=== PATIENT | male | born 1940 | race Caucasian/White ===

== ENCOUNTER 2017-12-14 12:26 | Emergency (ER) | payer MEDICARE, OTHER ==
[2017-12-14 12:45] VITALS: BP 174/81
--- NOTE | 2017-12-14 13:23 | UC ---
Phil Howe Stephanie, scribed for Edwin Witt MD on 12/14/17 at 1304 . Cardiac HPI - HPI Summary HPI Summary: The pt is a 77 y/o M that presents to with CP that began yesterday. The CP is intermittent and is aggravated by exertion and alleviated by rest. The CP is described as pressure/heaviness. Symptoms include chills, diaphoresis, gastric reflux, SOB, chronic knee pain, and black stool that has been present for over 1 week. The CP is located in the mid sternal chest and radiates to the posterior neck and back. The pt reports that last night it felt like someone was sitting on his chest. The pt denies nausea. Currently the pt is not experiencing pain but at its worse, the pain is described as an 8 in severity. - History of Current Complaint Chief Complaint: UCChestPain Stated Complaint: CHEST PAIN DIZZY Time Seen by Provider: 12/14/17 12:42 Hx Obtained From: Patient Onset/Duration: Lasting Days - 1, Resolved Timing: Intermittent Episodes Lasting: - during exertion Initial Severity: Moderate Current Severity: None Chest Pain Location: Mid Sternal Character: Heaviness, Pressure/Squeezing Aggravating Factor(s): Exertion Alleviating Factor(s): Rest Associated Signs & Symptoms: Positive: Chest Pain, SOB, Diaphoresis. Negative: Nausea/Vomiting - Allergy/Home Medications Allergies/Adverse Reactions: Allergies Allergy/AdvReac Type Severity Reaction Status Date / Time "PAIN PILL" AdvReac Intermediate GI Upset Uncoded 01/16/16 15:44 PMH/Surg Hx/FS Hx/Imm Hx Cardiovascular History: Cardiac Disease - Surgical History Surgical History: Yes Surgery Procedure, Year, and Place: carotid artery left; torn rotator cuff right - Family History Known Family History: Positive: Unknown - Pt denies family history when asked. - Social History Occupation: Retired Lives: With Family Alcohol Use: Daily Alcohol Amount: "A FEW A DAY" Substance Use Type: None Smoking Status (MU): Former Smoker When Did the Patient Quit Smoking/Using Tobacco: 2002 - Immunization History Most Recent Tetanus Shot: 01/13/16 Review of Systems Constitutional: Chills Skin: Other - diaphoresis Eyes: Negative ENT: Negative Respiratory: Shortness Of Breath Cardiovascular: Chest Pain Gastrointestinal: Other - gastric reflux, black stool Genitourinary: Negative Motor: Negative Neurovascular: Negative Musculoskeletal: Other: - chronic knee pain Neurological: Negative Psychological: Negative All Other Systems Reviewed And Are Negative: Yes Physical Exam Triage Information Reviewed: Yes Vital Signs: Initial Vital Signs Temp 98.2 F 12/14/17 12:36 Pulse 88 12/14/17 12:36 Resp 18 12/14/17 12:36 BP 174/81 12/14/17 12:36 Pulse Ox 99 12/14/17 12:36 Vital Signs Reviewed: Yes - Additional Comments General: well-appearing, no pain distress Skin: warm, color reflects adequate perfusion, dry Head: normal Eyes: EOMI, CRISTINA ENT: normal Neck: supple, nontender Respiratory: CTA, breath sounds present Cardiovascular: RRR Abdomen: soft, nontender Bowel: present Musculoskeletal: normal, strength/ROM intact Neurological: normal, sensory/motor intact, A&O x3 Psychological: affect/mood appropriate Diagnostics - EKG Cardiac Rhythm: Sinus: Normal - 12:33, 80 BPM, RBBB, No old EKG to compare to. Ectopy: None ST Segment: Normal - Assessment/Plan Course Of Treatment: Medications reviewed. I RECOMMENDED TRANSFER TO THE ED BY AMBULANCE. THE PATIENT DECLINED. AMA FORM EXPLAINED AND PATIENT SIGNED IT. EKG WITHOUT STEMI. PATIENT ALSO REPORTS BLACK STOOLS SO, ANEMIA IS ANOTHER CONCERN. DISCUSSED WITH DR CHRISTOPHER BARTON IN THE ED. - Clinical Impression Provider Diagnoses: CHEST PAIN, SHORTNESS OF BREATH Discharge - Discharge Plan Condition: Guarded Disposition: AGAINST MEDICAL ADVICE Patient Education Materials: Chest Pain (ED), Shortness of Breath (ED) Referrals: Segun Salinas MD [Primary Care Provider] - Additional Instructions: GO DIRECTLY TO THE EMERGENCY DEPARTMENT FOR FURTHER EVALUATION OF YOUR CHEST PAIN AND SHORTNESS OF BREATH. The documentation as recorded by the Phil maloney Stephanie accurately reflects the service I personally performed and the decisions made by me, Edwin Witt MD.
== END 2017-12-14 12:58 | disposition left against medical advice (07) ==
LOC: UCEAST 12:26
DX: R07.89 Other chest pain (principal); R06.02 Shortness of breath; R61 Generalized hyperhidrosis; I45.10 Unspecified right bundle-branch block; Z87.891 Personal history of nicotine dependence
CPT/HCPCS: 93005; 99212; G0463

== ENCOUNTER 2017-12-14 13:17 | Inpatient (IN) | payer MEDICARE, OTHER ==
--- NOTE | 2017-12-14 14:12 | RAD ---
HISTORY: Chest pain COMPARISONS: February 10, 2014 VIEWS: 4: Frontal dual-energy and lateral views of the chest. FINDINGS: CARDIOMEDIASTINAL SILHOUETTE: The cardiomediastinal silhouette is normal. MORENO: The moreno are normal. PLEURA: The costophrenic angles are sharp. No pleural abnormalities are noted. LUNG PARENCHYMA: The lungs are clear. ABDOMEN: The upper abdomen is clear. There is no subphrenic gas. BONES AND SOFT TISSUES: No bone or soft tissue abnormalities are noted. OTHER: None. IMPRESSION: NO ACTIVE CARDIOPULMONARY DISEASE.
[2017-12-14 14:42] LABS: ABS Basophils 0 10^3/ul (0-0.2); ABS Eosinophils 0 10^3/ul (0-0.6); ABS Lymphocytes 1.4 10^3/ul (1.0-4.8); ABS Monocytes 0.4 10^3/ul (0-0.8); ABS Neutrophils 3.5 10^3/ul (1.5-7.7); ABS Nucleated RBC 0 10^3/ul; Eosinophil % 0.7 % (0-6); Hematocrit 30 % (42-52); Hemoglobin 10.2 g/dl (14.0-18.0); Lymphocyte % 26.3 % (25-47); Mean Corpuscular HGB Conc 34 g/dl (31-36); Mean Corpuscular Hemoglobin 33 pg (27-31); Mean Corpuscular Volume 96 fL (80-94); Mean Platelet Volume 7 um3 (7.4-10.4); Nucleated Red Blood Cells % 0.1; Platelet Count 169 10^3/ul (150-450); Red Blood Count 3.11 10^6/ul (4.0-5.4); Red Cell Distribution Width 14 % (10.5-15); White Blood Count 5.2 10^3/ul (3.5-10.8)
[2017-12-14 16:22] LABS: Urine Appearance Clear; Urine Blood Negative (Negative); Urine Color Yellow; Urine Ketones Negative (Negative); Urine Protein Negative (Negative); Urine Specific Gravity 1.018 (1.010-1.030); Urine Urobilinogen Negative (Negative)
[2017-12-14] MEDS ORDERED: Pantoprazole IV* 40 MG IV ONE (16:56)
[2017-12-14] MEDS: Pantoprazole IV* 80 MG in NS 0.9% 250 ML* 250 ML IVPB SCH (19:13)
[2017-12-14] MEDS: NS 0.9% 1000 ML* 1,000 ML IV SCH (20:13)
[2017-12-14 20:38] LABS: Hematocrit 28 % (42-52); Hemoglobin 9.7 g/dl (14.0-18.0)
--- NOTE | 2017-12-15 01:01 | HP ---
HISTORY AND PHYSICAL: DATE OF ADMISSION: 12/14/17 PRIMARY CARE PROVIDER: None. VASCULAR SURGEON: Segun Salinas MD ATTENDING PHYSICIAN: Zara Marley DO * (dictated by Krystian Gibson NP) CHIEF COMPLAINT: Shortness of breath and chest pain with melena. HISTORY OF PRESENT ILLNESS: Mr. Reilly is a 77-year-old male with past medical history significant for bilateral carotid stenosis, who is status post a left carotid endarterectomy and has a right occluded carotid who presented initially to the urgent care center with complaints of shortness of breath and chest pain. The patient states that for the last 3 to 4 months, he has had shortness of breath and that it has been worse over the last week. He also reports intermittently for 1 week chest pain that is worse with ambulation and improves when he is resting. He also reports feeling "woozy and dizzy" especially when he bends down and stands up. He reports chills and hot flashes. He reports melena for 1 week. He denies any nausea, vomiting, diarrhea, diaphoresis, abdominal pain, urinary symptoms such as dysuria or hematuria. He describes his chest pain as a heaviness and then if he is doing an activity such as shovelling, he describes the pain as an ache on the left side of his chest. Due to his symptoms, he decided to present to urgent care center for further evaluation. The patient also reports indigestion. While at Urgent Care, the patient had an EKG showing a sinus rhythm at a rate of 80 and a right bundle-branch block with no previous EKGs for comparison. The patient was asked to be taken to the emergency room by EMS and he declined and drove himself to the emergency room. While in the emergency room, the patient denied shortness of breath or chest pain. He had labs with a troponin of 0.00, hemoglobin of 10.2, hematocrit of 30. He had a guaiac that was positive. He had a repeat EKG showing a sinus rhythm at a rate of 75. No acute signs of ischemia and this was similar to previous EKG. He had a chest x-ray showing no active cardiopulmonary disease. Due to the patient's symptoms, the Hospitalists were asked to evaluate the patient for admission. PAST MEDICAL HISTORY: Bilateral carotid stenosis with right carotid occlusion. PAST SURGICAL HISTORY: 1. Status post left carotid endarterectomy. 2. Status post right rotator cuff repair. HOME MEDICATIONS: 1. Aspirin 325 mg oral daily. 2. Acetaminophen 1000 mg oral daily as needed for pain. ALLERGIES: No known drug allergies. FAMILY HISTORY: The patient's father passed at age 58 from what they were told was a blood clot to his heart. The patient's sister has a history of diabetes and an unknown cancer that she is currently undergoing treatment for. SOCIAL HISTORY: The patient is a former smoker. He reports quitting 14 years ago. Prior to that, he reports a few year smoking history of 1 pack a day. He reports drinking 2 beers daily and occasionally more. He denies recreational drug use. 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 His , Ramandeep Reilly , will be his surrogate decision maker in the event he is unable to make decisions for himself. REVIEW OF SYSTEMS: I performed an 11-point review of systems, all the pertinent positive and negatives are mentioned in the history of present illness. Remaining review of systems are negative. PHYSICAL EXAMINATION GENERAL APPEARANCE: The patient is alert and pleasant, appears to be in no acute distress. VITAL SIGNS: Temperature 97.9, heart rate 60, respiratory rate 11, O2 sat 99% on room air, blood pressure 138/62. HEENT: Normocephalic, atraumatic. Pupils are equal and reactive to light. Extraocular movements are intact. RESPIRATORY: There is no accessory muscle use. Lungs are clear to auscultation , bilateral. CARDIOVASCULAR: Regular rate and rhythm. S1, S2 present. There are no murmurs , rubs, or gallops heard. ABDOMEN: Soft, nontender, nondistended. There are bowel sounds present x4. EXTREMITIES: There is no lower extremity edema. DP, PT pulses are 2+ and symmetric. MUSCULOSKELETAL: There is no clubbing or cyanosis noted. The patient exhibits good strength in all extremities. The patient reports reproduction of chest pain with palpation, but states that the pain with palpation is different than the pain he has with exertion. NEUROLOGIC: The patient is alert and oriented x4. Cranial nerves II through XII are grossly intact. PSYCHOLOGICAL: The patient is calm and cooperative. SKIN: There are no rashes or abnormalities seen. DIAGNOSTIC STUDIES/LABORATORY DATA: Sodium 136, potassium 4.0, chloride 105, CO2 26, BUN 28, creatinine 1.25. Glucose 91, troponin 0.00. White blood cell count 5.9, hemoglobin 10.2, hematocrit 30, and platelet count 169. A guaiac positive, urinalysis negative. EKG from Urgent Care shows a sinus rhythm with a rate of 80 and a right bundle- branch block and no acute signs of ischemia. EKG from the emergency room shows a sinus arrhythmia with a rate of 75 and no acute signs of ischemia. There are no previous EKGs for comparison. Chest x-ray from today, radiologist's impression, no active cardiopulmonary disease. IMPRESSION: Mr. Reilly is a 77-year-old male with past medical history significant for bilateral carotid stenosis, status post left carotid endarterectomy who presented to Urgent Care and then the emergency room with complaints of shortness of breath, chest pain, and melena. He will be admitted as an observation for chest pain and suspected upper GI bleed. ASSESSMENT: 1. Melena. I suspect this represents an upper GI bleed. The patient takes a full dose of aspirin daily and reports heartburn. GI has been contacted by the emergency room and will consult on the patient. He has been given a dose of Protonix 80 mg bolus and will be placed on a Protonix drip. We will trend his H and H and have 2 large [address] IVs in place at all times. We will get orthostatic vital signs on him. I suspect that some of the patient's shortness of breath and dizziness are secondary to his GI bleeding. 2. Chest pain. The patient's chest pain is concerning. It is exertional and improves with rest. But due to his GI bleed, I am unable to continue aspirin on him. He does not have an elevated troponin or EKG changes. For now, the plan will be to trend his troponins, monitor him on telemetry. We will touch base with Cardiology tomorrow and see if they have any further recommendations. He will need a stress test eventually. His RAINER score is 2. 3. Carotid stenosis. The patient follows with Dr. Salinas. 4. Fluids, electrolytes and nutrition: The patient will be on a clear liquid diet. He will have normal saline at 125 an hour. 5. Code status: Full code. 6. DVT prophylaxis: The patient is at high risk. He will have SCDs only as chemical DVT prophylaxis is contraindicated in the setting of a GI bleed. 7. Disposition: Observation. TIME SPENT: Time for this admission was approximately 60 minutes with greater than half of that was spent with the patient and his daughter discussing medications, past medical history and events leading up to his arrival today and performing a physical examination. The case has been reviewed with the attending, Dr. Marley, who agrees with the plan of care. KRYSTIAN ARMENDARIZ, [place] [id number]/CPS #: [id number] JHONATHAN
--- NOTE | 2017-12-15 01:58 | CONS ---
GASTROENTEROLOGY CONSULTATION: DATE OF CONSULT: 12/14/17 HOSPITAL PROVIDER: Zara Marley DO PRIMARY CARE PHYSICIAN: None. REASON FOR CONSULTATION: Melena. HISTORY OF PRESENT ILLNESS: Mr. Reilly is a pleasant 77-year-old male with a history of bilateral carotid artery disease, status post left endarterectomy, on baby aspirin who presented earlier today with a 1-week history of melena with associated dyspnea and chest pain. He denies a prior history of these symptoms. He denies [id number] NSAID use besides his baby aspirin. He describes his shortness of breath that has been intermittently worsening over the past 3 months. Over the last week, he developed melena as well as significant pressure in his chest described like "someone sitting on my chest." He admits to significant dyspnea on exertion over the last few weeks and feeling "woozy." He denies nausea, vomiting, but does admit to chronic gastroesophageal reflux disease intermittently, but denies dysphagia to solids and liquids. He denies bright red blood per rectum. He does not see a primary care physician regularly. Therefore, it is unknown what his baseline hemoglobin is. He states he has never been told that he was anemic in the past. He denies a previous history of an endoscopy and colonoscopy. No family history of gastrointestinal malignancies. Gastroenterology was consulted for the patient's history of melena and positive melena on rectal exam in the ER. He is also found to be slightly anemic with a hemoglobin of 10.2 and an MCV of 96. PAST MEDICAL HISTORY: 1. Bilateral carotid artery disease. PAST SURGICAL HISTORY: 1. Left endarterectomy. 2. Right rotator cuff tear. HOME MEDICATIONS: 1. Aspirin 81 mg daily. 2. Tylenol 1000 mg as needed. ALLERGIES: To PAIN PILL?, which causes a GI upset. SOCIAL HISTORY: He admits to drinking 2 beers daily. Denies recreational drug use. Quit tobacco 14 years ago. 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 REVIEW OF SYSTEMS: On a 14-point scale has been reviewed and all pertinent positives and negatives have been noted above in the HPI. PHYSICAL EXAM: Vital Signs: Temperature 97.8, heart rate 92, respirations 16, oxygenation 99% on room air, blood pressure 125/70. Generally, the patient is alert and oriented x3, in no acute distress, lying comfortably in his bed, well - nourished appearing. HEENT: Normocephalic, atraumatic. Extraocular muscles intact. Anicteric sclerae bilaterally. Moist mucous membranes. Cardiovascular : Regular rate and rhythm. Pulmonary: Clear to auscultation bilaterally. Abdominal Exam: Soft, nontender, nondistended. No rebound, guarding, or rigidity. No surgical scars are noted. Extremities: No clubbing, cyanosis or edema. Neurological: No gross focal deficits. LABORATORY DATA: WBCs 5.2, hemoglobin 10.2, hematocrit 30, platelets 169. PTT 28.1, sodium 136, potassium 4.0, chloride 105, CO2 26, anion gap 5, BUN 28, creatinine 1.25, glucose 91, calcium 9.1, magnesium 2.5, total bilirubin 0.40, AST 22, ALT 18, alkaline phosphatase 28, total creatine kinase 198, CK-MB 6.0, troponin 0.00, beta natriuretic peptide 50, total protein 6.3, albumin 3.6, globulin 2.7, TSH 2.70. ASSESSMENT AND PLAN: Mr. Reilly is a pleasant 77-year-old male with a history of bilateral carotid artery disease, status post left endarterectomy, on aspirin 81 mg daily, who presented to [facility] with a 1-week history of melena and worsening shortness of breath, dyspnea on exertion and chest pain. He was found to be slightly anemic with hemoglobin of 10.2. Rectal examination revealed melena. He was also noted to have acute kidney injury with a creatinine of 1.25 on admission. He denies a previous history of an endoscopy and colonoscopy. Gastroenterology was consulted for further evaluation and treatment of patient's symptoms. 1. Melena. The patient has had a 1-week history of melena and is currently on aspirin 81 mg daily. He denies a prior history of an endoscopy and denies any recent [id number] NSAID use. He is in need of an upper endoscopy for further evaluation. If upper endoscopy is negative, he may need a colonoscopy for further evaluation. Recommend monitoring hemoglobin daily and transfuse if hemoglobin becomes less than 7. The patient may be on clear liquids tonight and NPO after midnight and we will plan to perform an endoscopy tomorrow for further evaluation. The patient is currently on a Protonix drip for possible upper GI bleeding. 2. Chest pain. In the ER, the patient had a troponin of 0.00 and a normal EKG which rules out an acute issue. There is a question as to whether or not the patient will receive a stress test. If he does, we will need a cardiac clearance prior to performing an upper endoscopy tomorrow. 3. Acute kidney injury. May be secondary to gastrointestinal bleeding. Recommend following creatinine level in a.m. The patient is currently on IV fluids. 4. Bilateral carotid artery disease, status post endarterectomy. Patient is on aspirin 81 mg daily. Thank you, Dr. Marley, for allowing us to participate in the care of your patient. If you should have any further questions or concerns, please do not hesitate to contact us. [id number]/[facility] #: [id number] JHONATHAN
[2017-12-15 02:08] LABS: Hematocrit 27 % (42-52); Hemoglobin 9.5 g/dl (14.0-18.0)
[2017-12-15] MEDS: Pantoprazole IV* 80 MG in NS 0.9% 250 ML* 250 ML IVPB SCH ×2 (05:38→16:43)
[2017-12-15] MEDS: NS 0.9% 1000 ML* 1,000 ML IV SCH (05:38)
[2017-12-15 08:19] LABS: ABS Basophils 0 10^3/ul (0-0.2); ABS Eosinophils 0.1 10^3/ul (0-0.6); ABS Lymphocytes 1.2 10^3/ul (1.0-4.8); ABS Monocytes 0.4 10^3/ul (0-0.8); ABS Neutrophils 3.5 10^3/ul (1.5-7.7); ABS Nucleated RBC 0 10^3/ul; Hematocrit 27 % (42-52); Hemoglobin 9.3 g/dl (14.0-18.0); Lymphocyte % 22.9 % (25-47); Mean Corpuscular HGB Conc 35 g/dl (31-36); Mean Corpuscular Hemoglobin 33 pg (27-31); Mean Corpuscular Volume 96 fL (80-94); Mean Platelet Volume 6 um3 (7.4-10.4); Nucleated Red Blood Cells % 0; Platelet Count 146 10^3/ul (150-450); Red Blood Count 2.79 10^6/ul (4.0-5.4); Red Cell Distribution Width 14 % (10.5-15); White Blood Count 5.2 10^3/ul (3.5-10.8)
[2017-12-15 08:37] LABS: EGFR Non-African American 66.3 (>60)
[2017-12-15] MEDS ORDERED: fentaNYL* 50 MCG/ML 2 ML VIAL (100 MCG VIAL) ONE (12:53)
[2017-12-15] MEDS ORDERED: Midazolam* 1 MG/ML 10 ML VIAL (10 MG) ONE (12:53)
--- NOTE | 2017-12-15 16:29 | ED ---
Jan Howe Nikita, scribed for Trever Chairez MD on 12/14/17 at 1435 . HPI Cardiac - HPI Summary HPI Summary: This patient is a 77 year old M presenting to ED with a chief complaint of intermittent SOB and intermittent chest pain, worsening from baseline since last week. The CC is described as SOB for 3-4 months and pressure to the chest. The patient rates the pain 1-2/10 in severity. Symptoms aggravated by ambulating. Symptoms alleviated by nothing. Patient reports dizziness described as woozy, chills, hot flashes, melena for the past week. Patient denies cough, N/V, diaphoresis. - History of Current Complaint Chief Complaint: EDChestPainROMI Stated Complaint: CHEST PAIN-SENT FROM CC Hx Obtained From: Patient Onset/Duration: Started Days Ago, Still Present Timing: Constant, Lasting Days Current Severity: None Pain Intensity: 0 Pain Scale Used: 0-10 Numeric Character: Other: - "like someone is sitting on my chest" Aggravating Factor(s): Movement Alleviating Factor(s): Nothing Associated Signs and Symptoms: Positive: Other: - Patient reports dizziness described as woozy, chills, hot flashes, melena for the past week. Patient denies cough, N/V, diaphoresis. - Allergy/Home Medications Allergies/Adverse Reactions: Allergies Allergy/AdvReac Type Severity Reaction Status Date / Time "PAIN PILL" AdvReac Intermediate GI Upset Uncoded 01/16/16 15:44 PMH/Surg Hx/FS Hx/Imm Hx Cardiovascular History: Reports: Other Cardiovascular Problems/Disorders - BI LAT CARROTID NARROWING, SURG, (LEFT OCCLUDED) RX BABY ASPRIN - Surgical History Surgery Procedure, Year, and Place: carotid artery left; torn rotator cuff right - Immunization History Date of Influenza Vaccine: 10/10 Infectious Disease History: No Infectious Disease History: Denies: Hx Clostridium Difficile, Hx Hepatitis, Hx Human Immunodeficiency Virus (HIV), Hx of Known/Suspected MRSA, Hx Shingles, Hx Tuberculosis, Hx Known/ Suspected VRE, Hx Known/Suspected VRSA, History Other Infectious Disease, Traveled Outside the [place] in Last 30 Days - Family History Known Family History: Positive: None, Cardiac Disease - OR, Diabetes - Social History Alcohol Use: Daily Alcohol Amount: 2 beers daily Substance Use Type: Reports: None Hx Tobacco Use: No Smoking Status (MU): Former Smoker Review of Systems Positive: Chills, Other - hot flashes Positive: Chest Pain Positive: Shortness Of Breath. Negative: Cough Positive: Other - melena. Negative: Vomiting, Nausea Neurological: Other - dizziness All Other Systems Reviewed And Are Negative: Yes Physical Exam - Summary Physical Exam Summary: VITAL SIGNS: Reviewed. GENERAL: ~Patient is a well-developed and nourished male who is lying comfortable in the stretcher. ~Patient is not in any acute respiratory distress. HEAD AND FACE: No signs of trauma. ~No ecchymosis, hematomas or skull depressions. No sinus tenderness. EYES: PERRLA, EOMI x 2, No injected conjunctiva, no nystagmus. EARS: Hearing grossly intact. Ear canals and tympanic membranes are within normal limits. MOUTH: Oropharynx within normal limits. NECK: Supple, trachea is midline, no adenopathy, no JVD, no carotid bruit, no c- spine tenderness, neck with full ROM. CHEST: Symmetric, no tenderness at palpation LUNGS: Clear to auscultation bilaterally. No wheezing or crackles. CVS: Regular rate and rhythm, S1 and S2 present, no murmurs or gallops appreciated. ABDOMEN: Soft, non-tender. No signs of distention. No rebound no guarding, and no masses palpated. Bowel sounds are normal. EXTREMITIES: FROM in all major joints, no edema, no cyanosis or clubbing. NEURO: Alert and oriented x 3. No acute neurological deficits. Speech is normal and follows commands. SKIN: Dry and warm Rectal exam: hemorrhoid at 12 oclock. Rectal tone is normal. Melena. Triage Information Reviewed: Yes Vital Signs On Initial Exam: Initial Vitals Temp Pulse Resp BP Pulse Ox 97.9 F 85 15 138/62 100 12/14/17 13:19 12/14/17 13:19 12/14/17 13:19 12/14/17 13:19 12/14/17 13:19 Vital Signs Reviewed: Yes Diagnostics - Vital Signs Vital Signs Temp Pulse Resp BP Pulse Ox 12/14/17 13:19 97.9 F 85 15 138/62 100 - Laboratory Lab Results: Lab Results 12/14/17 12/14/17 12/14/17 Range/Units 14:19 14:19 14:19 WBC (3.5-10.8) 10^3/ul RBC (4.0-5.4) 10^6/ul Hgb (14.0-18.0) g/dl Hct (42-52) % MCV (80-94) fL MCH (27-31) pg MCHC (31-36) g/dl RDW (10.5-15) % Plt Count (150-450) 10^3/ul MPV (7.4-10.4) um3 Neut % (Auto) (38-83) % Lymph % (Auto) (25-47) % Kane % (Auto) (1-9) % Eos % (Auto) (0-6) % Baso % (Auto) (0-2) % Absolute Neuts (auto) (1.5-7.7) 10^3/ul Absolute Lymphs (auto) (1.0-4.8) 10^3/ul Absolute Monos (auto) (0-0.8) 10^3/ul Absolute Eos (auto) (0-0.6) 10^3/ul Absolute Basos (auto) (0-0.2) 10^3/ul Absolute Nucleated RBC 10^3/ul Nucleated RBC % APTT 28.1 (26.0-36.3) seconds Sodium 136 (133-145) mmol/L Potassium 4.0 (3.5-5.0) mmol/L Chloride 105 (101-111) mmol/L Carbon Dioxide 26 (22-32) mmol/L Anion Gap 5 (2-11) mmol/L BUN 28 H (6-24) mg/dL Creatinine 1.25 H (0.67-1.17) mg/dL Est GFR ( Amer) 72.0 (>60) Est GFR (Non-Af Amer) 56.0 (>60) BUN/Creatinine Ratio 22.4 H (8-20) Glucose 91 (70-100) mg/dL Calcium 9.1 (8.6-10.3) mg/dL Magnesium 2.5 (1.9-2.7) mg/dL Total Bilirubin 0.40 (0.2-1.0) mg/dL AST 22 (13-39) U/L ALT 18 (7-52) U/L Alkaline Phosphatase 28 L (34-104) U/L Total Creatine Kinase 198 (10-223) U/L CK-MB (CK-2) 6.0 (0.6-6.3) ng/mL Troponin I 0.00 (<0.04) ng/mL B-Natriuretic Peptide 50 ( - 100) pg/mL Total Protein 6.3 L (6.4-8.9) g/dL Albumin 3.6 (3.2-5.2) g/dL Globulin 2.7 (2-4) g/dL Albumin/Globulin Ratio 1.3 (1-3) TSH 2.70 (0.34-5.60) mcIU/mL Urine Color Urine Appearance Urine pH (5-9) Ur Specific [place] (1.010-1.030) Urine Protein (Negative) Urine Ketones (Negative) Urine Blood (Negative) Urine Nitrate (Negative) Urine Bilirubin (Negative) Urine Urobilinogen (Negative) Ur Leukocyte Esterase (Negative) Urine Glucose (Negative) Blood Type Antibody Screen 12/14/17 12/14/17 12/14/17 Range/Units 14:19 14:19 16:00 WBC 5.2 (3.5-10.8) 10^3/ul RBC 3.11 L (4.0-5.4) 10^6/ul Hgb 10.2 L (14.0-18.0) g/dl Hct 30 L (42-52) % MCV 96 H (80-94) fL MCH 33 H (27-31) pg MCHC 34 (31-36) g/dl RDW 14 (10.5-15) % Plt Count 169 (150-450) 10^3/ul MPV 7 L (7.4-10.4) um3 Neut % (Auto) 65.8 (38-83) % Lymph % (Auto) 26.3 (25-47) % Kane % (Auto) 7.0 (1-9) % Eos % (Auto) 0.7 (0-6) % Baso % (Auto) 0.2 (0-2) % Absolute Neuts (auto) 3.5 (1.5-7.7) 10^3/ul Absolute Lymphs (auto) 1.4 (1.0-4.8) 10^3/ul Absolute Monos (auto) 0.4 (0-0.8) 10^3/ul Absolute Eos (auto) 0 (0-0.6) 10^3/ul Absolute Basos (auto) 0 (0-0.2) 10^3/ul Absolute Nucleated RBC 0 10^3/ul Nucleated RBC % 0.1 APTT (26.0-36.3) seconds Sodium (133-145) mmol/L Potassium (3.5-5.0) mmol/L Chloride (101-111) mmol/L Carbon Dioxide (22-32) mmol/L Anion Gap (2-11) mmol/L BUN (6-24) mg/dL Creatinine (0.67-1.17) mg/dL Est GFR ( Amer) (>60) Est GFR (Non-Af Amer) (>60) BUN/Creatinine Ratio (8-20) Glucose (70-100) mg/dL Calcium (8.6-10.3) mg/dL Magnesium (1.9-2.7) mg/dL Total Bilirubin (0.2-1.0) mg/dL AST (13-39) U/L ALT (7-52) U/L Alkaline Phosphatase (34-104) U/L Total Creatine Kinase (10-223) U/L CK-MB (CK-2) (0.6-6.3) ng/mL Troponin I (<0.04) ng/mL B-Natriuretic Peptide ( - 100) pg/mL Total Protein (6.4-8.9) g/dL Albumin (3.2-5.2) g/dL Globulin (2-4) g/dL Albumin/Globulin Ratio (1-3) TSH (0.34-5.60) mcIU/mL Urine Color Yellow Urine Appearance Clear Urine pH 6.0 (5-9) Ur Specific Madison 1.018 (1.010-1.030) Urine Protein Negative (Negative) Urine Ketones Negative (Negative) Urine Blood Negative (Negative) Urine Nitrate Negative (Negative) Urine Bilirubin Negative (Negative) Urine Urobilinogen Negative (Negative) Ur Leukocyte Esterase Negative (Negative) Urine Glucose Negative (Negative) Blood Type A Positive Antibody Screen Negative Result Diagrams: 12/15/17 08:06 12/15/17 08:06 Lab Statement: Any lab studies that have been ordered have been reviewed, and results considered in the medical decision making process. - Radiology CXR Radiology Interpretation Completed By: Radiologist - NO ACTIVE CARDIOPULMONARY DISEASE. ED physician has reviewed this radiology report. - EKG 1325 Cardiac Rate: NL EKG Rhythm: Sinus Rhythm - 75 BPM EKG Interpretation: No ST elevations. Normal axis. Disposition - Course Assessment/Plan: This patient is a 77 year old M presenting to ED with a chief complaint of SOB and chest pain, worsening from baseline since last week.Test results are without significant abnormalities except slight anemia possibly secondary to GI bleed, BUN is 28 and creatinine is 1.25. Significant for slight renal insufficiency. Troponin is 0.00. Urinalysis is negative for UTI. Occult blood is positive. Consulted Dr. Min who will consult with this pt, consulted with dr. Marley who will accept this pt for admission. The pt is hemodynamically stable, alert and oriented x3. - Differential Dx - Cardiopulmonary Differential Diagnoses - Cardiopulmonary: Other - GI bleed - Diagnoses Provider Diagnoses: GI bleed - Physician Notifications Discussed Care Of Patient With: Loretta Min Time Discussed With Above Provider: 15:48 Instructed by Provider To: Other - Dr. Min will consult the pt. Consulted Dr. Marley at 1630 who accepts the pt for admission. Discharge - Discharge Plan Condition: Stable Disposition: ADMITTED TO [facility] The documentation as recorded by the Jan maloney Nikita accurately reflects the service I personally performed and the decisions made by Contreras vo Walter, MD.
--- NOTE | 2017-12-15 20:52 | PN ---
Subjective Date of Service: 12/15/17 Interval History: Patient seen and examined at bedside. Denies fever, chills, shortness of breath , chest discomfort, N/V/D. Pt has not been ambulating to know if he has exertional chest pain or shortness of breath. Tele: Sinus rhythm, rate 60-70's Family History: Unchanged from Admission Social History: Unchanged from Admission Past Medical History: Unchanged from Admission Objective Active Medications: Omeprazole (Prilosec Cap*) 40 mg PO DAILY SILVERIO Vital Signs - 8 hr 12/15/17 12/15/17 14:36 16:03 Temperature 97.4 F 97.5 F Pulse Rate 73 59 Respiratory 18 16 Rate Blood Pressure 126/59 108/41 (mmHg) O2 Sat by Pulse 96 99 Oximetry Oxygen Devices in Use Now: None Appearance: NAD, sitting on the side of the bed Ears/Nose/Mouth/Throat: Mucous Membranes Moist Respiratory: Symmetrical Chest Expansion and Respiratory Effort, Clear to Auscultation Cardiovascular: NL Sounds; No Murmurs; No JVD, RRR Abdominal: NL Sounds; No Tenderness; No Distention Extremities: No Edema Skin: No Rash or Ulcers Neurological: Alert and Oriented x 3, NL Muscle Strength and Tone Lines/Tubes/Other Access: Clean, Dry and Intact Peripheral IV - site benign Nutrition: Taking PO's Result Diagrams: 12/15/17 08:06 12/15/17 08:06 Additional Lab and Data: Assess/Plan/Problems-Billing Assessment: Mr. Reilly is a 77 yo male with PMH significant for bilateral carotid artery stenosis with a right side occlusion who presented to the emergency room with complaints of shortness of breath, chest discomfort, and melena. - Patient Problems (1) GI bleed Code(s): K92.2 - GASTROINTESTINAL HEMORRHAGE, UNSPECIFIED SNOMED Code(s): 43558324 Comment: - S/P EGD with Dr. Fisher - Suspect secondary to ulcers - Start omeprazole (2) Chest pain Code(s): R07.9 - CHEST PAIN, UNSPECIFIED SNOMED Code(s): 34254805 Comment: - Denies CP and SOB at this time, but he has not been ambulating yet today - Troponins 0.00, 0.01, 0.01, 0.00 - Will plan for an exercise nuclear stress test in the AM - Will add lipid panel and HgA1C to this AMs labs (3) Carotid artery disease Code(s): I77.9 - DISORDER OF ARTERIES AND ARTERIOLES, UNSPECIFIED SNOMED Code( s): 672674740 Comment: - With right occlusion - Resume ASA when ok with GI (4) DVT prophylaxis Code(s): XSD6519 - SNOMED Code(s): 121411840 Comment: - SCDs, chemical DVT prophylaxis contraindicated in getting of GI bleed (5) Full code status Code(s): Z78.9 - OTHER SPECIFIED HEALTH STATUS SNOMED Code(s): 681660652 Status and Disposition: OBV to Inpatient. Discharge to home when medically stable, suspect in the AM.
[2017-12-16 06:30] LABS: ABS Basophils 0 10^3/ul (0-0.2); ABS Eosinophils 0.1 10^3/ul (0-0.6); ABS Lymphocytes 1.2 10^3/ul (1.0-4.8); ABS Monocytes 0.3 10^3/ul (0-0.8); ABS Neutrophils 3.2 10^3/ul (1.5-7.7); ABS Nucleated RBC 0 10^3/ul; Eosinophil % 2.2 % (0-6); Hematocrit 27 % (42-52); Hemoglobin 9.2 g/dl (14.0-18.0); Lymphocyte % 25.3 % (25-47); Mean Corpuscular HGB Conc 34 g/dl (31-36); Mean Corpuscular Hemoglobin 33 pg (27-31); Mean Corpuscular Volume 96 fL (80-94); Mean Platelet Volume 7 um3 (7.4-10.4); Nucleated Red Blood Cells % 0; Platelet Count 144 10^3/ul (150-450); Red Cell Distribution Width 14 % (10.5-15); White Blood Count 4.9 10^3/ul (3.5-10.8)
[2017-12-16] MEDS ORDERED: Omeprazole CAP* 20 MG PO SCH (09:00)
[2017-12-16] MEDS ORDERED: Aminophylline IV* 25 MG/ML 10 ML VIAL ONE (11:45)
[2017-12-16] MEDS ORDERED: Regadenoson* 0.4 MG/5 ML SYRINGE ONE (11:45)
--- NOTE | 2017-12-16 13:07 | RAD ---
Edited for charges. INDICATION: Chest pain and shortness of breath. COMPARISON: No relevant prior exams available on the [facility] [place] for comparison. TECHNIQUE: 10.300 mCi of Tc-99m Myoview were administered IV. SPECT images of the heart were obtained. Later on the same day. Under the direction of Dr. Reilly, an exercise stress test was performed. The patient achieved a peak heart rate of 151 bpm, 106 % of the age- predicted maximum. Subsequently, the patient was given an IV injection of 25.310 mCi Tc- 99m Myoview. SPECT images of the heart were obtained and a gated wall motion study was performed. FINDINGS: Gated wall motion images were obtained at stress and demonstrate hypokinesia of the septum and anterior wall. The calculated left ventricular ejection fraction is 59 % at stress. Estimated LEFT ventricular end diastolic volume is 78 mL. TID 0.97. Artifact from diaphragmatic attenuation and gut activity. Based on review of the attenuation corrected and non corrected images the distribution of radiopharmaceutical within the myocardium on the stress and rest images is within normal limits. No fixed or reversible regions of hypoperfusion evident. IMPRESSION: 1. No evidence for stress induced myocardial ischemia or presence of an infarct. 2. Hypokinesia at the septum and anterior wall. The hypokinesia at the inferior wall may be overestimated due to artifact from diaphragmatic attenuation. Estimated LEFT ventricular ejection fraction remains within normal limits. ASSESSMENT: Low risk based on nuclear portion Based on imaging criteria from ACC/AHA 2002 Guideline Update for the Management of Patients With Chronic Stable Angina Table 23. Noninvasive Risk Stratification. MTDD
--- NOTE | 2017-12-16 14:48 | PRO ---
CC: Dr. Segun Salinas * DATE OF PROCEDURE: 12/15/17 - ROOM #441 PROCEDURE: EGD. INDICATION: Melena. MEDICATIONS GIVEN: 25 mcg IV fentanyl, 7 mg IV Versed. DESCRIPTION OF PROCEDURE: After the EGD procedure, including the risks, benefits, and alternative, not limited to perforation, surgery, and/or were explained to Mr. Reilly, written consent was then obtained. IV medication was given and a bite-block was placed between the teeth. An Olympus gastroscope was then inserted into the patient's mouth, advanced down the esophagus, into the stomach, into the distal duodenum. In the esophagus, at the GE junction, he did have a 3-cm segment of Gold's mucosa; 3 biopsies were taken. The scope was advanced through a small hiatal hernia into the body of the stomach. Retroflex and forward views were unremarkable except for in the antrum, there were 2 small ulceration, nonbleeding; biopsy was obtained for H. pylori. The scope was advanced to widely patent pylorus into the duodenal bulb, into the distal duodenum, both of which were unremarkable. The scope was withdrawn from the patient. He tolerated the procedure well. He was returned to his hospital room in stable condition. IMPRESSION: 1. Complete upper endoscopy into the distal duodenum with biopsies. 2. Gold's mucosa, status post biopsy. 3. Gastric ulcers, nonbleeding, status post biopsy. 4. Likely the ulcers were related to his non-steroidal he needs it for his cardiovascular disease. I will start him on omeprazole. He should be on it for the rest of his life or at least as long as he is on aspirin. We will follow up with the biopsies. [id number]/[facility] #: [id number] [facility]
--- NOTE | 2017-12-16 15:28 | PN ---
Subjective Date of Service: 12/16/17 Interval History: Denies chest pain at this time. Denies shortness of breath or abd pain. Denies N/V/D. Family History: Unchanged from Admission Social History: Unchanged from Admission Past Medical History: Unchanged from Admission Objective Active Medications: Omeprazole (Prilosec Cap*) 40 mg PO DAILY SILVERIO Last Admin: 12/16/17 10:19 Dose: 40 mg Vital Signs - 8 hr 12/16/17 12/16/17 12/16/17 07:53 08:00 08:06 Temperature 97.9 F Pulse Rate 68 Respiratory 16 16 16 Rate Blood Pressure 118/56 (mmHg) O2 Sat by Pulse 100 Oximetry Oxygen Devices in Use Now: None Appearance: awake, alert, resting in bed. appears comfortable. Eyes: No Scleral Icterus Ears/Nose/Mouth/Throat: Clear Oropharnyx, Mucous Membranes Moist Neck: NL Appearance and Movements; NL JVP, Trachea Midline Respiratory: Symmetrical Chest Expansion and Respiratory Effort, Clear to Auscultation Cardiovascular: NL Sounds; No Murmurs; No JVD, No Edema Abdominal: NL Sounds; No Tenderness; No Distention Extremities: No Edema, No Clubbing, Cyanosis Skin: No Rash or Ulcers Neurological: Alert and Oriented x 3, NL Sensation, NL Gait, NL Muscle Strength and Tone Nutrition: Taking PO's Result Diagrams: 12/16/17 05:54 12/15/17 08:06 Additional Lab and Data: Microbiology and Other Data: Microbiology 12/15/17 14:05 CLOtest - Final Gastric Antrum Assess/Plan/Problems-Billing Assessment: Mr. Reilly is a 77 yo male with PMH significant for bilateral carotid artery stenosis with a right side occlusion who presented to the emergency room with complaints of shortness of breath, chest discomfort, and melena. - Patient Problems (1) Chest pain Current Visit: Yes Status: Acute Code(s): R07.9 - CHEST PAIN, UNSPECIFIED SNOMED Code(s): 60229085 Comment: - Denies CP and SOB at this time, but he has not been ambulating yet today - Troponins 0.00, 0.01, 0.01, 0.00 - nuclear stress test completed- low risk - lipid panel completed - HgA1C 5.2 (2) DVT prophylaxis Current Visit: Yes Status: Acute Code(s): KNA6194 - SNOMED Code(s): 335025508 Comment: - SCDs, chemical DVT prophylaxis contraindicated in getting of GI bleed (3) Full code status Current Visit: Yes Status: Acute Code(s): Z78.9 - OTHER SPECIFIED HEALTH STATUS SNOMED Code(s): 421059469 (4) GI bleed Current Visit: Yes Status: Acute Code(s): K92.2 - GASTROINTESTINAL HEMORRHAGE, UNSPECIFIED SNOMED Code(s): 16576705 Comment: - S/P EGD with Dr. Fisher - Suspect secondary to ulcers - Start omeprazole, will continue omeprazole at home (5) Carotid artery disease Current Visit: No Status: Chronic Code(s): I77.9 - DISORDER OF ARTERIES AND ARTERIOLES, UNSPECIFIED SNOMED Code(s): 814721486 Comment: - With right occlusion - Resume ASA when ok with GI Status and Disposition: OBV to Inpatient. Discharge to home when medically stable, will discharge today
[2017-12-16 17:11] VITALS: BP 133/72
--- NOTE | 2017-12-17 08:15 | DS ---
DISCHARGE SUMMARY: DATE OF ADMISSION: 12/14/17 DATE OF DISCHARGE: 12/16/17 ATTENDING PROVIDER: Dr. Miles Harris * (DICTATED BY JAIRON HOLLEY NP) He had upper endoscopy procedure done which showed Gold's mucosa status post biopsy, gastric ulcers nonbleeding status post biopsy, likely the ulcers are related to nonsteroidal. If he needs this for cardiovascular disease, I will start him on omeprazole. He should remain on omeprazole for as long as he is on aspirin. This is Dr. Fisher's recommendation. DISCHARGE MEDICATIONS: 1. Omeprazole 40 mg p.o. daily. Continued home medications: 1. Aspirin 325 mg p.o. daily. 2. Tylenol 1000 mg p.o. daily as needed. HISTORY OF PRESENT ILLNESS AND HOSPITAL COURSE: Mr. Reilly is a 77-year-old male who presented to the emergency room after presenting to the urgent care with shortness of breath and chest pain. He states that for the last 3 to 4 months he has been short of breath and that has been worsening over the past week. He reports intermittently having chest pain on and off for the last week with ambulation and improves with rest. He also reports feeling woozy and dizzy , especially when bending down and standing up. He reports chills and hot flashes. He reports melena for 1 week. He denies any nausea, vomiting, diarrhea , or abdominal pain. Denies any urinary symptoms or dysuria or hematuria. He describes the pain in his chest as heaviness and then if he is doing activities such as shoveling, he describes it as an ache on the left side of his chest. Due to his symptoms, he was admitted to the hospital for further evaluation. During his hospitalization, he had an upper endoscopy done by Dr. Fisher which showed 2 small gastric ulcers in Gold's mucosa. He was started on omeprazole 40 mg p.o. daily and is to continue this for as long as he is on aspirin. He had a nuclear stress test done which was indicated low risk for coronary artery disease. At this time, Mr. Reilly is stable for discharge home today. Vital signs are as follows: Temperature was 97.9, heart rate was 58, respirations 16, O2 saturation 100% on room air, and blood pressure is 118/56. DISCHARGE PLAN: Mr. Reilly will be discharged back home today. ACTIVITY: As tolerated. DIET: He should continue on a heart-healthy diet. In regards to his gastric ulcers, he will be placed on omeprazole 40 mg p.o. daily. FOLLOWUP: 1. He is to follow up with Dr. Fisher. 2. He should follow up with a primary care provider, he has chosen Dr. Charlene Brown as his primary care provider. We will make his appointment after 4 to 7 days. He should have a repeat CBC and BMP repeated in 7 days. The patient was advised to return to the emergency room for any chest pain or shortness of breath. He was also advised to return to the emergency room for any black tarry bright red blood in his stools. The patient and daughter verbalized understanding. This is a summary of his medical hospital stay. For further details, please see the entire medical record. TIME SPENT: Time spent on this discharge was approximately 45 minutes, greater than half that time was spent with the patient and daughter discussing his discharge plans and instructions. CONDITION ON DISCHARGE: Stable. JAIRON HOLLEY, TULIO [id number]/[facility] #: [id number] JHONATHAN
== END 2017-12-16 17:04 | disposition home or self-care (01) | DRG 384 ==
LOC: ED 13:17 → OBSVTOIN 16:58 → MEDTELE 16:58
PROVIDERS: ADMIT Hospitalist; ATTEND Internal Medicine
PROC: 0DB48ZX Excision of Esophagogastric Junction, Via Natural or Artificial Opening Endoscopic, Diagnostic (ICD-10-PCS; principal; 2017-12-15)
PROC: 0DB68ZX Excision of Stomach, Via Natural or Artificial Opening Endoscopic, Diagnostic (ICD-10-PCS; 2017-12-15)
DX: K25.9 Gastric ulcer, unspecified as acute or chronic, without hemorrhage or perforation (principal); N17.9 Acute kidney failure, unspecified; K92.1 Melena; I45.10 Unspecified right bundle-branch block; K22.10 Ulcer of esophagus without bleeding; K44.9 Diaphragmatic hernia without obstruction or gangrene; R07.9 Chest pain, unspecified; I65.21 Occlusion and stenosis of right carotid artery; Z83.3 Family history of diabetes mellitus; Z79.82 Long term (current) use of aspirin; Z87.891 Personal history of nicotine dependence; Z79.1 Long term (current) use of non-steroidal anti-inflammatories (NSAID); Z80.9 Family history of malignant neoplasm, unspecified
CPT/HCPCS: 36415; 71046; 78452; 80048; 80053; 80061; 81003; 82272; 82550; 82553; 83036; 83735; 83880; 84443; 84484; 85014; 85018; 85025; 85730; 86850; 86900; 86901; 87077; 88305; 93005; 93017; 99156; 99157; 99212; A9270-GY; A9502; G0463; J0280; J2250; J2785; J3010

== ENCOUNTER 2018-01-19 19:58 | Observation (INO) | payer MEDICARE, OTHER ==
[2018-01-19] MEDS ORDERED: Acetaminophen TAB* 325 MG PO ONE (20:11)
[2018-01-19 20:56] LABS: ABS Basophils 0 10^3/ul (0-0.2); ABS Eosinophils 0 10^3/ul (0-0.6); ABS Lymphocytes 0.7 10^3/ul (1.0-4.8); ABS Monocytes 0.6 10^3/ul (0-0.8); ABS Neutrophils 8.3 10^3/ul (1.5-7.7); ABS Nucleated RBC 0 10^3/ul; Eosinophil % 0.1 % (0-6); Hematocrit 33 % (42-52); Hemoglobin 11.3 g/dl (14.0-18.0); Lymphocyte % 6.9 % (25-47); Mean Corpuscular HGB Conc 34 g/dl (31-36); Mean Corpuscular Hemoglobin 29 pg (27-31); Mean Corpuscular Volume 85 fL (80-94); Mean Platelet Volume 6 um3 (7.4-10.4); Nucleated Red Blood Cells % 0; Platelet Count 195 10^3/ul (150-450); Red Blood Count 3.92 10^6/ul (4.0-5.4); Red Cell Distribution Width 15 % (10.5-15); White Blood Count 9.6 10^3/ul (3.5-10.8)
[2018-01-19] MEDS ORDERED: NS 0.9% 1000 ML* 2,000 ML IV ONE (21:00)
[2018-01-19] MEDS ORDERED: Vancomycin(*) 1,000 MG in NS 0.9% 250 ML* 250 ML IVPB ONE (21:01)
[2018-01-19] MEDS ORDERED: Piperacillin/Tazobac ADVAN(*) 3.375 GM in NS 0.9% 100 ML* 100 ML IVPB ONE (21:02)
[2018-01-19 21:06] LABS: INR 1.01 (0.77-1.02)
[2018-01-19 21:17] LABS: EGFR Non-African American 51.7 (>60)
--- NOTE | 2018-01-19 22:06 | RAD ---
Indication: Dizziness this afternoon. Post tooth extraction. Comparison: December 14, 2017 Technique: Upright AP 0 hours Report: Clear lungs and pleural spaces. Negative for pneumothorax. The heart, pulmonary vasculature, and mediastinal contours are unremarkable. IMPRESSION: No evidence for acute intrathoracic disease.
[2018-01-19 22:32] LABS: Urine Appearance Clear; Urine Blood Negative (Negative); Urine Color Yellow; Urine Ketones 1+ (Negative); Urine Protein 1+(30 mg/dL) (Negative); Urine Specific Gravity 1.024 (1.010-1.030); Urine Urobilinogen Negative (Negative)
--- NOTE | 2018-01-20 00:18 | ED ---
Trevor Howe Tiffany, scribed for Zach Lilly MD on 01/19/18 at 2104 . Dizziness - HPI Summary HPI Summary: The patient is a 77 y/o M BIBA c/o of dizziness since this afternoon. Symptoms aggravated by sitting upright. Symptoms alleviated by nothing. Denies LOC, chest pain, shortness of breath. Reports one bowel movement this morning, black stool. Patient takes 140 mg iron tablet. Had two teeth extracted this afternoon - History Of Current Complaint Chief Complaint: EDDizziness Stated Complaint: NEAR SYNCOPE Time Seen by Provider: 01/19/18 20:52 Hx Obtained From: Patient Timing: Constant Aggravating Factor(s): Other - Sitting upright Alleviating Factor(s): Nothing Associated Signs And Symptoms: Positive: Negative - LOC, chest pain, shortness of breath, Other: - One bowel movement this morning, black stool. Had two teeth extracted this afternoon. - Allergies/Home Medications Allergies/Adverse Reactions: Allergies Allergy/AdvReac Type Severity Reaction Status Date / Time "PAIN PILL" AdvReac Intermediate GI Upset Uncoded 01/16/16 15:44 PMH/Surg Hx/FS Hx/Imm Hx Previously Healthy: No Endocrine/Hematology History: Denies: Hx Diabetes Cardiovascular History: Reports: Hx Angina, Hx Coronary Artery Disease, Other Cardiovascular Problems/Disorders - BI LAT CARROTID NARROWING, SURG, (LEFT OCCLUDED) RX BABY ASPRIN Denies: Hx Hypercholesterolemia, Hx Hypertension, Hx Myocardial Infarction, Hx Valvular Heart Disease Respiratory History: Denies: Hx Asthma, Hx Chronic Obstructive Pulmonary Disease (COPD) GI History: Reports: Hx Ulcer Sensory History: Denies: Hx Contacts or Glasses, Hx Hearing Aid Opthamlomology History: Denies: Hx Contacts or Glasses Neurological History: Reports: Other Neuro Impairments/Disorders - numbness in hands while sleeping - Surgical History Surgery Procedure, Year, and Place: carotid artery left; torn rotator cuff right - Immunization History Date of Influenza Vaccine: 10/10 Infectious Disease History: No Infectious Disease History: Denies: Hx Clostridium Difficile, Hx Hepatitis, Hx Human Immunodeficiency Virus (HIV), Hx of Known/Suspected MRSA, Hx Shingles, Hx Tuberculosis, Hx Known/ Suspected VRE, Hx Known/Suspected VRSA, History Other Infectious Disease, Traveled Outside the [place] in Last 30 Days - Family History Known Family History: Positive: Cardiac Disease - [place], Diabetes - Social History Alcohol Use: Daily Alcohol Amount: 2 beers daily Hx Substance Use: No Substance Use Type: Reports: None Hx Tobacco Use: No Smoking Status (MU): Former Smoker Have You Smoked in the Last Year: No Review of Systems Positive: Other - Had two teeth extracted this afternoon Negative: Chest Pain Negative: Shortness Of Breath Positive: Other - One bowel movement, black stool Neurological: Negative - LOC, Other - Dizziness All Other Systems Reviewed And Are Negative: Yes Physical Exam - Summary Physical Exam Summary: VITAL SIGNS: Reviewed. GENERAL: Patient is a well-developed and nourished male who is lying comfortable in the stretcher. Patient is not in any acute respiratory distress. He is somewhat pale. HEAD AND FACE: No signs of trauma. No ecchymosis, hematomas or skull depressions. No sinus tenderness. EYES: PERRLA, EOMI x 2, No injected conjunctiva, no nystagmus. EARS: Hearing grossly intact. Ear canals and tympanic membranes are within normal limits. MOUTH: Two upper incisors were extracted, no active bleeding, no clotting NECK: Supple, trachea is midline, no adenopathy, no JVD, no carotid bruit, no c- spine tenderness, neck with full ROM. CHEST: Symmetric, no tenderness at palpation LUNGS: Clear to auscultation bilaterally. No wheezing or crackles. CVS: Regular rate and rhythm, S1 and S2 present, no murmurs or gallops appreciated. ABDOMEN: distended with hyperactive bowel sounds RECTAL EXAM: there is an external hemorrhoid, no bleeding, very small amount of stool that is black in color, patient is taking iron pills EXTREMITIES: FROM in all major joints, no edema, no cyanosis or clubbing. NEURO: Alert and oriented x 3. No acute neurological deficits. Speech is normal and follows commands. SKIN: Dry and warm Triage Information Reviewed: Yes Vital Signs On Initial Exam: Initial Vitals Temp Pulse Resp BP Pulse Ox 103.3 F 100 20 146/74 100 01/19/18 19:59 01/19/18 19:59 01/19/18 19:59 01/19/18 19:59 01/19/18 19:59 Vital Signs Reviewed: Yes Diagnostics - Vital Signs Vital Signs Temp Pulse Resp BP Pulse Ox 01/19/18 20:30 105 22 144/69 98 01/19/18 20:21 97 20 98 01/19/18 20:20 144/64 01/19/18 19:59 103.3 F 100 20 146/74 100 - Laboratory Result Diagrams: 01/19/18 20:35 01/19/18 20:35 Lab Statement: Any lab studies that have been ordered have been reviewed, and results considered in the medical decision making process. - Radiology CXR Radiology Interpretation Completed By: Radiologist - No evidence for acute intrathoracic disease. ED physician has reviewed this radiology report. - EKG 21:06 Cardiac Rate: NL - 86 BPM EKG Rhythm: Sinus Rhythm EKG Interpretation: Normal axis. Normal interval. No ischemic changes. Dizzy Course/Dx - Course Assessment/Plan: The patient is a 77 y/o M BIBA c/o of dizziness since this afternoon. Symptoms aggravated by sitting upright. Denies LOC, chest pain, shortness of breath. Reports one bowel movement this morning, black stool. Patient takes 140 mg iron tablet. Had two teeth extracted this afternoon. EKG and CXR reveal no acute findings. Temperature of 103.3, troponin of 0.01. UA was done. In the ED course pt received Tylenol, Vancomycin, fluids and Zosyn. Discussed care of pt with Dr. Saucedo who accepts pt for admission. Pt will be admitted with Dx of fever, orthostatic hypotension, and dizziness. He understands. Allergy and elevated BP noted. - Diagnoses Provider Diagnoses: Fever, Orthostatic hypotension, Dizziness - Provider Notifications Discussed Care Of Patient With: Charan Saucedo Time Discussed With Above Provider: 23:00 Instructed by Provider To: Other - Accepts pt for admission Discharge - Discharge Plan Condition: Stable Disposition: ADMITTED TO [facility] Referrals: Segun Salinas MD [Primary Care Provider] - The documentation as recorded by the Trevor maloney Tiffany accurately reflects the service I personally performed and the decisions made by , Zach Lilly MD.
[2018-01-20] MEDS ORDERED: Albuterol 2.5 MG/3 ML NEB.SOL* (0.083%) INH PRN (01:06)
[2018-01-20] MEDS ORDERED: Ondansetron INJ* 2 MG/ML VIAL IV PRN (01:06)
[2018-01-20] MEDS ORDERED: Acetaminophen TAB* 325 MG PO PRN (01:06)
[2018-01-20] MEDS ORDERED: CMCS: Melatonin (NF) 3 MG TAB PO PRN (01:06)
[2018-01-20] MEDS ORDERED: NS 0.9% 1000 ML* 1,000 ML IV SCH (01:15)
--- NOTE | 2018-01-20 01:21 | HP ---
H&P (Free Text) History and Physical: PCP: none Date/Time: 01/20/2018 0045 CC: fever, light-headedness "woozy" HPI: Mr Reilly is a 77YO male whose presented to [facility] ED the evening of 01/19 and passed of an AMI. Condolences were given. 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 He was brought in via EMS after his 's passing with report of evening chills for the past week which progressed to F/C this evening. Temperature upon arrival was 39.6C. Understandably, his ability to give a history is currently impaired 2nd grief. He also reports frequent episodes of light-headed "wooziness" when exerting himself or going from sitting to standing. This has been ongoing since before his November admission for an upper GI bleed. He states this reminds him of how he felt before his L cartotid endarterectomy. He denies chest pain, SOB, cough, congestion, earache, sore throat, change in bowel/bladder, rash, open wound, B/U/F of urine, abdominal pain, or other issues. He has not had an influenza vaccine this season, but screen is negative. ED evaluation is essentially unenlightening. Of note, but not thought to be related, he had 2 teeth extracted earlier today. PMedHx PAOD w/ R carotid occlusion & s/p L carotid endarterectomy ~5 years ago : last carotid US 07/13/17 showed L carotid widely patent PUD, felt to be NSAID related Gold's esophagus Ambulatory Orders Nursing to reconcile. Acetaminophen TAB* [Tylenol TAB*] 1,000 mg PO DAILY 01/13/16 Aspirin TAB* [Aspirin 325 MG TAB*] 325 mg PO DAILY 01/16/16 Omeprazole CAP* [Prilosec CAP* 20 MG] 40 mg PO DAILY #60 cap. 12/16/17 Allergies "PAIN PILL" Adverse Reaction (Intermediate, Uncoded 01/16/16 15:44) GI Upset PSurgHx L carotid endarterectomy R rotator cuff repair SocHx: quit smoking ~14years ago, ~2 beers daily, no recreational drugs; as above, local supportive family; full code status FamHx: Mother passed at 101 of "being 101". Father passed at 58 2nd "blood clot to the heart" (? likely [place] vs PE). Sister has DM2 and an unknown type of cancer. ROS: as above, otherwise reviewed and all were negative vitals: Vital Signs Temp 37.2 C 01/20/18 00:21 Pulse 80 01/20/18 00:21 Resp 16 01/20/18 00:21 BP 108/54 01/20/18 00:21 Pulse Ox 97 01/20/18 00:21 Intake & Output 01/19/18 01/19/18 01/20/18 11:59 23:59 11:59 Intake Total 2350 Balance 2350 Weight 97.522 kg Intake: IV Fluids 2350 Constitutional: NAD, normally developed, obese white male HEENM: atraumatic; sclera/conjunctiva: anicteric/clear; hearing: clinically mildly decreased; oropharynx: clear, mucosa moist, small amount of dried blood on lips from teeth extraction, extraction sites appear as expected w/o s/s infection Neck: soft tissue: no nuchal rigidity; thyroid: normal Pulmonary: clear to auscultation bilaterally, good aeration, no accessory muscle use CV: RR/RR, normal S1S2, no carotid bruit, no jugular venous distention, 2+ B DP/ PT, no edema Abdominal: soft, non-distended, non-tender, no rebound/guarding/rigidity, normoactive bowel sounds, no hepatosplenomegaly or masses, no costovertebral angle tenderness Musculoskeletal: general: grossly intact w/o tenderness to palpation Integumental: normal appearance and texture of exposed skin Psychiatric orientation: AA&O to PPS affect: stoic/disbelief mood: cooperative eye contact: fair content: reliable responses: timely, often tangential insight: fair Testing: Lab Results 01/19/18 01/19/18 01/19/18 Range/Units 20:35 20:35 20:35 WBC 9.6 (3.5-10.8) 10^3/ul RBC 3.92 L (4.0-5.4) 10^6/ul Hgb 11.3 L (14.0-18.0) g/dl Hct 33 L (42-52) % MCV 85 (80-94) fL MCH 29 (27-31) pg MCHC 34 (31-36) g/dl RDW 15 (10.5-15) % Plt Count 195 (150-450) 10^3/ul MPV 6 L (7.4-10.4) um3 Neut % (Auto) 86.3 H (38-83) % Lymph % (Auto) 6.9 L (25-47) % Hart % (Auto) 6.6 (0-7) % Eos % (Auto) 0.1 (0-6) % Baso % (Auto) 0.1 (0-2) % Absolute Neuts (auto) 8.3 H (1.5-7.7) 10^3/ul Absolute Lymphs (auto) 0.7 L (1.0-4.8) 10^3/ul Absolute Monos (auto) 0.6 (0-0.8) 10^3/ul Absolute Eos (auto) 0 (0-0.6) 10^3/ul Absolute Basos (auto) 0 (0-0.2) 10^3/ul Absolute Nucleated RBC 0 10^3/ul Nucleated RBC % 0 INR (Anticoag Therapy) 1.01 (0.77-1.02) APTT 25.0 L (26.0-36.3) seconds Sodium 132 L (133-145) mmol/L Potassium 3.6 (3.5-5.0) mmol/L Chloride 101 (101-111) mmol/L Carbon Dioxide 21 L (22-32) mmol/L Anion Gap 10 (2-11) mmol/L BUN 17 (6-24) mg/dL Creatinine 1.34 H (0.67-1.17) mg/dL Est GFR ( Amer) 66.5 (>60) Est GFR (Non-Af Amer) 51.7 (>60) BUN/Creatinine Ratio 12.7 (8-20) Glucose 101 H (70-100) mg/dL Lactic Acid (0.5-2.0) mmol/L Calcium 9.5 (8.6-10.3) mg/dL Total Bilirubin 0.90 (0.2-1.0) mg/dL AST 20 (13-39) U/L ALT 13 (7-52) U/L Alkaline Phosphatase 39 (34-104) U/L Troponin I 0.01 (<0.04) ng/mL Total Protein 7.5 (6.4-8.9) g/dL Albumin 3.9 (3.2-5.2) g/dL Globulin 3.6 (2-4) g/dL Albumin/Globulin Ratio 1.1 (1-3) Urine Color Urine Appearance Urine pH (5-9) Ur Specific [place] (1.010-1.030) Urine Protein (Negative) Urine Ketones (Negative) Urine Blood (Negative) Urine Nitrate (Negative) Urine Bilirubin (Negative) Urine Urobilinogen (Negative) Ur Leukocyte Esterase (Negative) Urine WBC (Auto) (Absent) Urine RBC (Auto) (Absent) Ur Squamous Epith Cells (Absent) Urine Bacteria (Absent) Hyaline Casts (Absent) Urine Glucose (Negative) Influenza A (Rapid) (Negative) Influenza B (Rapid) (Negative) 01/19/18 01/19/18 01/19/18 Range/Units 20:35 21:28 22:00 WBC (3.5-10.8) 10^3/ul RBC (4.0-5.4) 10^6/ul Hgb (14.0-18.0) g/dl Hct (42-52) % MCV (80-94) fL MCH (27-31) pg MCHC (31-36) g/dl RDW (10.5-15) % Plt Count (150-450) 10^3/ul MPV (7.4-10.4) um3 Neut % (Auto) (38-83) % Lymph % (Auto) (25-47) % Hart % (Auto) (0-7) % Eos % (Auto) (0-6) % Baso % (Auto) (0-2) % Absolute Neuts (auto) (1.5-7.7) 10^3/ul Absolute Lymphs (auto) (1.0-4.8) 10^3/ul Absolute Monos (auto) (0-0.8) 10^3/ul Absolute Eos (auto) (0-0.6) 10^3/ul Absolute Basos (auto) (0-0.2) 10^3/ul Absolute Nucleated RBC 10^3/ul Nucleated RBC % INR (Anticoag Therapy) (0.77-1.02) APTT (26.0-36.3) seconds Sodium (133-145) mmol/L Potassium (3.5-5.0) mmol/L Chloride (101-111) mmol/L Carbon Dioxide (22-32) mmol/L Anion Gap (2-11) mmol/L BUN (6-24) mg/dL Creatinine (0.67-1.17) mg/dL Est GFR ( Amer) (>60) Est GFR (Non-Af Amer) (>60) BUN/Creatinine Ratio (8-20) Glucose (70-100) mg/dL Lactic Acid 1.3 (0.5-2.0) mmol/L Calcium (8.6-10.3) mg/dL Total Bilirubin (0.2-1.0) mg/dL AST (13-39) U/L ALT (7-52) U/L Alkaline Phosphatase (34-104) U/L Troponin I (<0.04) ng/mL Total Protein (6.4-8.9) g/dL Albumin (3.2-5.2) g/dL Globulin (2-4) g/dL Albumin/Globulin Ratio (1-3) Urine Color Yellow Urine Appearance Clear Urine pH 8.0 (5-9) Ur Specific [place] 1.024 (1.010-1.030) Urine Protein 1+(30 mg/dl) H (Negative) Urine Ketones 1+ H (Negative) Urine Blood Negative (Negative) Urine Nitrate Negative (Negative) Urine Bilirubin Negative (Negative) Urine Urobilinogen Negative (Negative) Ur Leukocyte Esterase Negative (Negative) Urine WBC (Auto) Trace(0-5/hpf) (Absent) Urine RBC (Auto) Trace(0-2/hpf) (Absent) Ur Squamous Epith Cells Present H (Absent) Urine Bacteria Absent (Absent) Hyaline Casts Present H (Absent) Urine Glucose Negative (Negative) Influenza A (Rapid) Negative (Negative) Influenza B (Rapid) Negative (Negative) ECG, personally reviewed: NSR rate 86, no ischemia CXR, personally reviewed: IMPRESSION: No evidence for acute intrathoracic disease. Impression: 77M HX PAOD w/ R cartotid occlusion & s/p L carotid entarterectomy, recent upper GI bleed who presents with fever of unknown origin and episodic orthostatic-type light-headedness DIAGNOSIS & PLAN Primary fever of unknown origin : suspect viral etiology : blood, sputum, & urine CXs : rapid influenza negative : given vancomycin & piperacillin/tazobactam in ED, will hold further ABX awaiting CX guidance : trend WBCs & temperature curves : IVFs : supportive care pre-syncopal symptoms : suspect this is transient cerebral hypoperfusion related to his R carotid occlusion : check orthostatic vitals : check ECHO in AM to r/o valvular disease : last carotid US 06/2017 showed L carotid to be widely patent Secondary PAOD w/ R carotid occlusion & s/p L carotid endarterectomy : consider starting low dose statin at discharge PUD/Barratt's esophagus : continue omeprazole : continue outpatient surveillance Admission Rational: observation for pre-syncope & fever of unknown origin DVTp: SCDs, no anticoagulation given recent upper GI hemorrhage Code Status: full HCP: children
[2018-01-20] MEDS ORDERED: Omeprazole CAP* 20 MG PO SCH ×2 (06:00→09:00)
[2018-01-20 06:26] LABS: ABS Basophils 0 10^3/ul (0-0.2); ABS Eosinophils 0 10^3/ul (0-0.6); ABS Lymphocytes 1.1 10^3/ul (1.0-4.8); ABS Monocytes 0.6 10^3/ul (0-0.8); ABS Neutrophils 7.9 10^3/ul (1.5-7.7); ABS Nucleated RBC 0 10^3/ul; Eosinophil % 0.2 % (0-6); Hematocrit 31 % (42-52); Hemoglobin 10.5 g/dl (14.0-18.0); Lymphocyte % 11.5 % (25-47); Mean Corpuscular HGB Conc 34 g/dl (31-36); Mean Corpuscular Hemoglobin 30 pg (27-31); Mean Corpuscular Volume 88 fL (80-94); Mean Platelet Volume 7 um3 (7.4-10.4); Nucleated Red Blood Cells % 0.1; Platelet Count 180 10^3/ul (150-450); Red Blood Count 3.56 10^6/ul (4.0-5.4); Red Cell Distribution Width 16 % (10.5-15); White Blood Count 9.7 10^3/ul (3.5-10.8)
[2018-01-20 06:57] LABS: EGFR Non-African American 50.4 (>60)
[2018-01-20] MEDS ORDERED: Aspirin TAB* 325 MG PO SCH (09:00)
[2018-01-20] MEDS ORDERED: Docusate CAP* 100 MG PO SCH (09:00)
--- NOTE | 2018-01-20 09:19 | ECHO ---
Patient: CHRISTOPHER BARTON [facility] Rec#: [id number] : 1940 Date: 01/20/2018 Age: 77y Height: 180.34 cm / 71.0 in Weight: 97.52 kg / 214.9 lbs Sex: M BSA: 2.17 Room#: 434 Admit Date#: 01/20/2018 Type: Inpatient Referring: Charan Saucedo MD Reading: Eduard Sanches MD Lumber Grader: Oralia Mauricio RD,RDMS Transthoracic Echocardiogram Indication: Syncope BP: 108/54 HR: 82 Rhythm: NSR Findings History: Peripheral arterial disease, carotid endarterectomy, TIA Technical Comments: The study quality is fair. The study is technically limited due to poor parasternal windows. Left Ventricle: The left ventricular chamber size is normal. Mild concentric left ventricular hypertrophy is observed. Global left ventricular wall motion and contractility are within normal limits. There is normal left ventricular systolic function. The estimated ejection fraction is 55-60%. Abnormal left ventricular diastolic filling is observed, consistent with impaired relaxation. Left Atrium: The left atrium is mildly dilated. Right Ventricle: The right ventricular chamber size and systolic function are within normal limits. Right Atrium: The right atrium is mildly dilated. Aortic Valve: The aortic valve leaflets are severely thickened with reduced systolic excursion. There is no evidence of aortic regurgitation. There is moderate to severe aortic stenosis.The dimensionless index is .27-.3 suggesting moderate to severe aortic stenosis. The mean gradient of the aortic valve is 20 mmHg. The aortic valve area, by peak velocities, is calculated at 0.9 cm2. Mitral Valve: There is mitral annular calcification. The mitral valve leaflets are mildly thickened. There is a trace of mitral regurgitation. There is borderline mitral stenosis. Tricuspid Valve: The tricuspid valve leaflets are normal. There is trace tricuspid regurgitation. No pulmonary hypertension is noted. Pulmonic Valve: The pulmonic valve appears normal. There is a trace pulmonic regurgitation. Pericardium: There is no significant pericardial effusion. Aorta: The aortic root appears normal. There is no dilatation of the aortic arch. Pulmonary Artery: The main pulmonary artery appears normal. Venous: The inferior vena cava appears normal in size. There is a greater than 50% respiratory change in the inferior vena cava dimension. Conclusions The study quality is fair. The study is technically limited due to poor parasternal windows. Mild concentric left ventricular hypertrophy is observed. There is normal left ventricular systolic function. The estimated ejection fraction is 55-60%. Abnormal left ventricular diastolic filling is observed, consistent with impaired relaxation. The left atrium is mildly dilated. The aortic valve leaflets are severely thickened with reduced systolic excursion. There is moderate to severe aortic stenosis. The dimensionless index is .27-.3 suggesting moderate to severe aortic stenosis. There is a trace of mitral regurgitation. There is borderline mitral stenosis. There is trace tricuspid regurgitation. There is a trace pulmonic regurgitation. Compared to report of study from 01/25/2014 there has been significant progrssion of the aortic valvular disease(prior study revealed mild thickening and NO aortic stenosis). Measurements Name Value Normal Range RVIDd (AP) 2D 2.7 cm (0.9 - 2.6) RVDdMajor (2D) 3.9 cm (2.2 - 4.4) RAd ISD 4CH 5.8 cm (3.4 - 4.9) RA (A4C)W 3.9 cm (2.9 - 4.6) IVSd (2D) 1.2 cm (0.6 - 1) LVPWd (2D) 1.1 cm (0.6 - 1) LVIDd (2D) 4.9 cm (3.6 - 5.4) LVIDs (2D) 3.5 cm - LV FS (2D) 29 % (25 - 45) Aortic Annulus 2.4 cm (1.4 - 2.6) Ao root diameter (2D) 3.4 cm (2.1 - 3.5) Ascending Ao 2.9 cm (2.1 - 3.4) Aortic arch 3.2 cm (1.8 - 3.4) LA dimension (AP) 2D 4.3 cm (2.3 - 3.8) LAd ISD 4CH 6.9 cm (2.9 - 5.3) LA ISD 4CH W 4.1 cm (2.5 - 4.5) Name Value Normal Range LA ESV SP 4CH (A/L) 68.97 ml - LA ESV SP 2CH (A/L) 100.69 ml - LA ESV BP (A/L) 83.84 ml - LA ESV BP (A/L) index 39 ml/m2 - LA ESV SP 4CH (MOD) 65.76 ml - LA ESV SP 2CH (MOD) 96.64 ml - Name Value Normal Range MV E-wave Vmax 0.9 m/sec - MV deceleration time 200 msec - MV A-wave Vmax 1.2 m/sec - MV E:A ratio 0.8 ratio - LV septal e' Vmax 0.06 m/sec - LV lateral e' Vmax 0.05 m/sec - LV E:e' septal ratio 15 ratio - LV E:e' lateral ratio 18 ratio - Name Value Normal Range AV Vmax 3 m/sec - AV VTI 70 cm - AV peak gradient 36 mmHg - AV mean gradient 20 mmHg - LVOT diameter 2 cm - LVOT Vmax 0.9 m/sec - LVOT VTI 19 cm - LVOT peak gradient 3.2 mmHg - LVOT mean gradient 1.8 mmHg - DOI (VTI) 0.3 ratio - ANN (continuity Vmax) 0.9 cm2 - ANN (continuity VTI) 0.9 cm2 - DARCI Vmax 0.5 m/sec - Name Value Normal Range MV Vmax 1.3 m/sec - MV VTI 37 cm - MV peak gradient 7 mmHg - MV mean gradient 2.5 mmHg - MV PHT 83 msec - MVA (PHT) 2.7 cm2 - MVA (continuity VTI) 1.8 cm2 - Name Value Normal Range TR Vmax 2.3 m/sec - TR peak gradient 21 mmHg - RAP 3 mmHg - RVSP 24 mmHg - IVC diameter 2.1 cm - Name Value Normal Range PV Vmax 0.8 m/sec - PV peak gradient 2.6 mmHg -
[2018-01-20 09:33] VITALS: BP 135/67
--- NOTE | 2018-01-21 02:29 | DS ---
CC: Dr. Rm Brown; Dr. Stefan Grissom, Cardiology * DISCHARGE SUMMARY: DATE OF ADMISSION: 01/20/18 DATE OF DISCHARGE: 01/20/18 PRIMARY CARE PROVIDER: Rm Brown MD PRIMARY DIAGNOSES: 1. Fever and lightheadedness. 2. Severe aortic stenosis. SECONDARY DIAGNOSES: 1. Peptic ulcer disease. 2. Peripheral artery disease, status post left carotid endarterectomy. 3. Grief. MEDICATIONS ON DISCHARGE: Unchanged from admission, include: 1. Omeprazole 40 mg daily. 2. Aspirin 325 mg daily. 3. Acetaminophen 1000 mg daily. IMAGING PERFORMED DURING HOSPITAL STAY: Transthoracic echocardiogram, impression: Left ventricular systolic function with an LVEF of 55% to 60%. Abnormal left ventricular diastolic filling. Left atrium is mildly dilated. Aortic valve leaflets are severely thickened with a reduced systolic excursion, has moderate-to- severe aortic stenosis. The dimension index is 0.27 to 0.3. Mean gradient of the aortic valve is 20 and aortic valve area is 0.9 cm2. Left atrium is mildly dilated, trace MR, borderline MS, trace TR and trace pulmonary regurgitation. Compared to 2013, there has been significant progression of aortic valve disease. Prior study revealed mild thickening and no stenosis. PERTINENT LABS: Creatinine 1.37. White blood cell count is 9.7, hemoglobin 10.5. Troponin I 0.01. Negative influenza A and B. MICROBIOLOGY: Stool occult blood is negative. HISTORY OF PRESENT ILLNESS AND HOSPITAL COURSE: This is a 77-year-old man, past medical history as outlined in the history of present illness on the day of admission including peripheral artery disease with a right carotid occlusion and status post left carotid endarterectomy approximately 5 years prior. Last ultrasound in June of 2017 with left carotid artery widely patent. He had been feeling fatigued over the last week, was lying down on bed feeling woozy. His was ill, had EMS activated and upon EMS arrival, they assessed this patient and also activated EMS to bring him to the emergency room. The patient' s unfortunately in the emergency room. The patient while in the emergency room was noted to be woozy and had a temperature of 103.3 on presentation. He received antibiotics including vancomycin and Zosyn in the emergency with 1 dose, but none since then. He remained afebrile during the course of the rest of the hospital stay. His white count remained 9.7 without change. The patient felt well; however, noted to this author that over the last months with walking, he has been increasingly short of breath. The transthoracic echocardiogram was reviewed with the patient indicating moderate- to-severe aortic stenosis, which is new since 2013. It is certainly may be the etiology of the patient's new shortness of breath as well as wooziness; although in the setting of severe stress with his 's illness and then passing that may have contributed to the patient's lightheadedness. It is noted that the patient had two teeth extracted on the day of presentation. Possibly a viral illness contributing to the high fever. The patient will be discharged today with followup with Dr. Grissom for further assessment of the aortic valve. I discussed this with the patient. At followup, please; 1. Please follow up blood cultures until negative. We will not be discharging patient on antibiotics. 2. Please ensure the patient follows up with Cardiology. 3. No other specific labs or vitals that need followup. Reasons to return to the hospital including, but not limited to recurrent or worsening fevers, chest pains, worsening shortness of breath, nausea, vomiting, lightheadedness or loss of consciousness. This was discussed with the patient and he acknowledged understanding. TIME SPENT: Greater than 60 minutes were spent on discharge of this patient, greater than half was spent [id number] with the patient. [id number]/[facility] #: [id number] JHONATHAN
== END 2018-01-20 12:43 | disposition home or self-care (01) ==
LOC: ED 19:58 → MEDTELE 01-20 00:58
PROVIDERS: ADMIT Hospitalist; ATTEND Internal Medicine
DX: R50.9 Fever, unspecified (principal); R42 Dizziness and giddiness; I35.0 Nonrheumatic aortic (valve) stenosis; K27.9 Peptic ulcer, site unspecified, unspecified as acute or chronic, without hemorrhage or perforation; I73.9 Peripheral vascular disease, unspecified; I51.7 Cardiomegaly; R55 Syncope and collapse; I25.119 Atherosclerotic heart disease of native coronary artery with unspecified angina pectoris; F43.21 Adjustment disorder with depressed mood; Z79.899 Other long term (current) drug therapy; Z79.82 Long term (current) use of aspirin; Z87.891 Personal history of nicotine dependence
CPT/HCPCS: 36415; 71045; 80048; 80053; 81003; 81015; 82270; 83605; 84484; 85025; 85610; 85730; 87040; 87086; 87502; 93005; 93306; 94760; 96365; 96367; 99284; A9270-GY; G0378; J2543; J3370

== ENCOUNTER 2018-08-26 17:10 | Observation (INO) | payer MEDICARE, OTHER ==
--- NOTE | 2018-08-26 18:27 | ED ---
HPI Chest Pain - HPI Summary HPI Summary: The pt is a 78 y/o male presenting [place] [facility] [place]/o L chest pain since 3 days ago worse today. The pain rated 4/10 in severity is described as tightness. It is aggravated by activity such as unloading a truck and is alleviated by rest. He notes exertional dyspnea, night sweats but denies LOC, and pedal edema. He reports a hx of valve problems and had a stress test in December 2017. - History of Current Complaint Chief Complaint: EDChestWallPain Time Seen by Provider: 08/26/18 18:17 Hx Obtained From: Patient, Family/Product Marketing Specialist Onset/Duration: Started Days Ago - 3 days, Still Present Timing: Constant Current Severity: Mild Pain Intensity: 4 Pain Scale Used: 0-10 Numeric Chest Pain Location: Discrete at: - L side Character: Dyspnea at Exertion Aggravating Factor(s): Exertion Alleviating Factor(s): Rest - Mildly - Additional Pertinent History Primary Care Physician: VESNA - Allergy/Home Medications Allergies/Adverse Reactions: Allergies Allergy/AdvReac Type Severity Reaction Status Date / Time No Known Drug Allergies Allergy none Verified 08/27/18 01:04 Home Medications: Home Medications Atorvastatin Calcium [Lipitor] 40 mg PO BEDTIME 08/26/18 [History Confirmed 02/08] Ramipril [Altace] 2.5 mg PO BEDTIME 08/26/18 [History Confirmed 08/26/18] PMH/Surg Hx/FS Hx/Imm Hx Previously Healthy: No Endocrine/Hematology History: Denies: Hx Diabetes Cardiovascular History: Reports: Hx Angina, Hx Coronary Artery Disease, Other Cardiovascular Problems/Disorders - BI LAT CARROTID NARROWING, SURG, (LEFT OCCLUDED) RX BABY ASPRIN Denies: Hx Hypercholesterolemia, Hx Hypertension, Hx Myocardial Infarction, Hx Valvular Heart Disease Respiratory History: Denies: Hx Asthma, Hx Chronic Obstructive Pulmonary Disease (COPD) GI History: Reports: Hx Ulcer Sensory History: Denies: Hx Contacts or Glasses, Hx Hearing Aid Opthamlomology History: Denies: Hx Contacts or Glasses Neurological History: Reports: Other Neuro Impairments/Disorders - numbness in hands while sleeping - Cancer History Cancer Type, Location and Year: None reported - Surgical History Surgery Procedure, Year, and Place: carotid artery left; torn rotator cuff right - Immunization History Date of Influenza Vaccine: 10/10 Infectious Disease History: No Infectious Disease History: Denies: Hx Clostridium Difficile, Hx Hepatitis, Hx Human Immunodeficiency Virus (HIV), Hx of Known/Suspected MRSA, Hx Shingles, Hx Tuberculosis, Hx Known/ Suspected VRE, Hx Known/Suspected VRSA, History Other Infectious Disease, Traveled Outside the [place] in Last 30 Days - Family History Known Family History: Positive: Cardiac Disease - MS, Diabetes - Social History Occupation: Retired Lives: With Family Alcohol Use: Daily Alcohol Amount: 2 beers daily Hx Substance Use: No Substance Use Type: Reports: None Hx Tobacco Use: No Smoking Status (MU): Former Smoker Have You Smoked in the Last Year: No Review of Systems Positive: Other - Positive: Night sweats Positive: Chest Pain Positive: Other - Positive- Exertional dyspnea Negative: Edema Negative: Syncope All Other Systems Reviewed And Are Negative: Yes Physical Exam - Summary Physical Exam Summary: Appearance: Well-appearing, Well-nourished, lying in bed comfortable Skin: Warm, dry, no obvious rash Eyes: sclera anicteric, no conjunctival pallor ENT: mucous membranes moist Neck: deferred Respiratory: No signs of respiratory distress Cardiovascular: Pulses are nml; Soft systolic heart murmur Abdomen: deferred Musculoskeletal: Moving all 4 extremities without obvious discomfort Neurological: Awake and alert, mentation is normal, speech is fluent and appropriate Psychiatric: affect is normal, does not appear anxious or depressed Triage Information Reviewed: Yes Vital Signs On Initial Exam: Initial Vitals Temp Pulse Resp BP Pulse Ox 98.3 F 79 16 135/76 98 08/26/18 17:13 08/26/18 17:13 08/26/18 17:13 08/26/18 17:13 08/26/18 17:13 Vital Signs Reviewed: Yes Diagnostics - Vital Signs Vital Signs Temp Pulse Resp BP Pulse Ox 08/26/18 17:13 98.3 F 79 16 135/76 98 - Laboratory Result Diagrams: 08/27/18 06:37 08/27/18 06:37 Lab Statement: Any lab studies that have been ordered have been reviewed, and results considered in the medical decision making process. Chest Pain Course/Dx - Course Course Of Treatment: A 78 year-old M presents to the ED with a CC of L chest pain since 3 days ago worse today. The pain rated 4/10 in severity is described as tightness. It is aggravated by activity such as unloading a truck and is alleviated by rest. He notes exertional dyspnea, night sweats but denies LOC, and pedal edema. He reports a hx of valve problems and had a stress test in December 2017. A physical exam revealed soft systolic heart murmur. In the ED course, the pt was given Acetaminophen 650mg PO, ASA 81 mg PO, and 1 of 3 doses of NTG 0.4 mg SL which improved the symptoms. I discussed the care of the pt with Dr. Holly DO who agreed to admit the pt for further monitoring. The pt is agreeable with this plan. Allergies noted. - Diagnoses Provider Diagnoses: Chest pain - Provider Notifications Discussed Care Of Patient With: Glenna Barrera - Hopitalist Time Discussed With Above Provider: 21:46 Instructed by Provider To: Admit As Inpatient Discharge - Sign-Out/Discharge Documenting (check all that apply): Patient Departure - Admit - Discharge Plan Condition: Stable Disposition: ADMITTED TO [facility] - Billing Disposition and Condition Condition: STABLE Disposition: Admitted to [facility] - Attestation Statements Document Initiated by Scribe: Yes Documenting Scribe: Khadijah Larkin Provider For Whom Scribe is Documenting (Include Credential): Dr. Sachin Grayson MD Scribe Attestation: IKhadijah , scribed for Dr. Sachin Grayson MD on 08/27/18 at 1503. Scribe Documentation Reviewed: Yes Provider Attestation: The documentation as recorded by the scribeKhadijah accurately reflects the service I personally performed and the decisions made by me, Dr. Sachin Grayson MD
[2018-08-26] MEDS ORDERED: Nitroglycerin TAB 0.4 MG* 0.4 MG TAB SL PRN (18:41)
[2018-08-26] MEDS ORDERED: Aspirin 81 mg CHEW TAB* 81 MG TAB.CHEW PO ONE (18:41)
[2018-08-26] MEDS ORDERED: Nitroglycerin TAB 0.4 MG* 0.4 MG TAB ONE (18:52)
[2018-08-26] MEDS ORDERED: Acetaminophen TAB* 325 MG PO ONE (18:52)
[2018-08-26] MEDS ORDERED: Acetaminophen TAB* 325 MG ONE (18:53)
[2018-08-26 19:06] LABS: ABS Basophils 0 10^3/ul (0-0.2); ABS Eosinophils 0.1 10^3/ul (0-0.6); ABS Lymphocytes 1.2 10^3/ul (1.0-4.8); ABS Monocytes 0.5 10^3/ul (0-0.8); ABS Neutrophils 3.4 10^3/ul (1.5-7.7); ABS Nucleated RBC 0 10^3/ul; Eosinophil % 1.3 % (0-6); Hematocrit 40 % (42-52); Hemoglobin 13.1 g/dl (14.0-18.0); Lymphocyte % 23.2 % (25-47); Mean Corpuscular HGB Conc 33 g/dl (31-36); Mean Corpuscular Hemoglobin 29 pg (27-31); Mean Corpuscular Volume 88 fL (80-94); Mean Platelet Volume 6.7 um3 (7.4-10.4); Nucleated Red Blood Cells % 0.1; Platelet Count 136 10^3/ul (150-450); Red Blood Count 4.52 10^6/ul (4.00-5.40); Red Cell Distribution Width 17 % (10.5-15); White Blood Count 5.2 10^3/ul (3.5-10.8)
[2018-08-26 19:26] LABS: EGFR Non-African American 52.9 (>60)
[2018-08-26] MEDS ORDERED: Acetaminophen TAB* 325 MG PO PRN (22:35)
[2018-08-26] MEDS ORDERED: LORazepam TAB(*) 1 MG PO SCH (23:00)
--- NOTE | 2018-08-27 02:19 | HP ---
CC: Rm Brown MD * HISTORY AND PHYSICAL: DATE OF ADMISSION: 08/26/18 TIME OF EVALUATION: 10 p.m. PRIMARY CARE PROVIDER: Rm Brown MD ATTENDING PHYSICIAN WHILE IN THE HOSPITAL: Glenna Barrera MD * (report dictated by Carol Oscar NP) CHIEF COMPLAINT: Chest pain. HISTORY OF PRESENT ILLNESS: This is a 78-year-old male with a past medical history of bilateral carotid artery stenosis with right occlusion and left carotid endarterectomy. He also has high blood pressure and hyperlipidemia. He presented to the emergency room this evening after 2 days of left-sided chest pain. The patient states that the pain started yesterday while he was working. 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 This happened a couple of times yesterday. Went to bed last night and evening was uneventful. This morning went back to work, chest pain returned with activity and then around noon, chest pain returned and stayed. This time the pain also radiated into the left axilla area. The patient called his daughter and presented to the ED by private car. The patient reports that he felt more concerned as the pain did not go away with rest. In the emergency room, the patient had labs and imaging. He was also given nitro sublingual x1. The patient reports nitro resolved the pain. Before nitro , pain was 5/10, after nitro, it is now at 0/10. The patient was then referred to the hospitalist service for further evaluation. PAST MEDICAL HISTORY: 1. The patient has a history of bilateral carotid artery stenosis, right is totally occluded; left, he is status post endarterectomy. 2. The patient has hyperlipidemia. 3. The patient has history of a bleeding ulcer. 4. High blood pressure. 5. Rotator cuff injury. PAST SURGICAL HISTORY: The patient is status post left carotid endarterectomy. He is also status post right rotator cuff repair. MEDICATIONS: The patient is on: 1. Aspirin 325 mg by mouth daily. 2. Tylenol 1000 mg as needed. 3. Atorvastatin 40 mg by mouth daily. 4. Omeprazole 40 mg by mouth daily. 5. Iron 150. 6. Ramipril 2.5 mg daily. ALLERGIES: The patient has no known drug allergies. FAMILY HISTORY: The patient reports his father passed at age 58 from a blood clot. No other reported family history. SOCIAL HISTORY: The patient lives with his daughter and granddaughter. He is independent with his ADLs. He is recently, lost his suddenly in December 2017. Reports he is a former smoker, quit 14 years ago. Reports occasional drinking 2 to 3 beers most nights of the week. 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 REVIEW OF SYSTEMS: The patient denies headache, dizziness or lightheadedness. Denies ear, nose, throat pain. Denies shortness of breath, cough, wheezing. Currently denies chest pain. Denies palpitations, but does report occasionally feels heart pounding. Denies abdominal pain, nausea, vomiting, diarrhea. Denies urinary symptoms. Denies musculoskeletal problems. Denies rashes, itching or other skin problems. PHYSICAL EXAMINATION GENERAL: Mr. Reilly is a 78-year-old male. He is sitting in the ED stretcher. Does not appear to be in any acute distress. VITAL SIGNS: Are as follows: Temp 98.3, pulse 69, respiratory rate 17, O2 sat 97% on room air, blood pressure 174/91. HEENT: Head is normocephalic. EOMs are intact. Mucous membranes are moist. NECK: Supple. No lymphadenopathy. RESPIRATORY: Lung sounds are clear, no wheezing, rhonchi or rales. HEART: S1, S2 normal. Systolic murmur noted. No rubs or gallops. ABDOMEN: Soft, nontender. Bowel sounds are present. EXTREMITIES: The patient has no edema. Pedal pulses are present bilaterally in upper and lower extremities. NEUROLOGICAL: The patient is awake. No focal deficits are noted. Aviation Safety Officer are equal. Moves all extremities well. DIAGNOSTIC STUDIES/LAB DATA: Laboratory data, white count 5.2, RBC 4.52, hemoglobin 13.1, hematocrit 40, platelet count 136. Sodium 137, potassium 4.4, chloride is 104, creatinine 1.31, glucose 86, calcium 9.4, magnesium 1.9, troponin 0.01. Radiographic data: Echo from December 2017, EF 50% to 60%, moderate to severe aortic stenosis. Stress test, December 2017 unremarkable. ASSESSMENT AND PLAN: This is a 78-year-old male with a past medical history of coronary artery stenosis bilaterally, high cholesterol and hypertension, who presents to the emergency room with chest pain x2 days. 1. Chest pain. Assessment: The patient is currently pain free after receiving 1 dose of sublingual nitro. Chest pain is reported to be exertional. The patient has cardiac risk factors as mentioned above. Plan: We will admit the patient to tele, we will repeat troponin. Echo ordered for tomorrow. In addition, sports bookmaker will be consulted by Dr. Barrera regarding how to proceed. 2. Hypertension. Assessment: The patient is currently noted to be hypertensive at 174/91. We will monitor vital signs routinely. We will hold ramipril due to increased creatinine and reassess as needed. 3. High cholesterol. Continue meds as same. 4. Bleeding ulcer. We will continue patient's omeprazole and iron as ordered at home. 5. Bilateral carotid stenosis. We will continue aspirin as ordered at home. 6. Moderate to severe aortic stenosis. Echo ordered for tomorrow. The patient placed on n.p.o. after midnight. 7. Fluids, electrolytes, and nutrition. The patient will be n.p.o. after midnight. 8. Deep vein thrombosis prophylaxis. The patient scores high risk, placed on heparin subcu t.i.d. 9. Code status. Full code. 10. Healthcare proxy is patient's daughter, Jana Reilly, who is with him tonight at the bedside. 11. The patient's primary care is Dr. Brown. PATIENT TIME: Greater than 50 minutes was spent doing history and physical and more than half of the time was spent in direct patient contact. I discussed this plan with my attending, Dr. Barrera, and she is in agreement. CAROL OSCAR, [place] [id number]/[facility] #: [id number] JHONATHAN
--- NOTE | 2018-08-27 05:44 | RAD ---
Indication: 2 days chest pain with unknown etiology. History of valvular cardiac disease. Comparison: January 19, 2018 Technique: Upright AP 1903 hours Report: Mild prominence of the interstitial markings without change. Mild linear atelectasis at the LEFT lung base. Negative for pleural effusion or pneumothorax. Cardiomegaly. Unremarkable central pulmonary vasculature and mediastinal contours. IMPRESSION: #. Mild cardiomegaly without compelling evidence for pulmonary edema. #. Mild LEFT basilar subsegmental atelectasis. R1
[2018-08-27] MEDS ORDERED: Heparin VIAL(*) 5000 UNITS/ML VIAL (FIVE THOUSAND) SUBCUT SCH (06:00)
[2018-08-27 06:46] LABS: ABS Basophils 0 10^3/ul (0-0.2); ABS Eosinophils 0.1 10^3/ul (0-0.6); ABS Lymphocytes 1.1 10^3/ul (1.0-4.8); ABS Monocytes 0.3 10^3/ul (0-0.8); ABS Neutrophils 2.5 10^3/ul (1.5-7.7); ABS Nucleated RBC 0 10^3/ul; Eosinophil % 2.3 % (0-6); Hematocrit 39 % (42-52); Hemoglobin 13.1 g/dl (14.0-18.0); Lymphocyte % 26.4 % (25-47); Mean Corpuscular HGB Conc 33 g/dl (31-36); Mean Corpuscular Hemoglobin 29 pg (27-31); Mean Corpuscular Volume 87 fL (80-94); Mean Platelet Volume 6.6 um3 (7.4-10.4); Nucleated Red Blood Cells % 0.1; Platelet Count 126 10^3/ul (150-450); Red Blood Count 4.47 10^6/ul (4.00-5.40); Red Cell Distribution Width 17 % (10.5-15)
[2018-08-27 08:11] LABS: EGFR Non-African American 61.5 (>60)
[2018-08-27] MEDS ORDERED: Omeprazole CAP* 20 MG PO SCH (09:00)
[2018-08-27] MEDS ORDERED: Thiamine TAB* 100 MG TAB PO SCH (09:00)
[2018-08-27] MEDS ORDERED: Multivitamins/Minerals TAB PO SCH (09:00)
[2018-08-27] MEDS ORDERED: Aspirin TAB* 325 MG PO SCH (09:00)
[2018-08-27] MEDS ORDERED: IRON PO SCH (09:00)
[2018-08-27] MEDS ORDERED: Folic Acid TAB* 1 MG PO SCH (09:00)
--- NOTE | 2018-08-27 12:15 | ECHO ---
Patient: CHRISTOPHER BARTON [facility] Rec#: [id number] : 1940 Date: 08/27/2018 Age: 78y Height: 178 cm / 70.1 in Weight: 97.07 kg / 213.9 lbs Sex: M BSA: 2.15 Room#: [facility] Admit Date#: 08/26/2018 Type: Inpatient Referring: Roberta Prabhakar Reading: Stefan Grissom DO Case Aide: Prabha Ochoa RDCS CC: Rm Brown MD Transthoracic Echocardiogram Indication: Valvular disease, chest pain BP: 136/60 HR: 56 Rhythm: Bradycardia Findings History: PAD, carotid endarterectomy, TIA, HLD, former smoker. Technical Comments: The study quality is fair. Completed at 1130. Left Ventricle: The left ventricular chamber size is normal. Mild concentric left ventricular hypertrophy is observed. Global left ventricular wall motion and contractility are within normal limits. There is normal left ventricular systolic function. The estimated ejection fraction is 60-65%. Abnormal left ventricular diastolic function is observed. Left Atrium: The left atrium is mildly dilated. Right Ventricle: The right ventricular chamber size and systolic function are within normal limits. Right Atrium: The right atrium is mildly dilated. Aortic Valve: Moderate aortic leaflet calcification is visualized.uncertain bicupsid vs. tricuspid aortic valve Systolic excursion of the aortic valve cusps is reduced. There is a trace of aortic regurgitation. There is moderate to severe aortic stenosis. The mean gradient of the aortic valve is 19 mmHg. The aortic valve area, by VTI's, is calculated at 1.05 cm2. Mitral Valve: Mild mitral annular calcification present. The mitral valve leaflets are mildly thickened. There is a trace of mitral regurgitation. There is no evidence of mitral stenosis. Tricuspid Valve: The tricuspid valve leaflets are normal. There is trace tricuspid regurgitation. Unable to estimate the right ventricular systolic pressure. There is no tricuspid stenosis. Pulmonic Valve: The pulmonic valve appears normal. There is a trace pulmonic regurgitation. There is no pulmonic stenosis. Pericardium: There is no significant pericardial effusion. Aorta: There is mild dilatation of the ascending aorta. There is no dilatation of the aortic arch. There is mild dilatation of the aortic root. Pulmonary Artery: The main pulmonary artery is not well visualized. Venous: The inferior vena cava appears normal in size. There is a greater than 50% respiratory change in the inferior vena cava dimension. Conclusions The left ventricular chamber size is normal. Mild concentric left ventricular hypertrophy is observed. There is normal left ventricular systolic function. The estimated ejection fraction is 60-65%. Global left ventricular wall motion and contractility are within normal limits. The left atrium is mildly dilated. The right ventricular chamber size and systolic function are within normal limits. There is moderate to severe aortic stenosis. There is mild dilatation of the aortic root. There is mild dilatation of the ascending aorta. Compared to prior study from 12/2017, no significant changes noted Measurements Name Value Normal Range RVIDd (AP) 2D 3.4 cm (0.9 - 2.6) RVDdMajor (2D) 4.7 cm (2.2 - 4.4) RAd ISD 4CH 6 cm (3.4 - 4.9) RA (A4C)W 4.7 cm (2.9 - 4.6) IVSd (2D) 1.1 cm (0.6 - 1) LVPWd (2D) 1.1 cm (0.6 - 1) LVIDd (2D) 4.4 cm (3.6 - 5.4) LVIDs (2D) 3.4 cm - LV FS (2D) 23 % (25 - 45) Aortic Annulus 2.5 cm (1.4 - 2.6) Ao root diameter (2D) 3.8 cm (2.1 - 3.5) Ascending Ao 3.7 cm (2.1 - 3.4) Aortic arch 2.6 cm (1.8 - 3.4) LA dimension (AP) 2D 3.8 cm (2.3 - 3.8) LAd ISD 4CH 6.2 cm (2.9 - 5.3) LA ISD 4CH W 4.3 cm (2.5 - 4.5) Name Value Normal Range LA ESV BP (A/L) index 32 ml/m2 - Name Value Normal Range MV E-wave Vmax 0.8 m/sec - MV deceleration time 296 msec - MV A-wave Vmax 1.1 m/sec - MV E:A ratio 0.7 ratio - LV septal e' Vmax 0.07 m/sec - LV lateral e' Vmax 0.07 m/sec - LV E:e' septal ratio 11.4 ratio - LV E:e' lateral ratio 11.4 ratio - Name Value Normal Range AV Vmax 2.9 m/sec - AV VTI 76 cm - AV peak gradient 33 mmHg - AV mean gradient 19 mmHg - LVOT diameter 2.2 cm - LVOT Vmax 1 m/sec - LVOT VTI 21.1 cm - LVOT peak gradient 4 mmHg - LVOT mean gradient 2 mmHg - DOI (VTI) 0.28 ratio - ANN (continuity Vmax) 1.1 cm2 - ANN (continuity VTI) 1.05 cm2 - DARCI Vmax 1.1 m/sec - Name Value Normal Range IVC diameter 1.9 cm - Name Value Normal Range PV Vmax 0.9 m/sec - PV peak gradient 3 mmHg -
--- NOTE | 2018-08-27 14:35 | CONSULT ---
Subjective Date of Service: 08/27/18 Interval History: Admission date 08/26/2018 Consult date 08/27/2018 PMD: Dr. Brown CC: CP and dyspnea Reason for consult: Same HPI Sachin Reilly is a 78 year old man known to be. He had been doing well doing light work around place. 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 He noticed chest pain left costal area and underneath left armpit associated with dyspnea. This for a period of time was only with activity for 2 days and relieved with rest. It eventually became continuous at rest for about 5 hours and relieved with SL NTG. No syncope. PMH: Medical Problems: Aortic Stenosis Peptic Ulcer Disease/UGIB, anemia 12/15/2017 EGD: Gold's mucosa, gastric ulcers non-bleeding Peripheral Vascular Disease (PVD) - PAD, s/p L carotid endarterectomy. Chronic right carotid occlusion. Presented with dizziness Surgical Hx: Rotator Cuff - (2005) Social History: Lives with daughter and granddaughter. daughter had a peripartum cardiomyopathy that recovered with medications. His earlier this year from a cardiac arrest. 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 Personal Habits : Smoking: Patient is a former smoker - End Date: 2004 Smoked 1PPD.Alcohol: several beer after work- (12/29/2017).Drug Use: Denies Drug Use. Allergies:No Known Drug Allergy 12/24/17 allergy list reviewed on 01/28/2018 FH: Father: due to Blood clot - (age 58 Years) during colonoscopy. Mother: due to Natural Causes - (age 101 Years). Siblings:2. Sister 1:Age: 82 as of (12/24/2017). Cancer. Sister 2:Age: 78 as of (12/24/2017). Diabetes. Medications Active Medications: Acetaminophen (Tylenol Tab*) 650 mg PO Q4H PRN PRN Reason: FEVER/PAIN Aspirin (Aspirin Tab*) 325 mg PO DAILY [facility] Last Admin: 08/27/18 08:15 Dose: 325 mg Atorvastatin Calcium (Lipitor*) 40 mg PO BEDTIME [facility] Heparin Sodium (Porcine) (Heparin Vial(*)) 5,000 units SUBCUT Q8HR [facility] Last Admin: 08/27/18 05:25 Dose: 5,000 units Multivitamins/Minerals (Theragran/Minerals Tab*) 1 tab PO DAILY [facility] Last Admin: 08/27/18 08:15 Dose: 1 tab Nitroglycerin (Nitroglycerin Tab 0.4 Mg*) 0.4 mg SL Q5M PRN PRN Reason: ANGINA Last Admin: 08/26/18 18:55 Dose: 0.4 mg Omeprazole (Prilosec Cap*) 40 mg PO DAILY [facility] Last Admin: 08/27/18 08:13 Dose: 40 mg Home Medications: Acetaminophen TAB* [Tylenol TAB*] 1,000 mg PO DAILY PRN 01/13/16 [History Confirmed 08/26/18] Aspirin TAB* [Aspirin 325 MG TAB*] 325 mg PO DAILY 01/16/16 [History Confirmed 08/26/18] Omeprazole CAP* [Prilosec CAP* 20 MG] 40 mg PO DAILY #60 cap 12/16/17 [Rx Confirmed 08/26/18] Iron 142 mg PO DAILY 02/27/18 [History Confirmed 08/26/18] Atorvastatin Calcium [Lipitor] 40 mg PO BEDTIME 08/26/18 [History Confirmed 02/08] Ramipril [Altace] 2.5 mg PO BEDTIME 08/26/18 [History Confirmed 08/26/18] Review of Systems - Measurements Intake and Output: Intake and Output Last 24 Hours 08/25/18 08/26/18 08/27/18 08/28/18 06:59 06:59 06:59 06:59 Intake Total 300 Balance 300 Weight 219 lb 1.6 oz Intake: Oral 300 Other: Estimated Void Medium # Bowel Movements 0 # Voids 3 - Review of Systems Constitutional Symptoms: Negative: Weight Gain, Weight Loss Dermatology: Negative: Rash, Skin Lesions HEENT: Negative: Change in Hearing, Vertigo Eyes: Negative: Change in Vision, Double Vision Thyroid: Negative: Palpitations, Primary Hypothyroidism, Primary Hyperthyroidism, Weight Loss, Weight Gain Pulmonary: Positive: Shortness of Breath Negative: Sputum, Hemoptysis, Respiratory Distress, COPD, Asthma, Home Oxygen Cardiology: Positive: Chest Pain, Shortness of Breath Negative: Palpitations, Swelling of Ankles, Peripheral Vascular Dis, Edema, Syncope, Claudication, Paroxysmal Nocturnal Dyspnea, Orthopnea Gastroenterology: Negative: Abdominal Pain, Nausea, Vomiting, Anorexia Genital - Urinary: Negative: Dysuria, Hematuria Musculoskeletal: Negative: Joint Pain, Joint Stiffness Endocrinology: Negative: Hirsutism, Menstrual Abnormalities, Polydipsia, Polyuria Hematologic/Lymphatic: Positive: Use of Antiplatelet Drugs Negative: Use of Anticoagulant Neurology: Negative: Migraines, Change in Vision, Diplopia, Change in Speech, Change in Sphincter Function, Hx Seizures Psychiatry: Negative: Unusual Anxiety, Suicidal Ideation Allergic/Immunologic: Negative: Hx HIV, Immunocompromise Review of Systems Statement: All other review of systems negative, unless stated above. Objective Vital Signs: Temp Pulse Resp BP Pulse Ox 97.8 F 80 16 159/86 96 08/27/18 12:43 08/27/18 12:43 08/27/18 12:43 08/27/18 12:43 08/27/18 11:34 Oxygen Devices in Use Now: None Appearance: obese, nad Ears/Nose/Mouth/Throat: Clear Oropharnyx Neck: NL Appearance and Movements; NL JVP, - - no bruit, left endarterectomy Respiratory: Symmetrical Chest Expansion and Respiratory Effort, Clear to Auscultation Cardiovascular: RRR, No Edema, - - 2/6 tera Abdominal: NL Sounds; No Tenderness; No Distention Extremities: No Edema Skin: No Rash or Ulcers Neurological: Alert and Oriented x 3 Laboratory Results: 08/27/18 06:37 08/27/18 06:37 Total Bilirubin 0.50 mg/dL (0.2-1.0) 08/26/18 18:57 AST 31 U/L (13-39) 08/26/18 18:57 ALT 24 U/L (7-52) 08/26/18 18:57 Alkaline Phosphatase 38 U/L (34-104) 08/26/18 18:57 Total Protein 7.2 g/dL (6.4-8.9) 08/26/18 18:57 Albumin 4.1 g/dL (3.2-5.2) 08/26/18 18:57 Globulin 3.1 g/dL (2-4) 08/26/18 18:57 Albumin/Globulin Ratio 1.3 (1-3) 08/26/18 18:57 Triglycerides 113 mg/dL 08/27/18 06:37 Cholesterol 134 mg/dL 08/27/18 06:37 LDL Cholesterol 39 mg/dL 08/27/18 06:37 HDL Cholesterol 72.7 mg/dL 08/27/18 06:37 08/26/18 08/26/18 08/27/18 18:57 21:35 00:52 Troponin I 0.01 0.01 0.01 12/14/2017 BNP 50 12/14 and 01/19/2018 cTnI 0.01 01/02/2018 tchol 185, ldl 107, hdl 59, tri 96 Hgb 12/22/2011: 15.1 12/15/2017: 9.2 01/20/2018: 10.5 Diagnostic Imaging: Cardiac Testing: Carotid Doppler - (07/01/2017) Right chronic carotid occlusion, left endarterectomy patent Echocardiogram - (01/20/2018) As per Dr. Grissom: Normal LVEF, mild LVH, LA mildly dilated, moderate aortic stenosis. Peak velocity 3 m/s, mean gradient 20 mmHg, Calculated ANN by VTI (with 2.2 cm LVOTd and 20 VTI for LVOT) is 1.2 cm ^2 with dimensionless index 0.31 Exercise Nuclear Stress Test - (12/16/2017) No evidence for stress induced myocardial ischemia or presence of an infarct. Poor exercise tolerance in setting of anemia Echo today: Normal LVEF, moderate to severe , calculated ANN 1.05 cm^2, peak velocity 2.9 m/s, mean gradient 19 mmHg Exercise stress echo: Poor exercise tolerance (similar to 11/2017) ~ 3:30 with stage 1 held, adequate BP response and LV augmentation. No chest discomfort or ischemic ekg changes EKG Data: ekg nsr, incomplete rbbb, pvcs, no ischemic ekg changes Assessment/Plan Ongoing chest pain continuously with serial undetectable troponins makes myocardial ischemia as a cause of pain unlikely. It was likely musculoskeletal related to recent work activities. Patient with moderate to severe (more consistent with moderate) aortic stenosis and a normal LVEF. Stress echo consistent with deconditioning and poor exercise tolerance unchanged since November. I advised weight loss He has planned cardiology follow up 01/2019
[2018-08-27 16:06] VITALS: BP 138/76
[2018-08-27] MEDS ORDERED: Atorvastatin* 40 MG TAB PO SCH (21:00)
--- NOTE | 2018-08-28 02:48 | DS ---
CC: Dr. Brown * DISCHARGE SUMMARY: DATE OF ADMISSION: 08/26/18 DATE OF DISCHARGE: 08/27/18 PATIENT OF ADMITTING HOSPITALIST: Dr. Glenna Barrera ATTENDING HOSPITALIST WHILE THE PATIENT HERE: Dr. Dozier* (DICTATED BY JENNIFER HEWITT) PRIMARY CARE PROVIDER: Dr. Rm Brown ADMISSION DIAGNOSES: 1. Chest pain. 2. History of carotid artery stenosis. 3. Hyperlipidemia. 4. Hypertension. 5. History of peptic ulcer disease with bleeding ulcer. 6. History of rotator cuff injury. DISCHARGE DIAGNOSES: 1. Chest pain. 2. History of carotid artery stenosis. 3. Hyperlipidemia. 4. Hypertension. 5. History of peptic ulcer disease with bleeding ulcer. 6. History of rotator cuff injury. ADMITTING PHYSICIAN: Dr. Barrera. CONSULTATIONS: Dr. Stefan Grissom, clinical documentation improvement specialist. PROCEDURES: Stress echocardiogram on 08/27/18. HISTORY OF PRESENT ILLNESS: Mr. Reilly is a 78-year-old male with past medical history significant for bilateral carotid artery stenosis with also left carotid endarterectomy in the past as well as hypertension, hyperlipidemia who presented to the emergency room yesterday with complaints of 2 days' history of left-sided chest pain. The patient notes that his pain started while he was working. 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 He was unloading a truck and noted some left-sided chest pain that eventually resolved once the patient rested. He described it as a dull aching pain with associated shortness of breath. Again resolved with rest. He called his daughter when he noticed that pain has gotten worse with minimal activity radiating to his left axilla and he presented to the emergency room for further evaluation. In the ED, he had a sublingual nitro x1 dose with significant relief of his pain. He had laboratory workup that revealed negative troponin and normal CBC and chemistry panel. His EKG showed no significant ST changes. Given the fact that he is a high risk with multiple issues that could increase his risk for ACS, we were asked to see the patient to consider admission to telemetry to rule out acute coronary syndrome. HOSPITAL COURSE: The patient was admitted on 08/26/18 to the telemetry unit for close observation. A series of trending troponin was obtained that was unremarkable. Records were reviewed showing that the patient had an echocardiogram back in December of this year that showed [id number] aortic stenosis as well as EF between 55% and 60%. He had a stress test in the same month that was unremarkable. The patient had no further episodes of chest pain since admission and he continued to clinically improve. He was kept n.p.o. after midnight and Cardiology consultation was obtained by Dr. Grissom in the morning. He recommended obtaining a resting echocardiogram as well as a stress induced echocardiogram for further evaluation of his chest pain. His echocardiogram at rest was repeated and it showed no significant changes compared to prior study back in December of this year. The patient continued to have more moderate than severe aortic stenosis per clinical documentation improvement specialist consultation and good ejection fraction with no evidence of any hypokinetic mobility or left ventricular abnormality. An exercise stress echocardiogram showed poor exercise tolerance that was similar to study done back in November of this year, also showed adequate blood pressure response and left ventricular augmentation and the patient experienced no chest discomfort or ischemic EKG changes during exercise test. Given all these recommendation, I had spoken with Dr. Grissom once again and he recommended that the patient would lose some weight and rest for the next few days. His ongoing chest pain with undetectable troponins make myocardial ischemia as a cause of his pain is very unlikely. It is more likely musculoskeletal related issue and that explains his pain during his work activity. I discussed these results with the patient who understood and agreed to plans. His laboratory workup was repeated today, showed stable CBC and chemistry panel. His lipid panel showed total cholesterol of 134 with triglycerides of 113, LDL of 39, and HDL of 72. The patient again had no symptoms of chest pain since admission. He will be discharged to home today and plan to follow him up by primary care physician next week and his normal cardiac followup is in January of next year. On exam today, he had temperature of 97.8, pulse of 80, blood pressure of 159/86 , respirations of 16 with O2 sat of 96% on room air. He was awake, alert, and oriented x3. His heart was regular rate and rhythm without rubs, murmurs, or gallops. His lungs were clear to auscultation bilaterally. His abdomen was soft, nontender, and nondistended. He will be discharged on the following discharge medications. DISCHARGE MEDICATIONS: 1. Tylenol 1000 mg p.o. q.6 hours as needed for fever or pain. 2. Aspirin 325 mg p.o. daily. 3. Lipitor 40 mg p.o. q.h.s. 4. Iron supplement 142 mg p.o. daily. 5. Altace 2.5 mg p.o. q.h.s. 6. Omeprazole 40 mg p.o. daily. JENNIFER HEWITT [id number]/[facility] #: [id number] [facility] STATE HOSPITALJosef
== END 2018-08-27 17:20 | disposition home or self-care (01) ==
LOC: ED 17:10 → MEDTELE 22:35
PROVIDERS: ADMIT Pediatrics; ATTEND Student in an Organized Health Care Education/Training Program
DX: R07.9 Chest pain, unspecified (principal); I65.23 Occlusion and stenosis of bilateral carotid arteries; I35.0 Nonrheumatic aortic (valve) stenosis; I10 Essential (primary) hypertension; E78.5 Hyperlipidemia, unspecified; K27.9 Peptic ulcer, site unspecified, unspecified as acute or chronic, without hemorrhage or perforation; E78.00 Pure hypercholesterolemia, unspecified; Z79.899 Other long term (current) drug therapy; Z79.02 Long term (current) use of antithrombotics/antiplatelets; Z87.891 Personal history of nicotine dependence; R06.09 Other forms of dyspnea; I51.7 Cardiomegaly; I45.10 Unspecified right bundle-branch block
CPT/HCPCS: 36415; 71045; 80048; 80053; 80061; 83036; 83735; 84484; 85025; 93005; 93017; 93306; 99284; A9270-GY; G0378; J1644

== ENCOUNTER 2018-10-21 10:10 | Day surgery (SDC) | payer MEDICARE, OTHER ==
[~2018-10-21 10:10] MED LIST: Acetaminophen TAB* 325 MG PO PRN; Buffered Lidocaine 0.9% SYRIN* 5 ML/SYR SYRINGE INTRADERM ONE
[2018-10-21] MEDS ORDERED: Midazolam* 1 MG/ML 2 ML VIAL (2 MG) ONE ×2 (12:26→12:38)
[2018-10-21] MEDS ORDERED: Lidocaine 1%* 5 ML VIAL ONE (12:47)
[2018-10-21] MEDS ORDERED: Lidocaine 2% EPI 1:200000 MPF*10-20 ML VIAL ONE (12:47)
[2018-10-21] MEDS ORDERED: Ketorolac 0.5% OPHTH (NF) 0.5 % 5 ML BTL ONE (12:47)
[2018-10-21] MEDS ORDERED: Cyclopentolate 1% OPTH.SOL* 2 ML BTL ONE (12:47)
[2018-10-21] MEDS ORDERED: Neomycin/Polymy/Dex OPTH.SUSP* MAXITROL 0.1% 5 ML ONE (12:47)
[2018-10-21] MEDS ORDERED: acetaZOLAMIDE TAB* 250 MG ONE (12:47)
[2018-10-21] MEDS ORDERED: Phenylephrine 2.5% OPTH.SOL* 2 ML BTL ONE (12:47)
[2018-10-21] MEDS ORDERED: Povidone Iodine 5% OPTH* 30 ML BTL ONE (12:47)
[2018-10-21] MEDS ORDERED: Proparacaine 0.5% OPHTH.SOL* 15 ML BTL ONE (12:48)
[2018-10-21 12:55] VITALS: BP 120/53
--- NOTE | 2018-10-22 06:54 | OP ---
DATE OF OPERATION: 10/21/18 [facility] DATE OF : 40 SURGEON: Zak Smith MD. PREOPERATIVE DIAGNOSIS: Cataract, left eye. POSTOPERATIVE DIAGNOSIS: Cataract, left eye. OPERATIVE PROCEDURE: Extracapsular cataract extraction with intraocular lens implant, left eye. DESCRIPTION OF PROCEDURE: The patient was brought to the operating room after being given 1/2% Alcaine with epinephrine drops in the preoperative area. The eye was prepped and draped in the usual sterile fashion. Sterile drape and eyelid speculum were placed. Again, topical 1/2% Alcaine with epinephrine was given. A paracentesis incision was made at the 3 o'clock position with the No.75 blade. Clear cornea incision 2.2 x 2.2-mm was created at the 6 o'clock position starting at the anterior limbus using the 2.2-mm keratome. The anterior chamber was irrigated with 0.4 mL of 1% non-preservative intracameral lidocaine and filled with DisCoVisc. A capsulorrhexis was completed using the cystotome and the Utrata forceps. Hydrodissection was performed with balanced salt solution. The lens nucleus was removed with the Phacoemulsification handpiece without incident. Cortex was removed with the irrigation-aspiration handpiece. The capsular bag was re-inflated using DisCoVisc and an [id number] implant was inserted with the shooter. Pupil was only 3 mm, so a Malyugin ring was used to dilate the pupil prior to capsulorrhexis and removed after insertion of the lens. The irrigation-aspiration handpiece was used to remove all residual DisCoVisc. The eye was refilled with balanced salt solution and the wound checked and found to be watertight. Topical Maxitrol drops were given. INDICATION FOR COMPLEX CATARACT SURGERY: Pupillary abnormalities requiring pupil dilation device. [id number]/[facility] #: [id number] [facility]Jose[facility]
== END 2018-10-21 12:58 | disposition home or self-care (01) ==
LOC: OREAST 10:10
PROVIDERS: ATTEND Specialist
DX: H25.812 Combined forms of age-related cataract, left eye (principal); H21.562 Pupillary abnormality, left eye; H35.342 Macular cyst, hole, or pseudohole, left eye; Z87.891 Personal history of nicotine dependence; I10 Essential (primary) hypertension; K21.9 Gastro-esophageal reflux disease without esophagitis; E78.5 Hyperlipidemia, unspecified; I73.9 Peripheral vascular disease, unspecified
CPT/HCPCS: A9270-GY; J2250; V2632

== ENCOUNTER 2018-10-28 07:40 | Day surgery (SDC) | payer MEDICARE, OTHER ==
[2018-10-28] MEDS ORDERED: Midazolam* 1 MG/ML 2 ML VIAL (2 MG) ONE ×2 (10:03→10:13)
[2018-10-28 10:38] VITALS: BP 118/70
[2018-10-28] MEDS ORDERED: Neomycin/Polymy/Dex OPTH.SUSP* MAXITROL 0.1% 5 ML ONE (10:47)
[2018-10-28] MEDS ORDERED: acetaZOLAMIDE TAB* 250 MG ONE (10:47)
[2018-10-28] MEDS ORDERED: Cyclopentolate 1% OPTH.SOL* 2 ML BTL ONE (10:47)
[2018-10-28] MEDS ORDERED: Ketorolac 0.5% OPHTH (NF) 0.5 % 5 ML BTL ONE (10:47)
[2018-10-28] MEDS ORDERED: Lidocaine 2% EPI 1:200000 MPF*10-20 ML VIAL ONE (10:47)
[2018-10-28] MEDS ORDERED: Lidocaine 1%* 5 ML VIAL ONE (10:47)
[2018-10-28] MEDS ORDERED: Proparacaine 0.5% OPHTH.SOL* 15 ML BTL ONE (10:47)
[2018-10-28] MEDS ORDERED: Povidone Iodine 5% OPTH* 30 ML BTL ONE (10:47)
[2018-10-28] MEDS ORDERED: Phenylephrine 2.5% OPTH.SOL* 2 ML BTL ONE (10:47)
--- NOTE | 2018-10-28 11:48 | OP ---
OPERATIVE NOTE: DATE OF OPERATION: 10/28/18 DATE OF : 40 SURGEON: Zak Smith M.D. PREOPERATIVE DIAGNOSIS: Cataract, right eye. POSTOPERATIVE DIAGNOSIS: Cataract, right eye. OPERATIVE PROCEDURE: Extracapsular cataract extraction with intraocular lens implant right eye. PROCEDURE: The patient was brought to the operating room after being given 1/2% Alcaine with epineph rine drops in the preoperative area. The eye was prepped and draped in the usual sterile fashion. S terile drape and eyelid speculum were placed. Again, topical 1/2% Alcaine with epinephrine was given . A paracentesis incision was made at the 9 o'clock position with the No.75 blade. Clear cornea inc ision 2.2 x 2.2-mm was created at the 12 o'clock position starting at the anterior limbus using the 2 .2-mm keratome. The anterior chamber was irrigated with 0.4 mL of 1% non-preservative intracameral l idocaine and filled with DisCoVisc. A capsulorrhexis was completed using the cystotome and the Utrat a forceps. Hydrodissection was performed with balanced salt solution. The lens nucleus was removed w ith the Phacoemulsification handpiece without incident. Cortex was removed with the irrigation-aspir ation handpiece. The capsular bag was re-inflated using DisCoVisc and an [id number] implant was inser mor with the shooter. The irrigation-aspiration handpiece was used to remove all residual DisCoVisc. The eye was refilled with balanced salt solution and the wound checked and found to be watertight. Topical Maxitrol drops were given. [id number]/[facility] #: [id number]
--- NOTE | 2018-10-28 20:56 | OP ---
OPERATIVE NOTE: ADDENDUM: Pupil was very small, so a Malyugin ring was placed prior to capsulorrhexis, removed after insertion of the lens and the indication for complex cataract surgery was pupil abnormalities requiring pupil dilation device. [id number]/[facility] #: [id number] MTDD
== END 2018-10-28 10:39 | disposition home or self-care (01) ==
LOC: OREAST 07:40
PROVIDERS: ATTEND Specialist
DX: H25.811 Combined forms of age-related cataract, right eye (principal); H35.342 Macular cyst, hole, or pseudohole, left eye; Z87.891 Personal history of nicotine dependence; I25.10 Atherosclerotic heart disease of native coronary artery without angina pectoris; E78.5 Hyperlipidemia, unspecified; I35.0 Nonrheumatic aortic (valve) stenosis; K21.9 Gastro-esophageal reflux disease without esophagitis; I65.29 Occlusion and stenosis of unspecified carotid artery
CPT/HCPCS: A9270-GY; J2250; V2632

== ENCOUNTER 2019-06-27 02:25 | Inpatient (IN) | payer MEDICARE, OTHER ==
--- NOTE | 2019-06-27 02:53 | ED ---
Complex/Multi-Sys Presentation - HPI Summary HPI Summary: This patient is a 78 year old M BIBHank to ED via EMS with a chief complaint of fall and diarrhea since 0200 this morning. Patient recently had an aortic valve replacement at [place], and was discharged yesterday. He felt fine eating dinner yesterday, but at bedtime began to feel hot. Patient woke up on the floor this morning, unsure of how he got there, and had an episode of incontinence and diarrhea. He does not think he injured anything during the fall. In the ED, patient feels pressure in the epigastric region. The patient rates the pain 0/10 in severity. Symptoms aggravated by nothing. Symptoms alleviated by nothing. Patient denies ZHAO. - History Of Current Complaint Chief Complaint: EDAbdPain Time Seen by Provider: 06/27/19 02:39 Hx Obtained From: Patient Onset/Duration: Sudden Onset Timing: Hours - Since 0200 this morning Severity Currently: Mild Severity Initially: Mild Location: Pain At: - Epigastric Aggravating Factor(s): Nothing Alleviating Factor(s): Nothing Associated Signs And Symptoms: Positive: Diarrhea, Other - Feeling hot. Negative: Headache - Allergies/Home Medications Allergies/Adverse Reactions: Allergies Allergy/AdvReac Type Severity Reaction Status Date / Time No Known Drug Allergies Allergy none Verified 06/27/19 02:48 Home Medications: Home Medications Amoxicillin 500 mg PO DAILY 06/27/19 [History Confirmed 06/27/19] Multivitamin [Multiple Vitamins] 1 tab PO DAILY 06/27/19 [History Confirmed 03/12] PMH/Surg Hx/FS Hx/Imm Hx Endocrine/Hematology History: Denies: Hx Diabetes Cardiovascular History: Reports: Hx Angina, Hx Coronary Artery Disease, Hx Hypercholesterolemia, Hx Hypertension, Hx Valvular Heart Disease, Other Cardiovascular Problems/Disorders - BI LAT CARROTID NARROWING, SURG, (LEFT OCCLUDED) RX BABY ASPRIN Denies: Hx Myocardial Infarction, Hx Peripheral Vascular Disease Respiratory History: Denies: Hx Asthma, Hx Chronic Obstructive Pulmonary Disease (COPD), Other Respiratory Problems/Disorders GI History: Reports: Hx Gastroesophageal Reflux Disease - on omeperazole, Hx Ulcer History: Reports: Hx Chronic Renal Failure Denies: Other Problems/Disorders Musculoskeletal History: Reports: Other Musculoskeletal History - Right knee pain, being worked up Sensory History: Reports: Hx Cataracts - Bilateral, Hx Contacts or Glasses - reading glasses Denies: Hx Hearing Aid Opthamlomology History: Reports: Hx Cataracts - Bilateral, Hx Contacts or Glasses - reading glasses Neurological History: Reports: Other Neuro Impairments/Disorders - numbness in hands while sleeping Denies: Hx Seizures - Cancer History Cancer Type, Location and Year: None reported Hx Chemotherapy: No - Surgical History Surgery Procedure, Year, and Place: carotid artery left; torn rotator cuff right. aortic valve replacement Hx Anesthesia Reactions: No - Immunization History Date of Influenza Vaccine: 10/10 Infectious Disease History: No Infectious Disease History: Denies: Hx Clostridium Difficile, Hx Hepatitis, Hx Human Immunodeficiency Virus (HIV), Hx of Known/Suspected MRSA, Hx Shingles, Hx Tuberculosis, Hx Known/ Suspected VRE, Hx Known/Suspected VRSA, History Other Infectious Disease, Traveled Outside the [place] in Last 30 Days - Family History Known Family History: Positive: Unknown - Pt denies family history when asked., Cardiac Disease - [place], Diabetes - Social History Alcohol Use: Occasionally Alcohol Amount: few beers weekly Hx Substance Use: No Substance Use Type: Reports: None Hx Tobacco Use: No Smoking Status (MU): Former Smoker Type: Cigarettes Amount Used/How Often: smoked off an on for many years-quit 2003 < 1ppd at the time Have You Smoked in the Last Year: No Review of Systems Constitutional: Other - Feeling "hot" Positive: Abdominal Pain - Epigastric, Diarrhea Negative: Headache All Other Systems Reviewed And Are Negative: Yes Physical Exam - Summary Physical Exam Summary: Appearance: Well-appearing, Well-nourished, lying in bed comfortably Skin: small contusion overlying lateral aspect of right brow Eyes: sclera anicteric, no conjunctival pallor ENT: mucous membranes moist, pharynx appears normal Neck: Supple, nontender Respiratory: Clear to auscultation, no signs of respiratory distress Cardiovascular: Normal S1, S2. No murmurs. Normal distal pulses in tibial and radial bilaterally. Abdomen: Soft, nontender, normal active bowel sounds present Musculoskeletal: Normal, Strength/ROM Intact Neurological: A&Ox3, awake and alert, mentation is normal, speech is fluent and appropriate Psychiatric: affect is normal, does not appear anxious or depressed GCS: 15 Triage Information Reviewed: Yes Vital Signs On Initial Exam: Initial Vitals Temp Pulse Resp BP Pulse Ox 97.2 F 83 16 142/56 97 06/27/19 02:28 08/04/19 02:28 06/27/19 02:28 06/27/19 02:28 06/27/19 02:28 Vital Signs Reviewed: Yes Diagnostics - Vital Signs Vital Signs Temp Pulse Resp BP Pulse Ox 06/27/19 02:28 97.2 F 83 16 142/56 97 - Laboratory Result Diagrams: 06/27/19 03:46 06/27/19 03:08 Lab Statement: Any lab studies that have been ordered have been reviewed, and results considered in the medical decision making process. - Radiology CXR Radiology Interpretation Completed By: ED Physician Summary of Radiographic Findings: No acute processes, pending official radiology report. - CT Brain CT Interpretation Completed By: Radiologist Summary of CT Findings: No acute intracranial abnormality. Dr. Grayson has reviewed this radiology report. - EKG 0310 Cardiac Rate: NL - 81 BPM EKG Rhythm: Sinus Rhythm Summary of EKG Findings: NSR at 81 BPM, RBBB, otherwise normal. Re-Evaluation - Re-Evaluation First Eval Re-Evaluation Time: 05:33 Change: Unchanged Comment: Discussed results w patient. Pt reports still having abd pain Second Eval Re-Evaluation Time: 05:46 Comment: Patient will be admitted to [facility]. Patient understands and agrees with this plan. Complex Multi-Symp Course/Dx Course Of Treatment: This patient is a 78 year old M BIBA to ED via EMS with a chief complaint of fall and diarrhea at 0200 this morning. EKG at 0310 revealed NSR at 81 BPM, RBBB, otherwise normal. CXR revealed no acute processes, pending official radiology report. Blood work revealed BUN 29, creatinine 1.72, glucose 127, magnesium 1.8, AST 83, troponin 0.18, RBC 3.84, Hgb 12.3, Hct 37, MCV 95, MCH 32, Plt count 94, MPV 6.7, absolute lymphs 0.7. UA revealed 1+(30mg/dl) urine protein, 1+ urine blood, 2+ urine leukocyte esterase, 2+(11-20/hpf) urine WBC, 1+(3-5/hpf) urine RBC. Brain CT revealed no acute intracranial abnormality. Discussed results with patient. Discussed patient case with Dr. Hernandez, hospitalist, who accepted the patient for admission to [facility]. Patient will be admitted to [facility] w dx of syncope. Patient understands and agrees with this plan. - Diagnoses Provider Diagnoses: Syncope - Physician Notifications Discussed Care Of Patient With: Temi Reich Time Discussed With Above Provider: 05:45 Instructed by Provider To: Admit As Inpatient - Discussed patient case with Dr. Hernandez, hospitalist, who accepted the patient for admission to [facility]. Discharge - Sign-Out/Discharge Documenting (check all that apply): Patient Departure - Admit Patient Received Moderate/Deep Sedation with Procedure: No - Discharge Plan Condition: Fair Disposition: ADMITTED TO [facility] Referrals: Anthony Draper NP [Primary Care Provider] - - Billing Disposition and Condition Condition: FAIR Disposition: Admitted to [facility] - Attestation Statements Document Initiated by Braden: Yes Documenting Scribe: Vicente Faust Provider For Whom Braden is Documenting (Include Credential): Sachin Grayson MD Scribvanessa Attestation: Vicente Howe, scribed for Sachin Grayson MD on 06/27/19 at 0624. Scribe Documentation Reviewed: Yes Provider Attestation: The documentation as recorded by the Vicente maloney accurately reflects the service I personally performed and the decisions made by , Sachin Grayson MD Status of Scribe Document: Viewed
[2019-06-27 03:40] LABS: Troponin I 0.18 ng/mL (<0.04)
[2019-06-27 03:44] LABS: Albumin 3.8 g/dL (3.2-5.2); Anion Gap 10 mmol/L (2-11); CO2 Carbon Dioxide 22 mmol/L (22-32); Calcium 9.1 mg/dL (8.6-10.3); Chloride 103 mmol/L (101-111); Magnesium 1.8 mg/dL (1.9-2.7); Sodium 135 mmol/L (135-145)
[2019-06-27 03:50] LABS: ALT 52 U/L (7-52); AST 83 U/L (13-39); Albumin/Globulin Ratio 1.3 (1-3); Alkaline Phosphatase 62 U/L (34-104); BUN/Creatinine Ratio 16.9 (8-20); Blood Urea Nitrogen 29 mg/dL (6-24); EGFR African American 46.8 (>60); EGFR Non-African American 38.6 (>60); Globulin 2.9 g/dL (2-4); Glucose 127 mg/dL (70-100); TSH (Thyroid Stimulating Horm) 5.03 mcIU/mL (0.34-5.60); Total Protein 6.7 g/dL (6.4-8.9)
[2019-06-27 04:15] LABS: ABS Eosinophils 0.1 10^3/ul (0-0.6); ABS Lymphocytes 0.7 10^3/ul (1.0-4.8); ABS Monocytes 0.7 10^3/ul (0-0.8); ABS Neutrophils 5.7 10^3/ul (1.5-7.7); Eosinophil % 0.7 %; Hematocrit 37 % (42-52); Hemoglobin 12.3 g/dL (14.0-18.0); Lymphocyte % 9.7 %; Mean Corpuscular HGB Conc 34 g/dL (31-36); Mean Corpuscular Hemoglobin 32 pg (27-31); Mean Corpuscular Volume 95 fL (80-94); Mean Platelet Volume 6.7 fL (7.4-10.4); Platelet Count 94 10^3/uL (150-450); Red Blood Count 3.84 10^6 /uL (4.18-5.48); Red Cell Distribution Width 14 % (10-15); White Blood Count 7.2 10^3/uL (3.5-10.8)
[2019-06-27 04:25] LABS: Urine Appearance Clear; Urine Bacteria Absent (Absent); Urine Bilirubin Negative (Negative); Urine Blood 1+ (Negative); Urine Color Yellow; Urine Glucose Negative (Negative); Urine Ketones Negative (Negative); Urine Nitrite Negative (Negative); Urine Protein 1+(30 mg/dL) (Negative); Urine Red Blood Cell 1+(3-5/hpf) (Absent); Urine Specific Gravity 1.012 (1.010-1.030); Urine Urobilinogen Negative (Negative); Urine White Blood Cell 2+(11-20/hpf) (Absent)
[2019-06-27] MEDS ORDERED: Heparin VIAL(*) 5000 UNITS/ML VIAL (FIVE THOUSAND) SUBCUT SCH (06:00)
[2019-06-27] MEDS ORDERED: Nitroglycerin TAB 0.4 MG* 0.4 MG TAB SL PRN (06:02)
[2019-06-27] MEDS ORDERED: Acetaminophen TAB* 325 MG PO PRN (06:02)
[2019-06-27 06:15] LABS: Troponin I 0.35 ng/mL (<0.04)
[2019-06-27] MEDS ORDERED: Magnesium Sulfate 2 GM IV* 2 GM/50 ML BAG IVPB ONE (07:24)
[2019-06-27 08:29] VITALS: BP 153/70
[2019-06-27] MEDS ORDERED: Multivitamins/Minerals TAB PO SCH (09:00)
[2019-06-27] MEDS ORDERED: Metoprolol Succinate XL TAB* 25 MG PO SCH (09:00)
[2019-06-27] MEDS ORDERED: Ramipril CAP* 2.5 MG PO SCH (09:00)
[2019-06-27] MEDS ORDERED: Amoxicillin PO (*) 500 MG CAP PO SCH (09:00)
[2019-06-27] MEDS ORDERED: Pantoprazole TAB * 40 MG TAB PO SCH (09:00)
[2019-06-27] MEDS ORDERED: Aspirin 81 mg CHEW TAB* 81 MG TAB.CHEW PO SCH (09:00)
[2019-06-27] MEDS ORDERED: Ticagrelor* 90 MG TAB PO SCH (09:00)
--- NOTE | 2019-06-27 09:18 | CONSULT ---
Subjective Date of Service: 06/27/19 Interval History: Date of admission and consult 06/27/2019 PCP Anthony Draper NP CC: Syncope Reason for consult: Heart block HPI: Mr. Sachin Reilly is a 78 year old man well known to me who had an uncomplicated TAVR valve for symptomatic severe on 06/23/[address] Perez at [facility]. Post-discharge he had been doing well. He went to watch a [employer] tournament yesterday. He had no exertional symptoms. Overnight be felt a warm flushed feeling throughout his entire body and like he had to go to the bathroom. He does not rememeber what happened but woke up incontinent of stool and sweating with chest discomfort. He was found with intermittent complete heart block with R-R intervals approximately 6 seconds. As long as he is laying down he just feels a warmth, anxiety and mild lightheadedness during these epsiodes. He is otherwise asymptomatic and has no current chest discomfort or dyspnea. He has no presyncope/sycnope during episodes while in bed. PMHx - He does have a history of PUD and EGD 02/2018 while on PPI (which he remains on) showed healed ulcer. 12/15/2017 EGD: Gold's mucosa, gastric ulcers non-bleeding - Cardiac catheterization - (03/01/2019) Dr. Marte [facility]: 80% calcified proximal LAD lesion. Subsequent PCI 03/22/2019 to proximal LAD KEENA 2.75 x 18 mm R femoral artery Dr. Gregory - Carotid Doppler - (07/01/2017) Right chronic carotid occlusion, left endarterectomy patent HTN Dyslpidemia Prior tobacco use RBBB surgical history - TAVR #29 alyssa 06/23/2019 Peripheral Vascular Disease (PVD) - PAD, s/p L carotid endarterectomy Rotator Cuff - (2005) Allergies: No Known Drug Allergy 12/24/17 allergy list reviewed on FH: Father: due to Blood clot - (age 58 Years) during colonoscopy. Mother: due to Natural Causes - (age 101 Years). Siblings:2. 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 Medications Active Medications: Acetaminophen (Tylenol Tab*) 650 mg PO Q6H PRN PRN Reason: MILD PAIN or TEMP > 100.4 Amoxicillin (Amoxicillin Po (*)) 500 mg PO DAILY [facility] Aspirin (Aspirin 81 Mg Chew Tab*) 81 mg PO DAILY [facility] Atorvastatin Calcium (Lipitor*) 40 mg PO BEDTIME [facility] Heparin Sodium (Porcine) (Heparin Vial(*)) 5,000 units SUBCUT Q8HR [facility] Multivitamins/Minerals (Theragran/Minerals Tab*) 1 tab PO DAILY [facility] Nitroglycerin (Nitroglycerin Tab 0.4 Mg*) 0.4 mg SL Q5M PRN PRN Reason: ANGINA Pantoprazole Sodium (Protonix Tab*) 40 mg PO QAM [facility] Ticagrelor (Brilinta*) 90 mg PO BID [facility] Home Medications: Atorvastatin Calcium [Lipitor] 40 mg PO BEDTIME 08/26/18 [History Confirmed 03/12] Ramipril [Altace] 2.5 mg PO DAILY 08/26/18 [History Confirmed 06/27/19] Omeprazole CAP (NF) [Prilosec CAP* 20 MG] 40 mg PO QAM 10/16/18 [History Confirmed 06/27/19] Aspirin 81 mg PO DAILY 05/07/19 [History Confirmed 06/27/19] Metoprolol Succinate [Metoprolol Succinate ER] 25 mg PO DAILY 05/07/19 [History Confirmed 06/27/19] Ticagrelor* [Brilinta*] 90 mg PO BID 05/07/19 [History Confirmed 06/27/19] Nitroglycerin TAB 0.4 MG* 0.4 mg SL Q5M PRN 05/10/19 [History Confirmed 06/27/19 ] Amoxicillin 500 mg PO DAILY 06/27/19 [History Confirmed 06/27/19] Multivitamin [Multiple Vitamins] 1 tab PO DAILY 06/27/19 [History Confirmed 03/12] Review of Systems - Measurements Intake and Output: Intake and Output Last 24 Hours 06/25/19 06/26/19 06/27/19 06/28/19 06:59 06:59 06:59 06:59 Weight 213 lb - Review of Systems Constitutional Symptoms: Negative: Weight Gain, Weight Loss Dermatology: Negative: Rash, Skin Lesions HEENT: Negative: Change in Hearing, Vertigo Eyes: Negative: Change in Vision, Double Vision Thyroid: Negative: Cold Intolerance, Heat Intolerance, Weight Loss, Weight Gain Pulmonary: Negative: Respiratory Distress, Shortness of Breath Cardiology: Positive: Faintness, Syncope Negative: Chest Pain, Shortness of Breath, Palpitations, Swelling of Ankles, Peripheral Vascular Dis, Edema, Claudication, Paroxysmal Nocturnal Dyspnea, Orthopnea Gastroenterology: Negative: Abdominal Pain, Nausea, Vomiting, Anorexia, Indigestion, Difficulty Swallowing, Heartburn, Constipation, Diarrhea, Blood in Stools, Change in Bowel Habits, Haematemesis, Melena Genital - Urinary: Negative: Dysuria, Hematuria Musculoskeletal: Negative: Joint Pain, Joint Stiffness Endocrinology: Positive: Obesity Negative: Pituitary Disease Hematologic/Lymphatic: Positive: Use of Antiplatelet Drugs Negative: Use of Anticoagulant Neurology: Positive: Dizziness Negative: Change in Balancing, Change in Coordination, Change in Memory, Change in Speech, Change in Sphincter Function, Change in Walking, Hx of Stroke\ TIA, Hx Seizures Psychiatry: Negative: Unusual Anxiety, Suicidal Ideation Allergic/Immunologic: Negative: Hx HIV, Immunocompromise Review of Systems Statement: All other review of systems negative, unless stated above. Objective Vital Signs: Temp Pulse Resp BP Pulse Ox 99.2 F 77 21 153/70 98 06/27/19 08:17 06/27/19 08:17 06/27/19 08:17 06/27/19 08:17 06/27/19 08:17 Oxygen Devices in Use Now: None Appearance: nad, pleasant Ears/Nose/Mouth/Throat: Clear Oropharnyx, Mucous Membranes Moist Neck: NL Appearance and Movements; NL JVP, Trachea Midline Respiratory: Symmetrical Chest Expansion and Respiratory Effort, Clear to Auscultation Cardiovascular: NL Sounds; No Murmurs; No JVD, RRR, No Edema Abdominal: NL Sounds; No Tenderness; No Distention Extremities: No Edema, - - bilateral groin ecchymosis without swelling Skin: No Rash or Ulcers Neurological: Alert and Oriented x 3 Laboratory Results: 06/27/19 03:46 06/27/19 03:08 Total Bilirubin 0.80 mg/dL (0.2-1.0) 06/27/19 03:08 AST 83 U/L (13-39) H 06/27/19 03:08 ALT 52 U/L (7-52) 06/27/19 03:08 Alkaline Phosphatase 62 U/L (34-104) 06/27/19 03:08 Total Protein 6.7 g/dL (6.4-8.9) 06/27/19 03:08 Albumin 3.8 g/dL (3.2-5.2) 06/27/19 03:08 Globulin 2.9 g/dL (2-4) 06/27/19 03:08 Albumin/Globulin Ratio 1.3 (1-3) 06/27/19 03:08 TSH 5.03 mcIU/mL (0.34-5.60) 06/27/19 03:08 06/27/19 06/27/19 03:08 05:43 Troponin I 0.18 H* 0.35 H* Diagnostic Imaging: Exam Date: 06/27/19 IMPRESSION: No acute intracranial abnormality. Exam Date: 06/27/19 CHEST PA & LAT 2 VWS IMPRESSION: No acute cardiopulmonary process by radiograph. Stress Echocardiogram Study Date: 05/10/2019 Summary: 1. Aortic valve: The mean systolic gradient is 40.0 mm Hg. The valve area by the velocity-time integral method is 0.95 cm^2. 2. Markedly abnormal exercise stress echocardiogram with development of angina, ischemic EKG changes, hypotensive blood pressure response and drop in LVEF with stress. Transthoracic Echocardiogram Study Date: 06/27/2019 Conclusions Summary: - Left ventricle: The cavity size is normal. Wall thickness is mildly to moderately increased. Systolic function is normal. The estimated ejection fraction is 60-65%. Wall motion is normal; there are no regional wall motion abnormalities. - Right ventricle: The cavity size is normal. Systolic function is normal. - Left atrium: The atrium is mildly to moderately dilated. - Pulmonary arteries: Systolic pressure is within the normal range. - Normal functioning #29 alyssa 3 TAVR valve. EKG Data: EKG on admission NSR, 1 AVB, RBBB Assessment/Plan 1. Intermittent complete heart block - symptomatic, presented with syncope while ambulating - Underlying RBBB - LVEF normal - Up to 6 second R-R intervals. As long as laying in bed he is sympatomatic ( warmth/flushing/mild lightheadedness) but no presyncope/syncope. 2. s/p POD 4 TAVR for severe symptomatic - LVEF normal 3. CAD s/p PCI 4. Carotid artery disease 5. Prior hx of PUD 6. Mild DAGO on CKD Recommendations: - Bedrest - Temporary PM external in place - Atropine at bedside - Hold home BB and AceI. Can use PRN hydralazine for SBP 180 mmHg - Ok for diet - Saline @ 50 cc/hr (ordered) - Electrophysiology (EP) consult. This is not available at our facility. I contacted the closest hospital [facility] and there is no EP wine consultant today. I contacted [facility] and Dr. Castillo (EP) has agreed to accept patient on Internal Medicine/Hospital service and consult on patient today. I discussed with Dr. Nazario from Hospitalist service who has agreed to accept patient. Thank you for allowing me to participate in the cardiovascular care of this patient. Please do not hesitate to contact me with questions or concerns.
--- NOTE | 2019-06-27 09:39 | ECHO ---
*[facility]* [place] [address] Fax #: [phone] Transthoracic Echocardiogram Patient: Sachin Reilly : 1940 Study Date: 06/27/2019 Age: 78 Gender: M HR: 81 bpm Height: 70 in /177.8 cm BSA: 2.14 m^2 Weight: 212.6 lb /96.6 kg BMI: 30.6 kg/m^2 *Freelance Operator: Oralia Monroe [facility] *Referring Physician: * Temi PortilloReading Physician: * Stefan Grissom MD Indications: Abnormal EKG. Syncope. History: Transient ischemic attack. Risk factors: Hypertension. Dyslipidemia. Labs, prior tests, procedures, and surgery: Aortic valve replacement with a bioprosthetic valve. Conclusions Summary: - Left ventricle: The cavity size is normal. Wall thickness is mildly to moderately increased. Systolic function is normal. The estimated ejection fraction is 60-65%. Wall motion is normal; there are no regional wall motion abnormalities. - Right ventricle: The cavity size is normal. Systolic function is normal. - Left atrium: The atrium is mildly to moderately dilated. - Pulmonary arteries: Systolic pressure is within the normal range. - Normal functioning #29 alyssa 3 TAVR valve. Recommendations: Compared to prior stress echocardiogram from 04/2019, TAVR valve replaces severe aortic stenosis Study data: Transthoracic echocardiogram. Procedure: Transthoracic echocardiography was performed. Image quality was adequate. Complete 2D, spectral Doppler, and color flow Doppler. Location: Emergency department. Patient status: Inpatient. Patient room number: 4. Rhythm: Heart block. Findings Left ventricle: The cavity size is normal. Wall thickness is mildly to moderately increased. Systolic function is normal. The estimated ejection fraction is 60-65%. Wall motion is normal; there are no regional wall motion abnormalities. Doppler parameters are consistent with abnormal left ventricular relaxation (grade 1 diastolic dysfunction). Right ventricle: The cavity size is normal. Systolic function is normal. Left atrium: The atrium is mildly to moderately dilated. Right atrium: The atrium is mildly dilated. Mitral valve: Is mildly calcified. The leaflets are mildly thickened. There is no evidence of stenosis. There is trace regurgitation. Aortic valve: Prior repair procedures include transcatheter aortic valve replacement. The leaflets appear normal. Follow-up TAVR: There is trace to mild aortic regurgitation. There is no evidence of stenosis. Tricuspid valve: The leaflets are normal thickness. There is no evidence of stenosis. There is trace regurgitation. Pulmonic valve: The leaflets are normal thickness. There is no evidence of stenosis. There is trace regurgitation. Aorta: Aortic arch: The aortic arch is mildly dilated. The aortic root appears normal. Pericardium: There is no significant pericardial effusion. Pulmonary arteries: The main pulmonary artery is normal-sized. Systolic pressure is within the normal range. Systemic veins: Inferior vena cava: The vessel is normal in size. There is (>= 50%) respiratory change in the IVC dimension. Measurements Left ventricle Value Ref Aortic valve continued Value Ref CATRACHITA, LAX 4.6 cm 4.2 - 5.8 Peak v, S 2.5 m/sec ----- ESD, LAX 2.7 cm 2.5 - 4.0 VTI, S 57.0 cm ----- FS, LAX 40 % 25 - 43 Mean grad, S 12.0 mm Hg ----- PW, ED, LAX (H) 1.3 cm 0.6 - 1.0 Peak grad, S 25.0 mm Hg ----- EF 71 % 52 - 72 LVOT/AV, VTI ratio 0.42 ----- E', lat linda, TDI (L) 5.0 cm/sec >=10.0 ANN, VTI 1.60 cm^2 - ---- E/e', lat linda, 19 ANN, Vmax 1.64 cm^2 ---- - TDI E', med linda, TDI (L) 4.3 cm/sec >=7.0 Mitral valve Value R ef E/e', med linda, 22 Peak E 0.96 m/sec ---- - TDI Peak A 1.21 m/sec ----- E', avg, TDI 4.7 cm/sec Decel time 166 ms ---- - E/e', avg, TDI (H) 21 <=14 PHT 92 ms - ---- Mean grad, D 3.0 mm Hg ----- LVOT Value Ref Peak grad, D 5.0 mm Hg ----- Diam, S 2.20 cm Peak E/A ratio 0.8 ----- Area 3.8 cm^2 MVA, PHT 2.4 cm^2 ----- Peak elizabeth, S 1.08 m/sec VTI, S 24.0 cm Pulmonic valve Value Ref Mean grad, S 2 mm Hg Peak v, S 0.92 m/sec ----- SV 90 ml Peak grad, S 3.0 mm Hg ----- Ventricular septum Value Ref Tricuspid valve Value Ref IVS, ED (H) 1.4 cm 0.6 - 1.0 TR peak v 1.9 m/sec <=2.8 Peak RV-RA grad, S 14 mm Hg ----- Right ventricle Value Ref CATRACHITA, LAX 2.5 cm Aortic root Value Ref CATRACHITA minor ax, A4C (H) 4.7 cm 1.9 - 3.5 Root diam 3.1 cm <4.2 mid Pressure, S 22 mm Hg Aortic arch Value Ref Arch diam 3.6 cm ----- Left atrium Value Ref AP dim, ES (H) 4.70 cm 3.00 - Decending aorta Value Ref 4.00 Ralph peak elizabeth 0.58 m/sec ----- ML dim, A4C 4.9 cm SI dim, A4C 5.5 cm Pulmonary artery Value Ref Vol/bsa, ES, A/L (H) 44 ml/m^2 16 - 34 Pressure, S 19.0 mm Hg ----- Right atrium Value Ref Inferior vena cava Value Ref SI dim, ES 5.2 cm 3.4 - 5.3 Diam 1.5 cm ----- ML dim, ES, A4C (H) 4.7 cm 2.6 - 4.4 Estimated RAP 8 mm Hg Aortic valve Value Ref Linda diam, ED 2.3 cm Legend: (L) and (H) olya values outside specified reference range. Prepared and electronically signed by Stefan Grissom MD 06/27/2019 09:39
--- NOTE | 2019-06-27 09:44 | HP ---
CC: Anthony Draper NP; Dr. Stefan Grissom; Dr. Michel Perez * HISTORY AND PHYSICAL: DATE OF ADMISSION: 06/27/19 TIME OF EVALUATION: 5:55 a.m. PRIMARY CAR PROVIDER: Anthony Draper NP MEDICAL ONCOLOGY PHYSICIAN: Dr. Stefan Grissom. CHIEF COMPLIANT: "I don't know what happened." HISTORY OF PRESENT ILLNESS: Mr. Reilly is a 78-year-old male with a past medical history of asthma, peripheral vascular disease, hyperlipidemia, hypertension, aortic valve stenosis, GERD, coronary artery stenosis on the left and occlusion on the right, peptic ulcer disease, who had a TAVR done at [facility] with Dr. Perez on 06/24/19. He states that he was doing well postop and he was discharged home on 06/26/19. He states that he was feeling well at home, went to bed little earlier than usual because he could not sleep well while in the hospital. He woke up around midnight with a feeling that he needed to go to the bathroom. He does not know exactly what happened, but he was on the floor and he was incontinent of stool. He was able to crawl to the bathroom to the shower, clean himself, and he noticed that he was sweating profusely and had some chest pressure. He was able to call his daughter and EMS was called. He states he also had some shortness of breath after the episode. He denies chest pain, palpitations, nausea, vomiting, fever, or other complaints. PAST MEDICAL HISTORY: 1. Asthma. 2. Peripheral arterial disease. 3. Hyperlipidemia. 4. Hypertension. 5. Aortic valve stenosis, status post TAVR on 06/24/19. 6. Status post right inguinal hernia repair. 7. GERD. 8. Left carotid artery stenosis and right carotid artery occlusion. 9. History of peptic ulcer disease. MEDICATION LIST: 1. Amoxicillin 500 mg p.o. daily. 2. Aspirin 81 mg p.o. daily. 3. Atorvastatin 40 mg p.o. at bedtime. 4. Metoprolol succinate 25 mg p.o. daily. 5. Multivitamin 1 tablet p.o. daily. 6. Nitroglycerin 0.4 mg sublingual q.5 minutes p.r.n. chest pain. 7. Omeprazole 40 mg p.o. q.a.m. 8. Ramipril 2.5 mg p.o. daily. 9. Ticagrelor 90 mg p.o. b.i.d. ALLERGIES: No known drug allergies. FAMILY HISTORY: Father of a blood clot at age 58. Mother at age 101 of natural causes. SOCIAL HISTORY: The patient is a former smoker, 1 pack per day, quit in 2004. He occasionally drinks alcohol. No history of drug use. Surrogate decision maker is his daughter, Wendi Reilly, phone number is [phone]. REVIEW OF SYSTEMS: A 14-point review of systems was performed, and all the pertinent negatives and positives are as per the HPI. PHYSICAL EXAMINATION GENERAL: The patient is a pleasant elderly gentleman, sitting up in bed, in no acute distress. VITAL SIGNS: Temperature 97.1, heart rate is 75, respiratory rate is 18, oxygen saturation 96% on room air, blood pressure 160/71. HEENT: Pupils are equal. Moist mucous membranes. The patient had a small abrasion and ecchymosis on the right forehead. CHEST: Breath sounds bilaterally with no added sounds. CVS: S1, S2. Regular rate and rhythm. ABDOMEN: Soft. Bowel sounds are present. EXTREMITIES: No edema. NEURO: He is alert and oriented x3. Able to move all 4 extremities. LABORATORY AND IMAGING DATA: The patient had a CBC that showed WBC of 7.2, hemoglobin of 12.3, hematocrit of 37, platelets of 94. Chemistry showed a sodium of 135, potassium of 4, chloride of 103, bicarb of 22, BUN of 29, creatinine of 1.7, glucose of 127, lactic acid 1.2, calcium 9.1, magnesium 1.8. LFTs showed total bilirubin of 0.8, AST of 83, ALT of 52, and alk phos of 62. First troponin is 0.18, second troponin 0.35. Urinalysis showed 1+ protein, 1+ blood, 2+ LE, 2+ wbc's. EKG done 06/27/19 at 3:10 a.m. showed sinus rhythm at 81 beats per minute with a borderline prolonged NJ interval and a right bundle-branch block and a repeat EKG done at 6:52 a.m. showed similar findings. Chest x-ray was not yet officially read, but to my eye there is no acute pulmonary disease, but we will follow up the official report. CT of the brain without contrast showed no acute intracranial abnormality. ASSESSMENT AND PLAN: Mr. Reilly is a 78-year-old male with a past medical history of hypertension, hyperlipidemia, peripheral vascular disease, status post recent transcatheter aortic valve replacement who presents to the emergency room after a probable syncopal episode. 1. Probable syncopal episode. The patient has a right bundle-branch block and he is at risk for heart block in the postop period. He has an event monitor ( ZIO XT) and this will be interrogated to see if he had significant arrhythmias when he was symptomatic. Initially, the plan was to have him admitted to telemetry, but after my evaluation, I was called by the emergency room nurse that the patient was having symptomatic pauses in the emergency room, so he will be upgraded to intensive care unit bed and he will have external pacemaker pads applied. I requested a consultation with Dr. Grissom. We will obtain records from the patient's procedure done at [facility] this past week. 2. Peripheral vascular disease. We will continue Brilinta and aspirin. 3. Hypertension is controlled at this time. We will continue ramipril. 4. Mild thrombocytopenia. The patient had mild thrombocytopenia in the past, but this is the lowest number. We will continue to monitor. He has no signs of active bleeding at this time. 5. Hyperlipidemia. We will continue atorvastatin. 6. DVT prophylaxis. The patient has a score of 4 on the DVT Prophylaxis Risk Assessment Guide and he will be started on subcutaneous heparin. 7. Code status is full. TIME SPENT: Approximately 65 minutes was spent with the patient interview, medical records review, physical examination to complete this admission; more than half of this time was spent [id number] with the patient and coordination of care. [id number]/[facility] #: [id number] MTDD
[2019-06-27] MEDS ORDERED: NS 0.9% 1000 ML** 1,000 ML IV SCH (10:15)
[2019-06-27] MEDS ORDERED: Atropine SYRINGE* 0.1 MG/ML 10 ML SYRINGE (1 MG) ONE (10:39)
--- NOTE | 2019-06-27 11:20 | PN ---
Cardiology Progress Note Date of Service: 06/27/19 Patient with prolonged heart block and LOC Responded to external cardiac pacing Tranvenous temporary pacemaker placed by Dr. Layne and much appreciated Patient awake and neurologically intact intermittent king [place] rhythm and paced rhythm Dr. Castillo and Dr. Nazario updated.
--- NOTE | 2019-06-27 11:35 | PN ---
Progress Note - Progress Note Date of Service: 06/27/19 Note: Critical Care Code Called Patient was about to be transferred to [facility] for PPM eval (recent TAVR) Fabián 20-30s; poor responsivesness CPR Started for 1 cycle on arrival, we started transcutaneous pacing and captured with better mental status and pulse Emergent TVP placed by me under sterile conditions with capture TVP placed on backup now awaiting CXR awake/alert, no distress, pulses+, good BP; on oximask. CXR pending Cardiology to continue transfer to [facility] Amrik Layne MD can capper
--- NOTE | 2019-06-27 11:37 | OP ---
Operative Report - Blank - Operative Report Date of Operation: 06/27/19 Note: Introducer Cathetor and TransVenous Pacing Wire Procedure Note Indication: Complete heart block Diagnosis: complete heart block Performed by: Dr Amrik Layne Consent: Emergent [place] Protocol: Time-out was performed and the correct patient and site were verified #1 - Prior labs/history was reviewed prior to procedure - Full sterile precautions with chlorhexidine/full drapes/gowns/gloves utilized - RIJ vein visualized with ultrasound - Vessel accessed under ultrasound guidance with return of nonpulsatile blood. A guidewire was passed into vessel and confirmed in vessel with ultrasound. 1 attempt was made to access vessel. Vessel was dilated and cathetor was passed over wire into vessel. All ports demonstrated good blood return and flushed. #2 -Temporary pacing wire balloon tested and found to be functional. Wire inserted and balloon inflated at 20 cm. Wire advanced under tele monitoring. Once ventricular capture obtained, balloon deflated, capture reconfirmed with pacing. Wire was further advanced by 2-3 cm with confirmed pacing still. Wire locked to introducer catheter and protective/sterile sheath advanced over wire. -Wire locked at 38-39 cm. Pacer set to 60 bpm (VVI), mA 7, sensitivity 0.5 No immediate complications. EBL <5cc. Post Procedure CXR: TVP in place in RV, no ptx noted okay to use introducer cathetor for infusions Amrik Layne MD Cartographic Technician (Electronically Signed)
--- NOTE | 2019-06-27 15:27 | TRS ---
CC: Anthony Draper NP; Dr. Stefan Grissom * TRANSFER SUMMARY: DATE OF ADMISSION: 06/27/19 DATE OF TRANSFER: 06/27/19 PRIMARY CARE PROVIDER: Anthony Draper NP OTHER PROVIDERS: Dr. tSefan Grissom; Dr. Castillo; Dr. Dunbar. ADMITTING PHYSICIAN: Dr. Dunbar, [facility]. ATTENDING PHYSICIAN: Dr. Caldera * (dictated by JENNIFER Gaxiola). CHIEF COMPLAINT: 1. Syncope. 2. Intermittent complete heart block. 3. Postop day #4, status post TAVR for severe symptomatic . SECONDARY DIAGNOSES: 1. Coronary artery disease, status post percutaneous coronary intervention. 2. Aortic stenosis, status post transcatheter aortic valve replacement . 3. Hypertension. 4. Hyperlipidemia. 5. Left carotid disease. 6. Peripheral artery disease. 7. Asthma. 8. Gastroesophageal reflux disease. CONSULTATIONS WHILE IN THE HOSPITAL: 1. Cardiology recommends bed rest; temporary pacemaker, external; atropine at bedside; p.r.n. hydralazine for SBP greater than 180; hold beta jazzy PRECIOUS; normal saline at 50 cc per hour. Recommend electrophysiology consult that is not available at our facility. [facility], Dr. Castillo, EP, has agreed to accept the patient and consult today. Discussed with Dr. Dunbar from hospitalist service who has agreed to accept the patient. 2. Critical care consultation. Code called. CPR x1 cycle. Transcutaneous pacing started. Emergent TVP placed. The patient now awake, alert, no distress , good blood pressure, pulses positive. Continue transfer to [facility] for PPM eval. STUDIES WHILE IN THE HOSPITAL: Transthoracic echocardiogram: Left ventricle cavity size normal, wall thickness mildly to moderately increased, systolic function normal, EF 60% to 65%, wall motion normal without regional wall motion abnormalities. Left atrium mildly to moderately dilated, normal functioning, # 29 Demetrius 3 TAVR valve. DISCHARGE MEDICATIONS: 1. Acetaminophen 650 mg p.o. q.6 hours p.r.n. pain or temperature. 2. Amoxicillin 500 mg p.o. daily. 3. Aspirin 81 mg p.o. daily. 4. Atorvastatin 40 mg p.o. at bedtime. 5. Heparin 5000 units subcu q.8 hours. 6. Multivitamin/minerals 1 tab p.o. daily. 7. Nitroglycerin 0.4 mg sublingual q.5 minutes p.r.n. angina. 8. Pantoprazole 40 mg p.o. q.a.m. 9. Sodium chloride at 50 mL per hour. 10. Ticagrelor 90 mg p.o. b.i.d. scheduled. HISTORY OF PRESENT ILLNESS/HOSPITAL COURSE: Mr. Reilly is a 78-year-old male with a past medical history of hypertension, hyperlipidemia, CAD, status post PCI, PAD, bilateral carotid disease, and aortic stenosis, status post TAVR 06/24, who presented to the ER early this morning after waking around midnight, walking to the bathroom, and waking on the floor incontinent of stool. He had associated diaphoresis, chest pressure, and shortness of breath. He called EMS and was transported to the hospital. In the hospital, he was noted to have a right bundle- branch block and symptomatic pauses while in the emergency department. He was transferred to the ICU with external pacer pads on. Cardiology was consulted. They recommended continuing external pacemakers in place, atropine at bedtime, beta- jazzy and PRECIOUS inhibitor were held, and hydralazine p.r.n. SBP greater than 180 was ordered. Cardiology recommended transfer to [facility] for electrophysiology consult. While preparations were being made to transfer the patient, he had a prolonged heart block leading to loss of consciousness. CPR was started for one cycle and transcutaneous pacing was started. An emergent transvenous pacer was placed. After this, the patient was noted to be awake, alert with good blood pressure and no distress. Dr. Castillo and Dr. Dunbar were updated and plan to continue transfer to a high level of care remains in place. At the time of transfer, the patient states he feels much better. He is somewhat tearful, but is alert, oriented, and denies chest pain. He states he is feeling "much better." He denies shortness of breath, diaphoresis. He is currently stable, guarded. He will be transferred to [facility]. PHYSICAL EXAM: Vital Signs: Temperature 97.6 temporal, heart rate 77, respiratory rate 21, oxygen saturation 98%, blood pressure 153/70. General: Mr. Reilly is an obese older white male who is lying in bed with the head of bed slightly elevated. He is cooperative, appropriate, talkative. He appears to be in no acute distress, although he is intermittently tearful. HEENT: The patient has a temporary transvenous pacer inserted and intact to the left neck. Cardiovascular: Regular rate and rhythm with S1, S2 present without murmurs, rubs, clicks, or gallops. There is no JVD. There is no peripheral edema. Radial and pedal pulses are palpable. Respiratory: Symmetrical chest expansion without use of accessory muscle. Lungs clear to auscultation bilaterally anteriorly without rhonchi, wheezes, or rubs. There is no digital clubbing or cyanosis. Abdomen: Obese. Bowel sounds in all quadrants. Nontender to palpation. Neuro: The patient is awake. He is alert and oriented x3 with cranial nerves grossly intact. He is able to move all of his extremities. DISCHARGE PLAN: Mr. Reilly will be transferred to [facility] under the care of Dr. Castillo, graduate assistant, and Dr. Dunbar, hospitalist. ACTIVITY: Bedrest. MEDICATIONS: As above. CONDITION: Stable, but guarded. This is a summarized report of complex medical history and hospital stay. For further details, please see the entire medical record. TIME SPENT: Approximately 35 minutes was spent on this transfer, greater than half of that time spent with the patient discussing discharge plans and instructions. JENNIFER BEVERLY [id number]/[facility] #: [id number] JHONATHAN
[2019-06-27] MEDS ORDERED: Atorvastatin* 40 MG TAB PO SCH (21:00)
== END 2019-06-27 12:00 | disposition short-term general hospital (02) | DRG 254 ==
LOC: ED 02:25 → MEDTELE 05:57 → ICU 07:05 → OBSVTOIN 09:31
PROVIDERS: ADMIT Internal Medicine; ATTEND Internal Medicine
PROC: 05H Upper Veins, Insertion (ICD-10-PCS; principal; 2019-06-27)
PROC: 05HM33Z Insertion of Infusion Device into Right Internal Jugular Vein, Percutaneous Approach (ICD-10-PCS; 2019-06-27)
PROC: B543ZZA Ultrasonography of Right Jugular Veins, Guidance (ICD-10-PCS; 2019-06-27)
DX: I44.2 Atrioventricular block, complete (principal); D69.6 Thrombocytopenia, unspecified; I65.23 Occlusion and stenosis of bilateral carotid arteries; I25.10 Atherosclerotic heart disease of native coronary artery without angina pectoris; I10 Essential (primary) hypertension; E78.5 Hyperlipidemia, unspecified; I73.9 Peripheral vascular disease, unspecified; J45.909 Unspecified asthma, uncomplicated; K21.9 Gastro-esophageal reflux disease without esophagitis; I45.10 Unspecified right bundle-branch block; R55 Syncope and collapse; K27.9 Peptic ulcer, site unspecified, unspecified as acute or chronic, without hemorrhage or perforation; Z95.2 Presence of prosthetic heart valve; Z98.61 Coronary angioplasty status; Z79.2 Long term (current) use of antibiotics; Z79.82 Long term (current) use of aspirin; Z79.899 Other long term (current) drug therapy; Z87.891 Personal history of nicotine dependence
CPT/HCPCS: 36415; 70450; 71045; 71046; 80053; 81003; 81015; 83605; 83735; 84443; 84484; 85025; 85060; 87077; 87086; 87186; 87641; 93005; 93306; 99284; A9270-GY; J0461; J1644; J3475

== ENCOUNTER 2019-07-27 20:54 | Emergency (ER) | payer MEDICARE, OTHER ==
[2019-07-27 21:08] VITALS: BP 142/69
--- OUTSIDE RECORDS SUMMARY | 2019-07-27 21:15 | XMS REPORT | Continuity of Care Document ---
:1940 External Reference #:[id number] Author Name Anthony Draper NP (transmitted by agent of provider Gemma Cordero) Address [address], [place] [address] Care Team Providers Name Role Phone Michael Fisher MD - Gastroenterology Care Team Information [employer] Denisse Calvert MD - Internal Medicine Care Team Information [employer]sman [phone] Problems Active Problems Provider Date Aortic valve stenosis Rm Brown M.D.,FACP Onset: 02/17/2018 Note: moderate Peripheral arterial occlusive disease Rm Brown M.D.,FACP Onset: Note: equivocal ABIs Peptic ulcer with hemorrhage Rm Brown M.D.,FACP Onset: 12/24/2017 Carotid artery occlusion Rm Brown M.D.,FACP Onset: 12/24/2017 Note: RIGHT Carotid artery stenosis Rm Brown M.D.,FACP Onset: 12/24/2017 Note: LT Ex-smoker Rm Brown M.D.,FACP Onset: 12/24/2017 Gastroesophageal reflux disease Rm Brown M.D.,FACP Onset: 2017 Inguinal hernia Rm Brown M.D.,FACP Onset: 12/24/2017 Note: RT Essential hypertension Rm Brown M.D.,FACP Onset: 04/28/2018 Hyperlipidemia Glenna Barrera DO Onset: 08/26/2018 Asthma Rm Brown M.D.,FACP Onset: 10/22/2018 Note: on PFTs Social History Type Date Description Comments Sex Unknown ETOH Use 12/29/2017 Occasionally consumes alcohol Recreational Drug Use Denies Drug Use Tobacco Use Start: Unknown End: Patient is a former Smoked 1PPD smoker Smoking Status Reviewed: 07/05/19 Patient is a former Smoked 1PPD smoker Exercise Type/Frequency Exercises regularly working & walking Allergies, Adverse Reactions, Alerts Description No Known Drug Allergies Medications Active Medications SIG Qnty Indications Ordering Date Provider Ramipril 1 by mouth every 90caps Stefan Grissom, 04/30/2019 2.5mg Capsules day DO FACC Aspirin 81 1 by mouth every Stefan Grissom, 04/07/2019 81mg Tablets day DO FACC DR Dean 1 tab by mouth 180tabs Stefan Grissom, 04/07/2019 90mg Tablets twice a day DO FACC Metoprolol Succinate 1 by mouth every 30tabs R07.9 Stefan Grissom, 2018 ER day DO FACC 25mg Tablets ER 24HR Sildenafil Citrate One tab 30 5tabs Anthony Draper NP 12/16/2018 50mg minutes prior to Tablets intercourse. Ventolin HFA 2 puffs by mouth 18units Rm Roblero 10/22/2018 108(90Base) four times a day Patrick Brown,FACP mcg/Act Aerosol as needed Atorvastatin Calcium 1 by mouth every 90tabs I65.29 Stefan Grissom, 01/28 40mg day DO FACC Tablets Omeprazole 1 by mouth every 90caps Denisse Calvert MD 12/24/2017 40mg Capsules day Acetaminophen Extra take 2 tabs PO Unknown Strength daily prn 500mg Capsules Nitroglycerin Unknown 0.4mg Tablets Sub Immunizations CPT Code Status Date Vaccine Lot # [id number] Given 09/23/2018 Influenza Virus Vaccine, Quadrivalent, Split, [id number] Preservative Free 93798 Given 04/28/2018 Pneumococcal Conjugate Vaccine 13 Valent For [id number] Intramuscular Use 48591 Given 10/03/2017 Influenza Virus Vaccine, Quadrivalent, Split, Preservative Free 06639 Given 01/13/2016 Tdap - Tetanus/Diptheria/Acellular Pertussis Vital Signs Date Vital Result Comment 07/05/2019 2:10pm Height 70.5 inches 5'10.50" Weight 215.00 lb Heart Rate 75 /min BP Systolic 152 mmHg BP Diastolic 80 mmHg BP Systolic Recheck 136 mmHg BP Diastolic Recheck 72 mmHg Body Temperature 97.1 F O2 % BldC Oximetry 98 % BMI (Body Mass Index) 30.4 kg/m2 05/03/2019 1:40pm Heart Rate 60 /min BP Systolic Sitting 120 mmHg Rue, large cuff BP Diastolic Sitting 58 mmHg Rue, large cuff BP Systolic Standing 112 mmHg Rue, large cuff BP Diastolic Standing 54 mmHg Rue, large cuff Respiratory Rate 12 /min Results Test Date Facility Test Result H/L Range Note Laboratory test [facility] Troponin-I 0.35 ng/mL Critical high <0.04 1 finding [address] (TnI) [place] [address] [phone] CBC Auto Diff [facility] White 7.2 10^3/uL Normal 3.5-10.[address] [place] [address] Count [phone] Red Blood Count 3.84 10^6/uL Low 4.18-5.48 Hemoglobin 12.3 g/dL Low 14.0-18.0 Hematocrit 37 % Low 42-52 Mean Corpuscular Volume 95 fL High 80-94 Mean Corpuscular Hemoglobin 32 pg High 27-31 Mean Corpuscular HGB Conc 34 g/dL Normal 31-36 Red Cell Distribution Width 14 % Normal 10-15 Platelet Count 94 10^3/uL Low 150-450 Mean Platelet Volume 6.7 fL Low 7.4-10.4 Abs Neutrophils 5.7 10^3/uL Normal 1.5-7.7 Abs Lymphocytes 0.7 10^3/uL Low 1.0-4.8 Abs Monocytes 0.7 10^3/uL Normal 0-0.8 Abs Eosinophils 0.1 10^3/uL Normal 0-0.6 Abs Basophils 0.0 10^3/uL Normal 0-0.2 Abs Nucleated RBC 0.0 10^3/uL Granulocyte % 80.1 % Lymphocyte % 9.7 % Monocyte % 9.4 % Eosinophil % 0.7 % Basophil % 0.1 % Nucleated Red Blood Cells % 0.0 Laboratory test 06/27/2019 [facility] Pathologist (SEE NOTE) [address] [place] [address] [phone] Laboratory test 06/27/2019 [facility] Lactic Acid 1.2 mmol/L Normal 0.5-[address] [place] [address] [phone] Troponin-I (TnI) 0.18 ng/mL Critical high <0.04 4 Comp Metabolic 06/27/2019 [facility] Sodium 135 mmol/L Normal 135-[address] [place] [address] [phone] Potassium 4.0 mmol/L Normal 3.5-5.0 Chloride 103 mmol/L Normal 101-111 Co2 Carbon Dioxide 22 mmol/L Normal 22-32 Anion Gap 10 mmol/L Normal 2-11 Calcium 9.1 mg/dL Normal 8.6-10.3 Albumin 3.8 g/dL Normal 3.2-5.2 Total Bilirubin 0.80 mg/dL Normal 0.2-1.0 Glucose 127 mg/dL High 70-100 Blood Urea Nitrogen 29 mg/dL High 6-24 Creatinine 1.72 mg/dL High 0.67-1.17 BUN/Creatinine Ratio 16.9 Normal 8-20 Total Protein 6.7 g/dL Normal 6.4-8.9 Globulin 2.9 g/dL Normal 2-4 Albumin/Globulin Ratio 1.3 Normal 1-3 Alkaline Phosphatase 62 U/L Normal 34-104 Alt 52 U/L Normal 7-52 Ast 83 U/L High 13-39 Egfr Non- 38.6 >60 Egfr 46.8 >60 5 Laboratory test 06/27/2019 [facility] Magnesium 1.8 mg/dL Low 1.9-2.[address] [place] [address] [phone] TSH (Thyroid Stim Horm) 5.03 mcIU/mL Normal 0.34-5.60 Urinalysis Profile 06/27/2019 [facility] Urine Color Yellow [address] [place] [address] [phone] Urine Appearance Clear Urine Specific [place] 1.012 Normal 1.010-1.030 Urine pH 6.0 Normal 5-9 Urine Urobilinogen Negative Negative Urine Ketones Negative Negative Urine Protein 1+(30 mg/dL) Abnormal Negative Urine Leukocytes 2+ Abnormal Negative Urine Blood 1+ Abnormal Negative Urine Nitrite Negative Negative Urine Bilirubin Negative Negative Urine Glucose Negative Negative Urine White Blood Cell 2+(11-20/hpf) Abnormal Absent Urine Red Blood Cell 1+(3-5/hpf) Abnormal Absent Urine Bacteria Absent Absent Urine Culture And 06/27/2019 [facility] Urine SEE RESULT [address] [place] [address] [phone] CBC Auto Diff 04/30/2019 [facility] White Blood 6.2 10^3/uL Normal 3.5-[address] Count 0.8 [place] [address] [phone] Red Blood Count 4.18 10^6/uL Normal 4.18-5.48 Hemoglobin 13.2 g/dL Low 14.0-18.0 Hematocrit 39 % Low 42-52 Mean Corpuscular Volume 94 fL Normal 80-94 Mean Corpuscular Hemoglobin 32 pg High 27-31 Mean Corpuscular HGB Conc 34 g/dL Normal 31-36 Red Cell Distribution Width 14 % Normal 10-15 Platelet Count 165 10^3/uL Normal 150-450 Mean Platelet Volume 6.6 fL Low 7.4-10.4 Abs Neutrophils 4.7 10^3/uL Normal 1.5-7.7 Abs Lymphocytes 1.0 10^3/uL Normal 1.0-4.8 Abs Monocytes 0.5 10^3/uL Normal 0-0.8 Abs Eosinophils 0.1 10^3/uL Normal 0-0.6 Abs Basophils 0.0 10^3/uL Normal 0-0.2 Abs Nucleated RBC 0.0 10^3/uL Granulocyte % 75.0 % Lymphocyte % 15.8 % Monocyte % 7.9 % Eosinophil % 1.1 % Basophil % 0.2 % Nucleated Red Blood Cells % 0.0 Comp Metabolic 04/30/2019 [facility] Sodium 135 mmol/L Normal 135-[address] [place] [address] [phone] Chloride 104 mmol/L Normal 101-111 Co2 Carbon Dioxide 26 mmol/L Normal 22-32 Glucose 101 mg/dL High 70-100 Blood Urea Nitrogen 34 mg/dL High 6-24 Creatinine 1.47 mg/dL High 0.67-1.17 BUN/Creatinine Ratio 23.1 High 8-20 Calcium 9.6 mg/dL Normal 8.6-10.3 Total Protein 7.1 g/dL Normal 6.4-8.9 Albumin 4.3 g/dL Normal 3.2-5.2 Globulin 2.8 g/dL Normal 2-4 Albumin/Globulin Ratio 1.5 Normal 1-3 Total Bilirubin 0.80 mg/dL Normal 0.2-1.0 Alkaline Phosphatase 47 U/L Normal 34-104 Alt 26 U/L Normal 7-52 Ast 30 U/L Normal 13-39 Egfr Non- 46.3 >60 Egfr 56.1 >60 7 Potassium 5.1 mmol/L High 3.5-5.0 Anion Gap 5 mmol/L Normal 2-11 Basic Metabolic 03/24/2019 [facility] Sodium 140 mmol/L Normal 135-[address] [place] [address] [phone] Potassium 4.5 mmol/L Normal 3.5-5.0 Chloride 106 mmol/L Normal 101-111 Co2 Carbon Dioxide 28 mmol/L Normal 22-32 Anion Gap 6 mmol/L Normal 2-11 Glucose 84 mg/dL Normal 70-100 Blood Urea Nitrogen 26 mg/dL High 6-24 Creatinine 1.50 mg/dL High 0.67-1.17 BUN/Creatinine Ratio 17.3 Normal 8-20 Calcium 9.4 mg/dL Normal 8.6-10.3 Egfr Non- 45.3 >60 Egfr 54.8 >60 8 CBC No Diff 03/24/2019 [facility] White Blood 6.0 10^3/uL Normal 3.5-10.[address] [place] [address] [phone] Red Blood Count 4.37 10^6/uL Normal 4.18-5.48 Hemoglobin 13.7 g/dL Low 14.0-18.0 Hematocrit 41 % Low 42-52 Mean Corpuscular Volume 93 fL Normal 80-94 Mean Corpuscular Hemoglobin 31 pg Normal 27-31 Mean Corpuscular HGB Conc 34 g/dL Normal 31-36 Red Cell Distribution Width 15 % Normal 10.5-15 Platelet Count 156 10^3/uL Normal 150-450 Mean Platelet Volume 6.9 fL Low 7.4-10.4 Inr/Protime 03/01/2019 [facility] Inr 0.90 Normal 0.77-1.[address] [place] [address] [phone] Basic Metabolic 03/01/2019 [facility] Sodium 136 mmol/L Normal 135-[address] [place] [address] [phone] Potassium 4.2 mmol/L Normal 3.5-5.0 Chloride 105 mmol/L Normal 101-111 Co2 Carbon Dioxide 23 mmol/L Normal 22-32 Anion Gap 8 mmol/L Normal 2-11 Glucose 118 mg/dL High 70-100 Blood Urea Nitrogen 21 mg/dL Normal 6-24 Creatinine 1.29 mg/dL High 0.67-1.17 BUN/Creatinine Ratio 16.3 Normal 8-20 Calcium 9.4 mg/dL Normal 8.6-10.3 Egfr Non- 53.9 >60 Egfr 65.2 >60 9 CBC Auto 03/01/2019 [facility] White Blood 5.9 10^3/uL Normal 3.5-10.[address] [place] [address] [phone] Red Blood Count 4.74 10^6/uL Normal 4.18-5.48 Hemoglobin 14.6 g/dL Normal 14.0-18.0 Hematocrit 44 % Normal 36-46 Mean Corpuscular Volume 92 fL Normal 80-94 Mean Corpuscular Hemoglobin 31 pg Normal 27-31 Mean Corpuscular HGB Conc 33 g/dL Normal 31-36 Red Cell Distribution Width 15 % Normal 10.5-15 Platelet Count 159 10^3/uL Normal 150-450 Mean Platelet Volume 6.6 fL Low 7.4-10.4 Abs Neutrophils 4.1 10^3/uL Normal 1.5-7.7 Abs Lymphocytes 1.2 10^3/uL Normal 1.0-4.8 Abs Monocytes 0.5 10^3/uL Normal 0-0.8 Abs Eosinophils 0.1 10^3/uL Normal 0-0.6 Abs Basophils 0 10^3/uL Normal 0-0.2 Abs Nucleated RBC 0 10^3/uL Granulocyte % 70.0 % Lymphocyte % 19.9 % Monocyte % 8.7 % Eosinophil % 1.1 % Basophil % 0.3 % Nucleated Red Blood Cells % 0 Venous Blood 03/01/2019 [facility] Venous Blood 7.36 Normal 7.32-7.[address] [place] [address] [phone] Venous Pco2 42 mmHg Normal 41-51 Venous Po2 42.0 mmHg Normal 35-45 Venous O2 Saturation 73.5 % Normal 70-80 Venous Blood Base Excess -1.8 mmol/L Low 0.0-4.0 10 Venous Bicarbonate Hco3 22.8 mmol/L Low 24-28 Arterial Blood 03/01/2019 [facility] PH Arterial 7.37 Normal 7.35-7.45 Gas [address] [place] [address] [phone] Pco2 Arterial 39 mmHg Normal 35-45 Po2 Arterial 68 mmHg Low 80-100 O2 Saturation Arterial 94.4 % Normal 94.0-98.0 Base Excess Arterial -2.5 mmol/L Low -2.0-2.0 11 Hco3 Arterial 22.9 mmol/L Normal 19-31 So2 03/01/2019 [facility] Poc So2 90 % [address] [place] [address] [phone] Poc Specimen Type Arterial 13 1 Result TnIDx:0.35 Called to [employer] at: 06:14:17 by:[id number] Read back by: [id number] Troponin-I testing on Plasma Separator Tubes (PST) has a known false positive rate of 0.20-0.40%. All positive troponins reflex immediately to secondary confirmatory testing. Using the [employer] 800 Access Immunoassay systems, the 99th percentile upper reference limit was demonstrated to be < 0.03 ng/mL. 2 Mild macrocytic anemia with thrombocytopenia noted. No schistocytes or blasts are identified. Additional studies as clinically warranted. Reviewed by Dr. Pacheco 3 [facility] Severe Sepsis and Septic Shock Management Bundle Measure requires all lactic acids initially measuring >2.0 mmol/L be repeated. 4 Result TnIDx:0.18 Called to [id number] at: 03:39:06 by:[id number] Read back by: [id number] Troponin-I testing on Plasma Separator Tubes (PST) has a known false positive rate of 0.20-0.40%. All positive troponins reflex immediately to secondary confirmatory testing. Using the [employer] 800 Access Immunoassay systems, the 99th percentile upper reference limit was demonstrated to be < 0.03 ng/mL. 5 Because ethnic data is not always readily available, this report includes an eGFR for both -Americans and non- Americans. The National Kidney Disease Education Program (NKDEP) does not endorse the use of the MDRD equation for patients that are not between the ages of 18 and 70, are , have extremes of body size, muscle mass, or nutritional status, or are non- or non-. According to the National Kidney Foundation, irrespective of diagnosis, the stage of the disease is based on the level of kidney function: Stage Description GFR(mL/min/1.73 m(2)) 1 Kidney damage with normal or decreased GFR 90 2 Kidney damage with mild decrease in GFR 60-89 3 Moderate decrease in GFR 30-59 4 Severe decrease in GFR 15-29 5 Kidney failure <15 (or dialysis) 6 SEE RESULT BELOW Name: SACHIN REILLY : [address]: Mesha Caldera MD Acct: [id number] Unit: [id number] AGE: 78 Location: ICU [id number] Re06/27/19 Dis: 06/27/19 SEX: M Status: DIS IN SPEC: [id number] ADINA: 06/27/19-340 [facility] DR: Sachin Grayson MD REQ: [id number] RECD: 06/27/19 STATUS: RUBEN COYLE DR: Anthony Draper [employer] _ SOURCE: URINE [facility]: ORDERED: Urine Culture Procedure Result Reported Site Urine Culture Final 06/29/19- 0838 ML Organism 1 [facility] [place] Count 25-50,000 (Moderate) CFU/ML 1. [facility] RX --------- ------ Cefazolin >=64 R Cefepime <=1 S Ceftriaxone 16 I Ciprofloxacin <=0.25 S Gentamicin <=1 S Levofloxacin <=0.12 S Meropenem <=0.25 S Nitrofurantoin 64 I Tetracycline <=1 S Pipercillin/Tazobactam >=128 R Trimethoprim/Sulfamethoxazole <=20 S Amoxicillin/Clavulanic Acid >=32 R Aztreonam 16 I Contact the Microbiology Department for any additional antibiotic reporting. * [facility] - Main Lab . END OF REPORT DEPARTMENT OF PATHOLOGY, [address] [place] [address] Beto Pacheco M.D. Director [facility] # [id number] 7 Because ethnic data is not always readily available, this report includes an eGFR for both -Americans and non- Americans. The National Kidney Disease Education Program (NKDEP) does not endorse the use of the MDRD equation for patients that are not between the ages of 18 and 70, are , have extremes of body size, muscle mass, or nutritional status, or are non- or non-. According to the National Kidney Foundation, irrespective of diagnosis, the stage of the disease is based on the level of kidney function: Stage Description GFR(mL/min/1.73 m(2)) 1 Kidney damage with normal or decreased GFR 90 2 Kidney damage with mild decrease in GFR 60-89 3 Moderate decrease in GFR 30-59 4 Severe decrease in GFR 15-29 5 Kidney failure <15 (or dialysis) 8 Because ethnic data is not always readily available, this report includes an eGFR for both -Americans and non- Americans. The National Kidney Disease Education Program (NKDEP) does not endorse the use of the MDRD equation for patients that are not between the ages of 18 and 70, are , have extremes of body size, muscle mass, or nutritional status, or are non- or non-. According to the National Kidney Foundation, irrespective of diagnosis, the stage of the disease is based on the level of kidney function: Stage Description GFR(mL/min/1.73 m(2)) 1 Kidney damage with normal or decreased GFR 90 2 Kidney damage with mild decrease in GFR 60-89 3 Moderate decrease in GFR 30-59 4 Severe decrease in GFR 15-29 5 Kidney failure <15 (or dialysis) 9 Because ethnic data is not always readily available, this report includes an eGFR for both -Americans and non- Americans. The National Kidney Disease Education Program (NKDEP) does not endorse the use of the MDRD equation for patients that are not between the ages of 18 and 70, are , have extremes of body size, muscle mass, or nutritional status, or are non- or non-. According to the National Kidney Foundation, irrespective of diagnosis, the stage of the disease is based on the level of kidney function: Stage Description GFR(mL/min/1.73 m(2)) 1 Kidney damage with normal or decreased GFR 90 2 Kidney damage with mild decrease in GFR 60-89 3 Moderate decrease in GFR 30-59 4 Severe decrease in GFR 15-29 5 Kidney failure <15 (or dialysis) 10 Reference ranges based on room air. 11 Reference ranges based on room air. 12 Arterial Reference Range: 95-98% Venous Reference Range: 70-80% 13 Pipe Line Gauger: [id number] Procedures Date Code Description Status 06/27/2019 28838 Insert Non-Tunneled Venous Catether Completed 06/27/2019 82521 Temp. Pacemaker Insertion Completed 05/10/2019 20197 Stress ECHO Interpretation/Report Hospital Completed 05/10/2019 24610 Treadmill Interp/Report Only Completed 05/10/2019 33731 Stress Test Supervsn W/Out I/R Completed 05/03/2019 12850 EKG Tracing & Interpretation Completed 04/07/2019 47676 EKG Tracing & Interpretation Completed 04/05/2019 152262222 Diabetic Retinal Eye Exam Completed 03/01/2019 63936 RT & lt Cath W/Injx HRT Art&L Ventr Img S&I Completed 02/24/2019 19490 ECHO Stress Test Incl Perf Contiuous ekg Monitoring Completed W/Phys Superv 02/16/2019 09324 EKG Tracing & Interpretation Completed 10/14/2018 499265386 Diabetic Retinal Eye Exam Completed 10/12/2018 [id number] Diabetic Retinal Eye Exam Completed Medical Devices Description No Information Available Encounters Type Date Location Provider Dx Diagnosis Office Visit 04/07/2019 [facility] Stefan Grissom, 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 I35.0 Nonrheumatic Of Lisa Grissom, DO aortic (valve) FACC stenosis R07.9 Chest pain, unspecified F17.201 Nicotine dependence, unspecified, in remission I73.9 Peripheral vascular disease, unspecified I65.29 Occlusion and stenosis of unspecified carotid artery E78.5 Hyperlipidemia, unspecified Assessments Date Code Description Provider 07/05/2019 I10 Essential (primary) hypertension Anthony Draper NP 07/05/2019 Z95.0 Presence of cardiac pacemaker Anthony Draper NP 05/10/2019 I35.0 Nonrheumatic aortic (valve) stenosis Stefan Grissom, DO FACC 05/03/2019 I10 Essential (primary) hypertension Nurse Visit IC 05/03/2019 I45.10 Unspecified right bundle-branch block Nurse Visit IC 04/07/2019 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 Grissom, DO FACC carotid artery 04/07/2019 E78.5 Hyperlipidemia, unspecified Stefan S. Grissom, DO FACC 04/07/2019 N18.9 Chronic kidney disease, unspecified Stefan S. Grissom, DO FACC 04/07/2019 F17.201 Nicotine dependence, unspecified, in Stefan S. 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 Grissom, DO FACC 03/09/2019 F17.201 Nicotine dependence, unspecified, in Stefan S. Grissom, DO FACC remission 03/09/2019 I73.9 Peripheral vascular disease, unspecified Stefan S. Grissom, DO FACC 03/09/2019 I65.29 Occlusion and stenosis of unspecified Stefan S. Grissom, DO FACC carotid artery 03/09/2019 E78.5 Hyperlipidemia, unspecified Stefan S. 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 coronary artery with 02/24/2019 I35.0 Nonrheumatic aortic (valve) stenosis Stefan S. Grissom, DO FACC 02/16/2019 I35.0 Nonrheumatic aortic (valve) stenosis Stefan SNeil Carboneno, DO FACC 02/16/2019 R07.9 Chest pain, unspecified Stefan S. Grissom, DO FACC 02/16/2019 F17.201 Nicotine dependence, unspecified, in Stefan S. Grissom, DO FACC remission 02/16/2019 I73.9 Peripheral vascular disease, unspecified Stefan S. Grissom, DO FACC 02/16/2019 I65.29 Occlusion and stenosis of unspecified Stefan S. Grissom, DO FACC carotid artery 02/16/2019 E78.5 Hyperlipidemia, unspecified Stefan SNeil Carboneno, DO FACC Plan of Treatment Future Appointment(s):08/03/2019 2:00 pm - Traveling ECHO 1 at [facility]08/03/2019 1:30 pm - Nurse Visit IC at [facility]07/05/2019 - PACO Lind0 Essential (primary) hypertensionComments: Continue on present management. You have an appointment with Dr. Grissom on .Z95.0 Presence of cardiac pacemaker Functional Status Description No Information Available Mental Status Description No Information Available Referrals Refer to Dr Reason for Referral Status Appt Date Michel Perez MD consider TAVR, see stress echo from 05/10/2019 Closed [address] [place] [address] [phone] Michel Perez MD as reviewed with Dr. Perez, please arrange for Sent [facility] PCI, does not need office visit first [address] [place] [address] [phone]
--- OUTSIDE RECORDS SUMMARY | 2019-07-27 21:15 | XMS REPORT | Continuity of Care Document ---
:1940 External Reference #:[id number] Author Name Selina Cespedes Care Team Providers Name Role Phone Michael Fihser MD - Gastroenterology Care Team Information Heat Treat Worker Denisse Calvert MD - Internal Medicine Care Team Information Heat Treat Worker [phone] Problems Active Problems Provider Date Aortic valve [...] CPT Code Status Date Vaccine Lot # [id number] Given 09/23/2018 Influenza Virus Vaccine, Quadrivalent, Split, [id number] Preservative Free 50029 Given 04/28/2018 Pneumococcal Conjugate Vaccine 13 Valent For [id number] Intramuscular Use 94593 Given 10/03/2017 Influenza Virus Vaccine, Quadrivalent, Split, Preservative Free 09830 Given 01/13/2016 Tdap - Tetanus/Diptheria/Acellular Pertussis Vital [...] Test Result H/L Range Note Laboratory test [facility] Troponin-I 0.35 ng/mL Critical high <0.04 1 finding [address] (TnI) [place] [address] [phone] CBC Auto Diff [facility] White 7.2 10^3/uL Normal 3.5-10.[address] [place] [address] Count [phone] Red Blood Count 3.84 10^6/uL Low 4.18-5.48 [...] Blood Cells % 0.0 Laboratory test 06/27/2019 [facility] Pathologist (SEE NOTE) [address] [place] [address] [phone] Laboratory test 06/27/2019 [facility] Lactic Acid 1.2 mmol/L Normal 0.5-[address] [place] [address] [phone] Troponin-I (TnI) 0.18 ng/mL Critical high <0.04 4 Comp Metabolic 06/27/2019 [facility] Sodium 135 mmol/L Normal 135-145 Panel [address] [place] [address] [phone] Potassium 4.0 mmol/L Normal 3.5-5.0 Chloride 103 [...] Egfr 46.8 >60 5 Laboratory test 06/27/2019 [facility] Magnesium 1.8 mg/dL Low 1.9-2.7 finding [address] [place] [address] [phone] TSH (Thyroid Stim Horm) 5.03 mcIU/mL Normal 0.34-5.60 Urinalysis Profile 06/27/2019 [facility] Urine Color Yellow [address] [place] [address] [phone] Urine Appearance Clear Urine Specific [place] 1.012 Normal 1.010-1.030 Urine pH 6.0 Normal [...] Bacteria Absent Absent Urine Culture And 06/27/2019 [facility] Urine SEE RESULT [address] [place] [address] [phone] CBC Auto Diff 04/30/2019 [facility] White Blood 6.2 10^3/uL Normal 3.5-[address] Count 0.8 [place] [address] [phone] Red Blood Count 4.18 10^6/uL Normal 4.18-5.48 [...] Blood Cells % 0.0 Comp Metabolic 04/30/2019 [facility] Sodium 135 mmol/L Normal 135-[address] [place] [address] [phone] Chloride 104 mmol/L Normal 101-111 Co2 Carbon [...] 5 mmol/L Normal 2-11 Basic Metabolic 03/24/2019 [facility] Sodium 140 mmol/L Normal 135-[address] [place] [address] [phone] Potassium 4.5 mmol/L Normal 3.5-5.0 Chloride 106 mmol/L Normal 101-111 Co2 Carbon Dioxide 28 mmol/L Normal 22-32 Anion Gap 6 mmol/L Normal 2-11 Glucose 84 mg/dL Normal 70-100 Blood Urea Nitrogen 26 mg/dL High 6-24 Creatinine 1.50 mg/dL High 0.67-1.17 BUN/Creatinine Ratio 17.3 Normal 8-20 Calcium 9.4 mg/dL Normal 8.6-10.3 Egfr Non- 45.3 >60 Egfr 54.8 >60 8 CBC No Diff 03/24/2019 [facility] White Blood 6.0 10^3/uL Normal 3.5-10.[address] [place] [address] [phone] Red Blood Count 4.37 10^6/uL Normal 4.18-5.48 Hemoglobin 13.7 g/dL Low 14.0-18.0 Hematocrit 41 % Low 42-52 Mean Corpuscular Volume 93 fL Normal 80-94 Mean Corpuscular Hemoglobin 31 pg Normal 27-31 Mean Corpuscular HGB Conc 34 g/dL Normal 31-36 Red Cell Distribution Width 15 % Normal 10.5-15 Platelet Count 156 10^3/uL Normal 150-450 Mean Platelet Volume 6.9 fL Low 7.4-10.4 Inr/Protime 03/01/2019 [facility] Inr 0.90 Normal 0.77-1.[address] [place] [address] [phone] Basic Metabolic 03/01/2019 [facility] Sodium 136 mmol/L Normal 135-145 Panel [address] [place] [address] [phone] Potassium 4.2 mmol/L Normal 3.5-5.0 Chloride 105 mmol/L Normal 101-111 Co2 Carbon Dioxide 23 mmol/L Normal 22-32 Anion Gap 8 mmol/L Normal 2-11 Glucose 118 mg/dL High 70-100 Blood Urea Nitrogen 21 mg/dL Normal 6-24 Creatinine 1.29 mg/dL High 0.67-1.17 BUN/Creatinine Ratio 16.3 Normal 8-20 Calcium 9.4 mg/dL Normal 8.6-10.3 Egfr Non- 53.9 >60 Egfr 65.2 >60 9 CBC Auto 03/01/2019 [facility] White Blood 5.9 10^3/uL Normal 3.5-10.[address] [place] [address] [phone] Red Blood Count 4.74 10^6/uL Normal 4.18-5.48 [...] Blood Cells % 0 Venous Blood 03/01/2019 [facility] Venous Blood 7.36 Normal 7.32-7.[address] [place] [address] [phone] Venous Pco2 42 mmHg Normal 41-51 Venous Po2 42.0 mmHg Normal 35-45 Venous O2 Saturation 73.5 % Normal 70-80 Venous Blood Base Excess -1.8 mmol/L Low 0.0-4.0 10 Venous Bicarbonate Hco3 22.8 mmol/L Low 24-28 Arterial Blood 03/01/2019 [facility] PH Arterial 7.37 Normal 7.35-7.[address] [place] [address] [phone] Pco2 Arterial 39 mmHg Normal 35-45 Po2 Arterial 68 mmHg Low 80-100 O2 Saturation Arterial 94.4 % Normal 94.0-98.0 Base Excess Arterial -2.5 mmol/L Low -2.0-2.0 11 Hco3 Arterial 22.9 mmol/L Normal 19-31 So2 03/01/2019 [facility] Poc So2 90 % 12 [address] [place] [address] [phone] Poc Specimen Type Arterial 13 1 Result TnIDx:0.35 Called to [id number] at: 06:14:17 by:[id number] Read back by: [id number] Troponin-I testing on Plasma Separator Tubes (PST) has a known false positive rate of 0.20-0.40%. All positive troponins reflex immediately to secondary confirmatory testing. Using the FST21 DxI 800 Access Immunoassay systems, the 99th percentile upper reference limit was demonstrated to be < 0.03 ng/mL. 2 Mild macrocytic anemia with thrombocytopenia noted. No schistocytes or blasts are identified. Additional studies as clinically warranted. Reviewed by Dr. Pacheco 3 [facility] Severe Sepsis and Septic Shock Management Bundle Measure requires all lactic acids initially measuring >2.0 mmol/L be repeated. 4 Result TnIDx:0.18 Called to [id number] at: 03:39:06 by:[id number] Read back by: [id number] Troponin-I testing on Plasma Separator Tubes (PST) has a known false positive rate of 0.20-0.40%. All positive troponins reflex immediately to secondary confirmatory testing. Using the FST21 DxI 800 Access Immunoassay systems, the 99th percentile [...] [address]: Mesha Caldera MD Acct: [id number] Unit: [id number] AGE: 78 Location: ICU [id number] Re06/27/19 Dis: 06/27/19 SEX: M Status: DIS IN SPEC: [id number] ADINA: 06/27/[address] [facility] [address]: Sachin Grayson MD REQ: [id number] RECD: 06/27/19 STATUS: [facility] DR: Anthony Draper COIN MACHINE OPERATOR _ SOURCE: URINE [facility]: ORDERED: Urine Culture Procedure Result Reported Site Urine Culture Final 06/29/19- 0838 ML Organism 1 [facility] [place] Count 25-50,000 (Moderate) CFU/ML 1. [facility]LE[facility]A [facility] [...] . END OF REPORT DEPARTMENT OF PATHOLOGY, [address] [place] [address] Beto Pacheco M.D. Director [facility] # [id number] 7 Because ethnic data is not always [...] Range: 95-98% Venous Reference Range: 70-80% 13 Keno Attendant: [id number] Procedures Date Code Description Status 06/27/2019 33256 Insert Non-Tunneled Venous Catether Completed 06/27/2019 05057 Temp. Pacemaker Insertion Completed 05/10/2019 10914 Stress ECHO Interpretation/Report Hospital Completed 05/10/2019 41236 Treadmill Interp/Report Only Completed 05/10/2019 56567 Stress Test Supervsn W/Out I/R Completed 05/03/2019 78350 EKG Tracing & Interpretation Completed 04/07/2019 42146 EKG Tracing & Interpretation Completed 04/05/2019 267019417 Diabetic Retinal Eye Exam Completed 03/01/2019 68361 RT & lt Cath W/Injx HRT Art&L Ventr Img S&I Completed 02/24/2019 04043 ECHO Stress Test Incl Perf Contiuous ekg Monitoring Completed W/Phys Superv 02/16/2019 83828 EKG Tracing & Interpretation Completed 10/14/2018 682495433 Diabetic Retinal Eye Exam Completed 10/12/2018 702907104 Diabetic Retinal Eye Exam Completed Medical Devices Description No Information Available Encounters Type Date Location Provider Dx Diagnosis Office Visit 04/07/2019 [facility] Stefan Grissom, 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 10:45a [facility] DO 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 w unsp ang pctrs I35.0 Nonrheumatic aortic (valve) stenosis I73.9 Peripheral vascular disease, unspecified I65.29 Occlusion and stenosis of unspecified carotid artery E78.5 Hyperlipidemia, unspecified N18.9 Chronic kidney disease, unspecified F17.201 Nicotine dependence, unspecified, in remission Office Visit 03/09/2019 9:20a [facility] Stefan Jasso 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 DO Jaciel disease of FACC [place] cor art w unsp ang pctrs I35.0 Nonrheumatic aortic (valve) stenosis F17.201 Nicotine dependence, unspecified, in remission I73.9 Peripheral vascular disease, unspecified I65.29 Occlusion and stenosis of unspecified carotid artery E78.5 Hyperlipidemia, unspecified Office Visit 02/16/2019 11:45a [facility] Stefan Jasso I35.0 Nonrheumatic Of Lisa Grissom, DO aortic [...] Nonrheumatic aortic (valve) stenosis Stefan Grissom, DO FAC 05/03/2019 I10 Essential (primary) hypertension Nurse Visit IC 05/03/2019 I45.10 Unspecified right bundle-branch block Nurse Visit IC 04/07/2019 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, 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 with 04/07/2019 I35.0 Nonrheumatic aortic (valve) stenosis Stefan Grissom, DO FACC 04/07/2019 I73.9 Peripheral vascular disease, unspecified Stefan Grissom, DO FACC 04/07/2019 I65.29 Occlusion and stenosis of unspecified Stefan Grissom, DO FACC carotid artery 04/07/2019 E78.5 Hyperlipidemia, unspecified Stefan SNeil Grissom, DO FACC 04/07/2019 N18.9 Chronic kidney disease, unspecified Stefan Grissom, DO FACC 04/07/2019 F17.201 Nicotine dependence, unspecified, in Stefan Grissom, DO FACC remission 03/09/2019 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 Grissom, DO FACC 03/09/2019 I65.29 Occlusion and stenosis of unspecified Stefan S. Grissom, DO FACC carotid artery 03/09/2019 E78.5 Hyperlipidemia, unspecified Stefan SNeil Carboneno, DO FACC 03/01/2019 I25.10 Atherosclerotic heart disease of [place] Kanu Marte M.D. coronary artery with 02/24/2019 I35.0 Nonrheumatic aortic (valve) stenosis Stefan SNeil Carboneno, DO FACC 02/16/2019 I35.0 Nonrheumatic aortic (valve) stenosis Stefan SNeil Carboneno, DO FACC 02/16/2019 R07.9 Chest pain, unspecified Stefan SNeil Grissom, DO FACC 02/16/2019 F17.201 Nicotine dependence, unspecified, in Stefan Grissom, DO FACC remission 02/16/2019 I73.9 Peripheral vascular disease, unspecified Stefan S. Grissom, DO FACC 02/16/2019 I65.29 Occlusion and stenosis of unspecified Stefan S. Jaciel, DO FACC carotid artery 02/16/2019 E78.5 Hyperlipidemia, unspecified Stefan S. Grissom, DO FAC Plan of Treatment Future Appointment(s):08/03/2019 2:00 pm - Traveling ECHO 1 at [facility]08/03/2019 1:30 pm - Nurse Visit IC at [facility]07/05/2019 - PACO Lind0 Essential (primary) hypertensionComments: Continue on present management. You have an appointment with Dr. Grissom on .Z95.0 Presence of cardiac pacemaker Functional Status Description No Information Available Mental Status Description No Information Available Referrals Refer to Dr Reason for Referral Status Appt Date Michel Perez MD consider TAVR, see stress echo from 05/10/2019 Closed [address] [place] [address] [phone] Michel Perez MD as reviewed with Dr. Perez, please arrange for Sent [facility] PCI, does not need office visit first [address] [place] [address] [phone]
[2019-07-27] MEDS ORDERED: Benzonatate CAP* 100 MG PO ONE (21:52)
[2019-07-27] MEDS ORDERED: Amoxicillin PO (*) 500 MG CAP PO ONE (21:52)
--- NOTE | 2019-07-27 21:55 | UC ---
Respiratory Complaint HPI - HPI Summary HPI Summary: 78 yo male presents here with sore throat and cough associated with phelgm production hoarse no CP or SOB no f/c states he usually would not be concerned but has has three surgical procedures in the past 5 mos (stents/pacer/valve replacement) - History of Current Complaint Chief Complaint: UCRespiratory Stated Complaint: SORE THROAT Time Seen by Provider: 07/27/19 21:43 Hx Obtained From: Patient Onset/Duration: Gradual Onset, Lasting Hours Timing: Constant Severity Initially: Mild Severity Currently: Mild Pain Intensity: 4 Pain Scale Used: 0-10 Numeric Character: Cough: Productive Aggravating Factors: Other - tickle in throat Associated Signs And Symptoms: Positive: Nasal Congestion, Hoarseness. Negative : Dyspnea, Fever, Chills, Pleuritic Chest Pain, Wheezing, Hemoptysis, Dizziness , Calf Pain, Calf Swelling, Edema, URI, Sinus Discomfort - Allergies/Home Medications Allergies/Adverse Reactions: Allergies Allergy/AdvReac Type Severity Reaction Status Date / Time No Known Drug Allergies Allergy none Verified 07/27/19 21:09 Home Medications: Home Medications Acetaminophen [Acetaminophen Extra Strength] 500 mg PO Q6H PRN 07/27/19 [ History Confirmed 07/27/19] PMH/Surg Hx/FS Hx/Imm Hx Previously Healthy: Yes Cardiovascular History: Cardiac Disease, Hypertension, Pacemaker/ICD - Surgical History Surgical History: Yes Surgery Procedure, Year, and Place: carotid artery left; torn rotator cuff right. aortic valve replacement - Family History Known Family History: Positive: Unknown - Pt denies family history when asked., Cardiac Disease - [place], Diabetes - Social History Alcohol Use: Daily Alcohol Amount: 2-3 drinks per day Substance Use Type: None Smoking Status (MU): Former Smoker Type: Cigarettes Amount Used/How Often: smoked off an on for many years-quit 2003 < 1ppd at the time Have You Smoked in the Last Year: No When Did the Patient Quit Smoking/Using Tobacco: 14 yrs - Immunization History Most Recent Influenza Vaccination: Fall 2016 Most Recent Tetanus Shot: 01/13/16 Most Recent Pneumonia Vaccination: patient stated 1-2 years ago Review of Systems All Other Systems Reviewed And Are Negative: Yes Constitutional: Positive: Negative Skin: Positive: Negative Eyes: Positive: Blurred Vision ENT: Positive: Sore Throat, Nasal Discharge, Sinus Congestion, Sinus Pain/ Tenderness Respiratory: Positive: Cough Cardiovascular: Positive: Negative Gastrointestinal: Positive: Negative Genitourinary: Positive: Negative Motor: Positive: Negative Neurovascular: Positive: Negative Musculoskeletal: Positive: Negative Neurological: Positive: Negative Psychological: Positive: Negative Physical Exam Triage Information Reviewed: Yes Appearance: Well-Appearing, No Pain Distress, Well-Nourished Vital Signs: Initial Vital Signs Temp 97.9 F 07/27/19 21:03 Pulse 82 07/27/19 21:03 Resp 16 07/27/19 21:03 BP 142/69 07/27/19 21:03 Pulse Ox 97 07/27/19 21:03 Vital Signs Reviewed: Yes Eyes: Positive: Conjunctiva Clear ENT: Positive: Hearing grossly normal, Pharyngeal erythema, Nasal congestion, Hoarse voice. Negative: Tonsillar swelling, Tonsillar exudate, Trismus, Muffled voice, Sinus tenderness, Uvula midline Neck: Positive: Supple, Nontender, No Lymphadenopathy Respiratory: Positive: Lungs clear, Normal breath sounds, No respiratory distress, No accessory muscle use Cardiovascular: Positive: RRR Musculoskeletal: Positive: ROM Intact, No Edema Neurological: Positive: Alert Psychological Exam: Normal Skin Exam: Normal Respiratory Course/Dx - Differential Dx/Diagnosis Provider Diagnosis: Bronchitis after surgery, Acute pharyngitis Discharge ED - Sign-Out/Discharge Documenting (check all that apply): Patient Departure All imaging exams completed and their final reports reviewed: No Studies - Discharge Plan Condition: Stable Disposition: HOME Prescriptions: Amoxicillin PO (*) [Amoxicillin 500 MG CAP*] 500 mg PO BID #14 cap Benzonatate CAP* [Tessalon CAP*] 100 - 200 mg PO TID PRN #28 cap PRN Reason: Cough Patient Education Materials: Pharyngitis (ED), Acute Bronchitis (ED) Referrals: Anthony Draper NP [Primary Care Provider] - (recheck in 3-5 days) Additional Instructions: recheck for new or worsening symptoms - Billing Disposition and Condition Condition: STABLE Disposition: Home
== END 2019-07-27 22:03 | disposition home or self-care (01) ==
LOC: UCEAST 20:54
DX: J40 Bronchitis, not specified as acute or chronic (principal); J02.9 Acute pharyngitis, unspecified; I10 Essential (primary) hypertension; Z87.891 Personal history of nicotine dependence; Z95.0 Presence of cardiac pacemaker; Z95.2 Presence of prosthetic heart valve
CPT/HCPCS: 87651; 99212; A9270-GY; G0463